=== PATIENT | female | born 1940 | race Caucasian/White ===

== ENCOUNTER 2019-05-24 13:58 | Emergency (ER) | payer OTHER ==
--- OUTSIDE RECORDS SUMMARY | 2019-05-24 14:01 | XMS REPORT ---
:1940 Author Organization eClinicalWorks Care Team Providers Name Role Phone Dawson, Na Provider Role Unavailable Allergies, Adverse Reactions, Alerts Substance Reaction Event Type Iodine Info Not Available Drug Allergy Problems Problem Type Condition Code Onset Dates Condition Status Assessment Renal insufficiency N28.9 Active Assessment Irritable bowel syndrome with both K58.2 Active constipation and diarrhea Problem Weight loss R63.4 Active Assessment Gastroesophageal reflux disease K21.9 Active without esophagitis Problem HTN (hypertension) I10 Active Assessment Primary insomnia F51.01 Active Problem Hypothyroidism E03.9 Active Problem Hyperlipidemia E78.5 Active Problem Allergic rhinitis J30.9 Active Problem History of thyroid cancer Z85.850 Active Problem Irritable bowel syndrome with both K58.2 Active constipation and diarrhea Assessment Depression with anxiety F41.8 Active Assessment Chronic a-fib I48.2 Active Problem Irritable bowel syndrome with K58.0 Active diarrhea Assessment Diarrhea, unspecified type R19.7 Active Problem Primary insomnia F51.01 Active Problem Gastroesophageal reflux disease K21.9 Active without esophagitis Problem Seasonal allergies J30.2 Active Problem Chronic obstructive pulmonary J44.9 Active disease (COPD) Assessment HTN (hypertension) I10 Active Assessment Hypothyroidism E03.9 Active Assessment Hyperlipidemia E78.5 Active Problem Depression with anxiety F41.8 Active Problem Chronic a-fib I48.2 Active Problem Situational insomnia F51.09 Active Problem Abnormal lung field R91.8 Active Medications Medication Code Code Instructions Start End Status Dosage System Date Date Synthroid [facility] 16244991926 100 MCG Orally Active 1 tablet Once a day on an empty stomach in the morning Ranitidine HCl [facility] 54634836098 150 orally at Active 1 tablet bedtime Ultram [facility] 61818768090 50 MG Orally Active 1 tablet every 6 hrs as needed Claritin [facility] 29383569221 10 MG Orally Active 1 tablet Once a day Coreg [facility] 00212338232 6.25 MG Orally Active as twice daily directed Cholestyramine ND 27910413531 4 GM Orally Apr 10, Active 1 packet Twice a day 2018 mixed with water or non-carbon ated drink Xarelto [facility] 01523857402 20 MG Orally Active 1 tablet Once a day with food Flonase [facility] 65520100048 50 MCG/ACT Active 1 spray in Nasally Once a each day nostril Albuterol Sulfate [facility] 96174703091 108 (90 Base) Active 2 puffs as MCG/ACT needed Inhalation every 6 hrs Vitamin D-[address] [facility] 56769076403 5000 UNIT Active as Orally directed Restasis [facility] 44541919557 0.05 % Active 1 drop Ophthalmic into Twice a day affected eye Ambien [facility] 12976005775 10 MG Orally Active 1 tablet Once a day at bedtime as needed Lipitor [facility] 56970490128 10 MG Orally Active 1 tablet Once a day Tylenol Arthritis [facility] 0 650 MG Orally Active 1 tablet Pain at bedtime Ventolin HFA [facility] 82491367437 108 (90 Base) Active 2 puffs as MCG/ACT needed Inhalation every 6 hrs PRN SOB BusPIRone HCl [facility] 91177296633 10 MG Orally Inactive 1 tablet Twice a day Paxil [facility] 98066749854 10 MG Orally Active 1 tablet Once a day in the morning Omeprazole [facility] 71343932740 40 MG Orally Active 1 capsule Once a day Results No Known Results Summary Purpose eClinicalWorks Submission
--- OUTSIDE RECORDS SUMMARY | 2019-05-24 14:01 | XMS REPORT ---
:1940 Author Organization eClinicalWorks Care Team Providers Name Role Phone Dawson, Na Provider Role Unavailable Allergies No Known Allergies Problems Problem Type Condition Code Onset Dates Condition Status Problem Hypothyroidism E03.9 Active Problem Hyperlipidemia E78.5 Active Problem Allergic rhinitis J30.9 Active Problem History of thyroid cancer Z85.850 Active Assessment Primary insomnia F51.01 Active Problem Irritable bowel syndrome with both K58.2 Active constipation and diarrhea Assessment Diarrhea, unspecified type R19.7 Active Problem Irritable bowel syndrome with K58.0 Active diarrhea Problem Primary insomnia F51.01 Active Problem Gastroesophageal reflux disease K21.9 Active without esophagitis Problem Seasonal allergies J30.2 Active Problem Chronic obstructive pulmonary J44.9 Active disease (COPD) Assessment Hyperlipidemia E78.5 Active Assessment HTN (hypertension) I10 Active Assessment Hypothyroidism E03.9 Active Problem Depression with anxiety F41.8 Active Problem Chronic a-fib I48.2 Active Problem Situational insomnia F51.09 Active Problem Weight loss R63.4 Active Problem Abnormal lung field R91.8 Active Problem HTN (hypertension) I10 Active Medications No Known Medications Results No Known Results Summary Purpose eClinicalWorks Submission
--- OUTSIDE RECORDS SUMMARY | 2019-05-24 14:01 | XMS REPORT ---
:1940 Author Organization eClinicalWorks Care Team Providers Name Role Phone Dawson, Na Provider Role Unavailable Allergies, Adverse Reactions, Alerts Substance Reaction Event Type Iodine Info Not Available Drug Allergy Problems Problem Type Condition Code Onset Dates Condition Status Assessment Renal insufficiency N28.9 Active Assessment Change in bowel habits R19.4 Active Assessment Irritable bowel syndrome with both K58.2 Active constipation and diarrhea Problem Weight loss R63.4 Active Assessment Gastroesophageal reflux disease K21.9 Active without esophagitis Problem HTN (hypertension) I10 Active Assessment Diarrhea, unspecified type R19.7 Active Problem Hypothyroidism E03.9 Active Problem Hyperlipidemia E78.5 Active Problem Allergic rhinitis J30.9 Active Problem History of thyroid cancer Z85.850 Active Problem Irritable bowel syndrome with both K58.2 Active constipation and diarrhea Assessment Depression with anxiety F41.8 Active Assessment Primary insomnia F51.01 Active Problem Irritable bowel syndrome with K58.0 Active diarrhea Assessment Chronic a-fib I48.2 Active Problem Primary insomnia F51.01 Active Problem [...] Start End Status Dosage System Date Date Ultram [facility] 48821993447 50 MG Orally Active 1 tablet as every 6 hrs needed Coreg [facility] 11687641111 6.25 MG Orally Active as directed twice daily Ranitidine HCl [facility] 21318505813 150 orally at Active 1 tablet bedtime Synthroid [facility] 24499059403 100 MCG Orally Active 1 tablet on Once a day an empty stomach in the morning BusPIRone HCl [facility] 79900020654 10 MG Orally Inactive 1 tablet Twice a day Paxil [facility] 54768510740 10 MG Orally Oct 08, Active 1 tablet in Once a day 2019 the morning Tylenol ND 0 650 MG Orally Active 1 tablet Arthritis Pain at bedtime Albuterol [facility] 85503260609 108 (90 Base) Active 2 puffs as Sulfate MCG/ACT needed Inhalation every 6 hrs Xarelto [facility] 96808411951 20 MG Orally Active 1 tablet Once a day with food Lipitor [facility] 21971938331 10 MG Orally Active 1 tablet Once a day Restasis [facility] 50872839328 0.05 % Active 1 drop into Ophthalmic affected Twice a day eye Vitamin D-3 [facility] 19043387099 5000 UNIT Active as directed Orally Claritin [facility] 39431131297 10 MG Orally Active 1 tablet Once a day Omeprazole [facility] 47967389319 40 MG Orally Active 1 capsule Once a day Ambien [facility] 88865481494 10 MG Orally Active 1 tablet at Once a day bedtime as needed Ventolin HFA [facility] 29517713394 108 (90 Base) Active 2 puffs as MCG/ACT needed Inhalation every 6 hrs PRN SOB Flonase [facility] 86514287104 50 MCG/ACT Active 1 spray in Nasally Once a each day nostril Results No Known Results Summary Purpose eClinicalWorks Submission
--- OUTSIDE RECORDS SUMMARY | 2019-05-24 14:02 | XMS REPORT ---
[...] both K58.2 Active constipation and diarrhea Problem Irritable bowel syndrome with K58.0 Active diarrhea Problem Primary insomnia F51.01 Active Problem Gastroesophageal reflux disease K21.9 Active without esophagitis Problem Seasonal allergies J30.2 Active Problem Chronic obstructive pulmonary J44.9 Active disease (COPD) Assessment Primary insomnia F51.01 Active Problem Depression with anxiety F41.8 Active Problem Chronic a-fib I48.2 Active Problem Situational insomnia F51.09 Active Problem Weight loss R63.4 Active Problem Abnormal lung field R91.8 Active Problem HTN (hypertension) I10 Active Medications Medication Code System Code Instructions Start End Date Status Dosage Date Meme [facility] 40118190864 10 MG Orally Active 1 tablet at Once a day bedtime as needed Results No Known Results Summary Purpose eClinicalWorks Submission
[2019-05-24] MEDS ORDERED: DIAZEPAM 5 MG TABLET ONE (15:39)
[2019-05-24] MEDS ORDERED: KETOROLAC 30 MG/ML INJ ONE (15:40)
--- NOTE | 2019-05-24 16:13 | RAD REPORT ---
EXAM DESCRIPTION: RAD - Lumbar Spine 3 Views - 05/24/2019 3:54 pm CLINICAL HISTORY: Back pain FINDINGS: The alignment of the lumbar spine is satisfactory. No fracture or dislocation is seen. Mild spondylosis involves the lumbar spine Bones are osteoporotic. Minimal scoliosis
--- NOTE | 2019-05-24 16:22 | EDPHYS ---
Physician Documentation [facility] Name: Ricarda Dixon Age: 79 yrs Sex: Female : 1940 Arrival Date: 05/24/2019 Time: 13:59 Bed 17 Private MD: Bessy Dawson ED Physician Miguel Kidd HPI: 05/24 16:16 This 79 yrs old Female presents to ER via Wheelchair with complaints of Back snw Pain, Leg Pain. 16:16 The patient presents with pain that is acute, with no known mechanism of injury. The snw symptoms are located in the low back. Onset: The symptoms/episode began/occurred gradually, 3 day(s) ago, and became worse and became persistent. The pain radiates to the right and left quadriceps. Associated signs and symptoms: Pertinent positives: none Pertinent negatives: constipation, incontinence, numbness, tingling, urinary retention, vomiting. The problem was sustained when bending over. Severity of symptoms: At their worst the symptoms were incapacitating, in the emergency department the symptoms have improved, moderately. The patient has experienced a previous episode, many years ago. The patient has not recently seen a physician. Historical: - Allergies: 14:09 Hydrocodone-Acetaminophen; sv 14:09 Iodine; sv 14:09 Morphine; sv 14:09 Sulfa (Sulfonamide Antibiotics); sv - PMHx: 14:09 Atrial Fib; THYROID CANCER; sv - Immunization history:: Adult Immunizations up to date. - Social history:: Smoking status: Patient uses tobacco products, denies chronic smoking, but will smoke occasionally. - Ebola Screening: : Patient negative for fever greater than or equal to 101.5 degrees Fahrenheit, and additional compatible Ebola Virus Disease symptoms Patient denies exposure to infectious person Patient denies travel to an Ebola-affected area in the 21 days before illness onset. ROS: 15:27 Constitutional: Negative for fever, chills, and weight loss, Eyes: Negative for injury, snw pain, redness, and discharge, ENT: Negative for injury, pain, and discharge, Neck: Negative for injury, pain, and swelling, Cardiovascular: Negative for chest pain, palpitations, and edema, Respiratory: Negative for shortness of breath, cough, wheezing, and pleuritic chest pain, Abdomen/GI: Negative for abdominal pain, nausea, vomiting, diarrhea, and constipation, : Negative for injury, bleeding, discharge, and swelling, MS/Extremity: Negative for injury and deformity, Skin: Negative for injury, rash, and discoloration, Neuro: Negative for headache, weakness, numbness, tingling, and seizure, Psych: Negative for depression, anxiety, suicide ideation, homicidal ideation, and hallucinations. 15:27 Back: Positive for decreased range of motion, pain at rest, pain with movement, of the low back area. Exam: 15:26 Constitutional: This is a well developed, well nourished patient who is awake, alert, snw and in no acute distress. Head/Face: Normocephalic, atraumatic. Eyes: Pupils equal round and reactive to light, extra-ocular motions intact. Lids and lashes normal. Conjunctiva and sclera are non-icteric and not injected. Cornea within normal limits. Periorbital areas with no swelling, redness, or edema. ENT: Nares patent. No nasal discharge, no septal abnormalities noted. Tympanic membranes are normal and external auditory canals are clear. Oropharynx with no redness, swelling, or masses, exudates, or evidence of obstruction, uvula midline. Mucous membranes moist. Neck: Trachea midline, no thyromegaly or masses palpated, and no cervical lymphadenopathy. Supple, full range of motion without nuchal rigidity, or vertebral point tenderness. No Meningismus. Chest/axilla: Normal chest wall appearance and motion. Nontender with no deformity. No lesions are appreciated. Cardiovascular: Regular rate and rhythm with a normal S1 and S2. No gallops, murmurs, or rubs. Normal PMI, no JVD. No pulse deficits. Respiratory: Lungs have equal breath sounds bilaterally, clear to auscultation and percussion. No rales, rhonchi or wheezes noted. No increased work of breathing, no retractions or nasal flaring. Abdomen/GI: Soft, non-tender, with normal bowel sounds. No distension or tympany. No guarding or rebound. No evidence of tenderness throughout. Skin: Warm, dry with normal turgor. Normal color with no rashes, no lesions, and no evidence of cellulitis. MS/ Extremity: Pulses equal, no cyanosis. Neurovascular intact. Full, normal range of motion. Neuro: Awake and alert, GCS 15, oriented to person, place, time, and situation. Cranial nerves II-XII grossly intact. Motor strength 5/5 in all extremities. Sensory grossly intact. Cerebellar exam normal. Normal gait. Psych: Awake, alert, with orientation to person, place and time. Behavior, mood, and affect are within normal limits. 15:26 Back: pain, that is moderate, that is severe, of the low back area, ROM is painful, with all movement, normal spinal alignment noted, CVA tenderness, is absent, vertebral tenderness, is not appreciated, muscle spasm, is appreciated in the low back area. Vital Signs: 14:40 BP 142 / 62; Pulse 72; Resp 17 S; Temp 98.4(O); Pulse Ox 97% on R/A; Weight 51.26 kg ca1 (R); Height 5 ft. 4 in. (162.56 cm) (R); Pain 2/10; 15:59 BP 158 / 64; Pulse 71; Resp 17 S; Pulse Ox 98% on R/A; ca1 16:47 BP 161 / 72; Pulse 73; Resp 16 S; Pulse Ox 96% on R/A; ca1 14:40 Body Mass Index 19.40 (51.26 kg, 162.56 cm) ca1 MDM: 14:32 Patient medically screened. lissette 16:22 Data reviewed: vital signs, nurses notes. Data interpreted: Pulse oximetry: on room air snw is 98 %. Interpretation: normal. Counseling: I had a detailed discussion with the patient and/or guardian regarding: the historical points, exam findings, and any diagnostic results supporting the discharge/admit diagnosis, lab results, radiology results, the need for outpatient follow up, to return to the emergency department if symptoms worsen or persist or if there are any questions or concerns that arise at home. Response to treatment: the patient's symptoms have mildly improved after treatment. Special discussion: Based on the history and exam findings, there is no indication for further emergent testing or inpatient evaluation. 05/24 15:24 Order name: Lumbar Spine (3 Views) XRAY; Complete Time: 16:15 snw Administered Medications: 15:35 Drug: Valium 5 mg Route: PO; ca1 16:34 Follow up: Response: No adverse reaction; Pain is decreased; RASS: Alert and Calm (0) ca1 15:36 Drug: TORadol 30 mg Route: IM; Site: right gluteus; ca1 16:34 Follow up: Response: No adverse reaction; Pain is decreased ca1 16:34 Drug: fentaNYL (PF) 25 mcg Route: IM; Site: right deltoid; ca1 17:00 Follow up: Response: No adverse reaction; Pain is decreased; RASS: Alert and Calm (0) ca1 Disposition: 05/25 06:12 Co-signature as Attending Physician, Miguel Kidd MD I agree with the assessment and [facility] plan of care. Disposition: 05/24/19 16:21 Discharged to Home. Impression: Low back pain, Muscle spasm of back. - Condition is Stable. - Discharge Instructions: Back Pain, Adult, Muscle Cramps and Spasms, Musculoskeletal Pain, Back Injury Prevention, [facility]mrs-[facility]-Ek[facility], Cryotherapy, Rehydration, Adult, Heat Therapy. - Prescriptions for Diclofenac Sodium 75 mg Oral Tablet Sustained Release - take 1 tablet by ORAL route 2 times per day; 30 tablet. orphenadrine citrate 100 mg Oral Tablet Sustained Release - take 1 tablet by ORAL route 2 times per day As needed; 20 tablet. - Medication Reconciliation Form, Thank You Letter, Antibiotic Education, Prescription Opioid Use form. - Follow up: Emergency Department; When: As needed; Reason: Worsening of condition. Follow up: Bessy Dawson MD; When: 1 - 2 days; Reason: Recheck today's complaints, Continuance of care, Re-evaluation by your physician. Signatures: Dispatcher [employer] Alona High RN RN dm5 Brionna Patricio RN RN sv Anderson, Corey, MD MD cha Therrien, Shelly, RAIL BONDER-C RAIL BONDER-Csnw Afsaneh Alejandre RN RN ca1 Corrections: (The following items were deleted from the chart) 05/24 17:00 16:21 05/24/2019 16:21 Discharged to Home. Impression: Low back pain; Muscle spasm of dm5 back. Condition is Stable. Forms are Medication Reconciliation Form, Thank You Letter, Antibiotic Education, Prescription Opioid Use. Follow up: Emergency Department; When: As needed; Reason: Worsening of condition. Follow up: Bessy Dawson; When: 1 - 2 days; Reason: Recheck today's complaints, Continuance of care, Re-evaluation by your physician. snw
--- NOTE | 2019-05-24 16:22 | ER ---
Nurse's Notes [facility] Name: Ricarda Dixon Age: 79 yrs Sex: Female : 1940 Arrival Date: 05/24/2019 Time: 13:59 Bed 17 Private MD: Bessy Dawson Diagnosis: Low back pain;Muscle spasm of back Presentation: 05/24 14:07 Presenting complaint: Patient states: low back pain after reaching for something and "I sv felt something." c/o BLE pain. Transition of care: patient was not received from another setting of care. Onset of symptoms was May 22, 2019. Care prior to arrival: None. 14:07 Method Of Arrival: Wheelchair sv 14:07 Acuity: SANTINO 4 sv 14:40 Risk Assessment: Do you want to hurt yourself or someone else? Patient reports no ca1 desire to harm self or others. 14:40 Initial Sepsis Screen: Does the patient meet any 2 criteria? No. Patient's initial ca1 sepsis screen is negative. Does the patient have a suspected source of infection? No. Patient's initial sepsis screen is negative. Historical: - Allergies: 14:09 Hydrocodone-Acetaminophen; sv 14:09 Iodine; sv 14:09 Morphine; sv 14:09 Sulfa (Sulfonamide Antibiotics); sv - PMHx: 14:09 Atrial Fib; THYROID CANCER; sv - Immunization history:: Adult Immunizations up to date. - Social history:: Smoking status: Patient uses tobacco products, denies chronic smoking, but will smoke occasionally. - Ebola Screening: : Patient negative for fever greater than or equal to 101.5 degrees Fahrenheit, and additional compatible Ebola Virus Disease symptoms Patient denies exposure to infectious person Patient denies travel to an Ebola-affected area in the 21 days before illness onset. Screenin:40 Abuse screen: Denies threats or abuse. Denies injuries from another. Nutritional ca1 screening: No deficits noted. Tuberculosis screening: No symptoms or risk factors identified. 14:40 Fall Risk Gait- Impaired (20 pts.). ca1 Assessment: 14:40 General: Appears in no apparent distress. comfortable, Behavior is calm, cooperative, ca1 appropriate for age. Pain: Complains of pain in low back area Pain currently is 2 out of 10 on a pain scale. at worst was 9 out of 10 on a pain scale. Quality of pain is described as sharp, Pain began 2-3 days ago. Aggravated by repositioning, weight bearing, Noted to be grimacing. Neuro: Level of Consciousness is awake, alert, obeys commands, Oriented to person, place, time, situation, Appropriate for age. Cardiovascular: Heart tones S1 S2 present Capillary refill < 3 seconds Patient's skin is warm and dry. Respiratory: Airway is patent Respiratory effort is even, unlabored, Respiratory pattern is regular, symmetrical, Breath sounds are clear bilaterally. GI: Abdomen is flat, non-distended, Bowel sounds present X 4 quads. Abd is soft and non tender X 4 quads. : No signs and/or symptoms were reported regarding the genitourinary system. EENT: No signs and/or symptoms were reported regarding the EENT system. Derm: Skin is intact, is healthy with good turgor, Skin is pink, warm \\T\\ dry. Musculoskeletal: Circulation, motion, and sensation intact. Capillary refill < 3 seconds, Range of motion: intact in all extremities. 15:35 Reassessment: Patient appears in no apparent distress at this time. Patient and/or ca1 family updated on plan of care and expected duration. Pain level reassessed. Patient is alert, oriented x 3, equal unlabored respirations, skin warm/dry/pink. 15:42 Reassessment: Pt to Xray. ca1 15:59 Reassessment: Patient appears in no apparent distress at this time. Patient is alert, ca1 oriented x 3, equal unlabored respirations, skin warm/dry/pink. 16:47 Reassessment: Patient appears in no apparent distress at this time. Patient is alert, ca1 oriented x 3, equal unlabored respirations, skin warm/dry/pink. Patient states feeling better. Vital Signs: 14:40 BP 142 / 62; Pulse 72; Resp 17 S; Temp 98.4(O); Pulse Ox 97% on R/A; Weight 51.26 kg ca1 (R); Height 5 ft. 4 in. (162.56 cm) (R); Pain 2/10; 15:59 BP 158 / 64; Pulse 71; Resp 17 S; Pulse Ox 98% on R/A; ca1 16:47 BP 161 / 72; Pulse 73; Resp 16 S; Pulse Ox 96% on R/A; ca1 14:40 Body Mass Index 19.40 (51.26 kg, 162.56 cm) ca1 ED Course: 13:59 Patient arrived in ED. ag5 14:00 Bessy Dawson MD is Private Physician. ag5 14:08 [facility] snw 14:08 Miguel Kidd MD is Attending Physician. snw 14:08 Triage completed. sv 14:31 Afsaneh Alejandre RN is Primary Nurse. ca1 14:40 Patient has correct armband on for positive identification. Bed in low position. Call ca1 light in reach. Side rails up X 1. Pulse ox on. NIBP on. Warm blanket given. 14:40 Arm band placed on right wrist. ca1 14:40 No provider procedures requiring assistance completed. ca1 15:53 Lumbar Spine (3 Views) XRAY In Process Unspecified. EDMS 16:21 Bessy Dawson MD is Referral Physician. snw 16:55 Patient did not have IV access during this emergency room visit. ca1 Administered Medications: 15:35 Drug: Valium 5 mg Route: PO; ca1 16:34 Follow up: Response: No adverse reaction; Pain is decreased; RASS: Alert and Calm (0) ca1 15:36 Drug: TORadol 30 mg Route: IM; Site: right gluteus; ca1 16:34 Follow up: Response: No adverse reaction; Pain is decreased ca1 16:34 Drug: fentaNYL (PF) 25 mcg Route: IM; Site: right deltoid; ca1 17:00 Follow up: Response: No adverse reaction; Pain is decreased; RASS: Alert and Calm (0) ca1 Outcome: 16:21 Discharge ordered by MD. snw 16:55 Discharged to home via wheelchair, with significant other. ca1 16:55 Condition: stable 16:55 Discharge instructions given to patient, Instructed on discharge instructions, follow up and referral plans. medication usage, Demonstrated understanding of instructions, follow-up care, medications, Prescriptions given X 2. 17:00 Patient left the ED. dm5 Signatures: Dispatcher [employer] EDMS Alona Rayo RN RN dm5 Brionna Patricio RN RN Betty Frias FNP-C TOMOGRAPHIC TECH-Csnw Afsaneh Alejandre RN RN ca1 Ramila Brewster ag5
[2019-05-24] MEDS ORDERED: FENTANYL CITR 100 MCG/2 ML ONE (16:32)
[2019-05-24 17:33] VITALS: TEMP 98.4
[2019-05-24 17:35] VITALS: BP 161/72; O2SAT 96
== END 2019-05-24 17:00 | disposition home or self-care (01) ==
LOC: ER 13:58
DX: M54.5 Low back pain (principal); M62.830 Muscle spasm of back; Z88.6 Allergy status to analgesic agent; Z88.2 Allergy status to sulfonamides; Z91.09 Other allergy status, other than to drugs and biological substances; Z85.850 Personal history of malignant neoplasm of thyroid; F17.210 Nicotine dependence, cigarettes, uncomplicated
CPT/HCPCS: 72100; 96372; 99284; J3010

== ENCOUNTER → 2020-09-13 | Day surgery (SDC) | payer OTHER ==
[2011-07-03 12:19] VITALS: BP 119/63
--- NOTE | 2020-09-13 12:04 | RAD REPORT ---
EXAM DESCRIPTION: US - Breast Core BX w/US Guidance - 09/13/2020 10:13 am CLINICAL HISTORY: ICD R 92.8 COMPARISON: August 30, 2020 ultrasound TECHNIQUE: The risks, benefits alternatives to the procedure were explained to the patient and infor med consent obtained. Skin and subcutaneous tissues anesthetized with lidocaine. The periareolar region mass abuts the implant. Under sonographic guidance a [address] d into the mass. Through this an 18 gauge needle was placed and multiple core biopsies obtained. The specimens varied in size from a few millimeters to 20 millimeters. This was given to pathology . Patient experienced no immediate complication IMPRESSION: Core biopsies of the periareolar left breast mass
== END ==
LOC: DS 09:09
PROVIDERS: ATTEND Family Medicine
DX: R92.8 Other abnormal and inconclusive findings on diagnostic imaging of breast (principal)
CPT/HCPCS: 19083; 88305

== ENCOUNTER 2020-10-16 11:23 | Observation (INO) | payer OTHER ==
[2020-10-14 15:56] LABS: Absolute Lymphocytes (CBC) 1.3 K/uL (0.7-4.9); Basophils % 1.2 % (0-1.3); Hematocrit 37.8 % (36.0-45.0); Lymphocytes % 27.4 % (15.3-44.8); MPV 7.6 fL (7.6-11.3); RBC Red Blood Cell Count 3.95 M/uL (3.86-4.86)
[2020-10-14 16:17] LABS: Potassium 5.3 mmol/L (3.5-5.1)
--- NOTE | 2020-10-14 16:30 | RAD REPORT ---
EXAM DESCRIPTION: RAD - Chest Pa And Lat (2 Views) - 10/14/2020 4:11 pm CLINICAL HISTORY: preop' Chest pain. COMPARISON: Chest Pa And Lat (2 Views) dated 09/22/2016; Abdomen 1 View (KUB) dated 04/28/2016; Abdom en 1 View (KUB) dated 04/27/2016; Chest Single View dated 04/26/2016 FINDINGS: The lungs are mildly emphysematous clear. The heart is upper limit of normal in size. No d isplaced fractures. Calcified breast implants noted. IMPRESSION: Mild COPD.
--- NOTE | 2020-10-16 07:30 | EKG ---
Test Date: 2020-10-14 Test Time: 14:30:21 Sports Internship: MATTHEW MEASUREMENT RESULTS: Intervals: Rate: 72 WI: QRSD: 90 QT: 392 QTc: 429 [place]: P: WI: QRS: 144 T: 148 INTERPRETIVE STATEMENTS: Suspect arm lead reversal, interpretation assumes no reversal Atrial fibrillation with a competing junctional pacemaker Voltage criteria for left ventricular hypertrophy Lateral infarct, age undetermined Abnormal ECG Compared to ECG 04/27/2016 06:50:56 Myocardial infarct finding now present Electronically Signed On 10-16-20 07:26:52 CDT by Sheldon Martinez
[2020-10-16] MEDS ORDERED: Ringers Lactate 1,000 ML IV ONE (12:10)
[2020-10-16] MEDS ORDERED: CELECOXIB 100 MG CAPSULE ONE (13:00)
[2020-10-16] MEDS ORDERED: ACETAMINOPHEN 500 MG TAB ONE (13:00)
[2020-10-16] MEDS: CEFAZOLIN/SWI 1gm 1 GM/10 ML SYR ONE ×3 (13:28→14:06)
[2020-10-16] MEDS ORDERED: LIDOCAINE 1% MPF 5 ML VIAL ONE (14:20)
[2020-10-16] MEDS ORDERED: FENTANYL CITR 100 MCG/2 ML ONE ×2 (14:20→15:51)
[2020-10-16] MEDS ORDERED: MIDAZOLAM HCL 2 MG/2 ML INJ ONE (14:20)
[2020-10-16] MEDS ORDERED: propofoL 200 MG/20 ML VIAL IV ONE (14:20)
[2020-10-16] MEDS ORDERED: ROCURONIUM 50 MG/5 ML VIAL IV ONE (14:20)
[2020-10-16] MEDS ORDERED: dexAMETHasone 10 MG/ML VIAL ONE (14:46)
[2020-10-16] MEDS ORDERED: KETOROLAC 30 MG/ML INJ ONE (14:46)
[2020-10-16] MEDS ORDERED: ONDANSETRON 4 MG/2 ML VIAL ONE (15:06)
[2020-10-16] MEDS ORDERED: GLYCOPYRROLATE 0.2 MG/ML SYR ONE (15:06)
[2020-10-16] MEDS ORDERED: ONDANSETRON 4 MG/2 ML VIAL IV PRN (15:10)
[2020-10-16] MEDS ORDERED: MEPERIDINE HCL 25 MG/ML SYR IV PRN (15:10)
--- NOTE | 2020-10-16 15:10 | P.BOP ---
Preoperative diagnosis: Left breast cancer Postoperative diagnosis: same Primary procedure: 1. Left modified radical mastectomy Secondary procedure: 2. Left breast implant removal Risk Compliance Analyst: HARSHIL MINAYA (TIE PRESSER) Estimated blood loss: <50cc Specimen: eft breast with axillary dissection and breast implant. Findings: as above Anesthesia: General Complications: None Drain(s): JAMAL drain Transferred to: Recovery Room Condition: Good
--- OUTSIDE RECORDS SUMMARY | 2020-10-16 15:37 | XMS REPORT | Continuity of Care Document ---
:1940 Author Organization [facility] t Address [address] [place] [address] Care Team Providers Name Role Phone Unavailable Unavailable Unavailable Problems This patient has no known problems. Allergies, Adverse Reactions, Alerts Allergy Allergy Status Severity Reaction(s) Onset Inactive Treating Comm ents Source Name Type Date Date Clinician Iodine Adverse Active Info Not [facility] Reaction Available [facility] Medications Ordered Filled Start Stop Current Ordering Indication Dosage Frequency Signature Comments Components Source Medication Medication Date Date Medication? Clinician (SIG) Name Name Pantoprazol Pantoprazol 2020-0 Yes Na Dawson [address] [facility] Sodium e Sodium 7-09 [facility] Oseltamivir Oseltamivir 2019-0 Yes Na Dawson [address] [facility] Phosphate Phosphate 2-25 [facility] Famotidine Famotidine Yes Na Dawson [address] [facility] Restasis Restasis Yes Na Dawson [address] [facility] Ranitidine Ranitidine Yes Na Dawson [address] [facility] Coreg Coreg Yes Na Dawson as [facility] directed [facility] Claritin Claritin Yes Na Dawson [address] [facility] Tylenol Tylenol Yes Na Dawson [address] Arthritis Arthritis [facility] Cholestyram Cholestyram Yes Na Dawson [address] [facility] ine ine mixed with [facility] water or [facility] non-carbon l ated drink [facility] Synthroid Synthroid Yes Na Dawson TAKE ONE [facility] TABLET BY [facility] MOUTH [facility] EVERY l MORNING ON [facility]pat[facility] AN EMPTY ent STOMACH Clinics Vitamin D-3 Vitamin D-3 Yes Na Dawson as [facility] directed [facility] Ultram Ultram Yes Na Dawson [address] [facility] as needed [facility] Ambien Ambien Yes Na Dawson TAKE ONE [facility] TABLET BY [facility] AT [facility] BEDTIME l NEEDED [facility] Synthroid Synthroid Yes Na Dawson [address] [facility] on an [facility] empty [facility] stomach in l the Outpat[facility] morning ent Clinics Lipitor Lipitor Yes Na Dawson [address] [facility] Xarelto Xarelto Yes Na Dawson [address] [facility] with food [facility] Paxil Paxil Yes Na Dawson [address] [facility] in the [facility] morning [facility] Albuterol Albuterol Yes Na Dawson [address] [facility] Sulfate Sulfate needed [facility] Omeprazole Omeprazole Yes Na Dawson [address] [facility] Flonase Flonase Yes Na Dawson [address] [facility] each [facility] nostril [facility] Ventolin Ventolin Yes Na Dawson [address] [facility] HFA HFA needed [facility] Synthroid Synthroid Yes Na Dawson TAKE ONE [facility] TABLET BY [facility] EVERY l MORNING ON [facility] AN EMPTY ent STOMACH Clinics Procedures This patient has no known procedures. Encounters Start End Encounter Admission Attending Care Care Encounter Source Date/Time Date/Time Type Type Clinicians Facility Department ID 2020-09-26 2020-09-26 Outpatient [facility] [id number] [facility] 2020-09-20 2020-09-20 Outpatient [facility] [id number] [facility] 2020-09-09 2020-09-09 Outpatient [facility] [id number] [facility] 2020-09-03 2020-09-03 Outpatient [facility] [id number] [facility] 2020-08-22 2020-08-22 Outpatient [facility] [id number] [facility] 2020-05-24 2020-05-24 Outpatient [facility] [id number] [facility] 2020-02-23 2020-02-23 Outpatient [facility] [id number] [facility] 2019-11-22 2019-11-22 [facility] [id number] [facility] 16:16:00 16:16:00 t [employer] s - Drive [facility] l Medicine Outpati ent Clinics 2019-11-16 2019-11-16 [facility] [id number] [facility] 13:40:00 13:40:00 t [employer] s - Drive [facility] l Medicine Outpati ent Clinics 2019-09-26 2019-09-26 Outpatient [facility] [id number] [facility] 2019-08-11 2019-08-11 [facility] [id number] [address] 13:40:00 13:40:00 t [employer] s - Drive [facility] Family [facility] l Medicine Outpati ent Clinics 2019-07-10 2019-07-10 [facility] [id number] 13:46:00 13:46:00 t [employer] s - Drive [facility] Family [facility] l Medicine Outpati ent Clinics 2019-07-04 2019-07-04 [facility] [id number] 11:30:00 11:30:00 t [employer] s - Drive [facility] Medicine Outpati ent Clinics 2019-05-15 2019-05-15 [facility] [id number] [address] 16[facility]18:00 16:18:00 t [employer] s - Drive [facility] Medicine Outpati ent Clinics 2019-04-10 2019-04-10 [facility] [id number] 10:20:00 10:20:00 t [employer] s - Drive [facility] Medicine Outpati ent Clinics 2019-03-22 2019-03-22 [facility] [id number] [facility] 16[facility]26:00 16:26:00 t Trade [employer] - [employer] [facility] Medicine Outpati ent Clinics 2019-02-14 2019-02-14 [facility] [id number] [address] 13:40:00 13:40:00 t [employer] - [employer] [facility] Medicine Outpati ent Clinics 2019-01-03 2019-01-03 [facility] [id number] 13:00:00 13:00:00 t [employer] s - [employer] [facility] Medicine Outpati ent Clinics 2018-12-06 2018-12-06 [facility] [id number] 14:36:00 14:36:00 t Specialty/U Kira kes - Specialty rology Memori a /Urology Clinic l Clinic Outpati ent Clinics 2018-11-24 2018-11-24 [facility] [id number] 14:36:00 14:36:00 t Specialty/U Kira kes - Specialty rology Memori a /Urology Clinic l Clinic Outpati ent Clinics 2018-11-24 2018-11-24 [facility] [id number] [address] 14:30:00 14:30:00 t Specialty/U Kira kes - Specialty rology Memori a /Urology Clinic l Clinic Outpati ent Clinics 2018-11-23 2018-11-23 [facility] [id number] 18:48:00 18:48:00 t Urgent Urgent Care L ukes - Care Clinic [facility] Clinic l Outpati ent Clinics 2018-11-23 2018-11-23 [facility] [id number] 16:38:00 16:38:00 t Trade [employer] s - Drive [facility] l Medicine Outpati ent Clinics 2018-11-23 2018-11-23 [facility] [id number] 15:00:00 15:00:00 t Urgent Urgent Care L [facility] Clinic [facility] l Outpati ent Clinics 2018-10-04 2018-10-04 [facility] [id number] 13:20:00 13:20:00 t Trade [employer] s - Drive [facility] Medicine Medicine Outpati ent Clinics 2018-09-01 2018-09-01 [facility] [id number] 16:09:00 16:09:00 t Trade [employer] s - [employer] [facility] Medicine Outpati ent Clinics 2018-08-30 2018-08-30 [facility] [id number] 13:20:00 13:20:00 t Trade [employer] s - Drive [facility] Medicine Outpati ent Clinics 2018-07-06 2018-07-06 [facility] [id number] 09:16:00 09:16:00 t Trade [employer] s - [employer] [facility] l Medicine Outpati ent Clinics 2018-06-27 2018-06-27 [facility] [id number] [facility] 14:30:00 14:30:00 t Trade [employer] s - Drive [facility] Medicine Outpati ent Clinics 2018-03-24 2018-03-24 [facility] [id number] [facility] 15:00:00 15:00:00 t Trade [employer] s - Drive [facility] Medicine Outpati ent Clinics 2017-12-23 2017-12-23 [facility] [id number] [facility] 14:30:00 14:30:00 t Trade [employer] s - Drive [facility] Medicine Outpati ent Clinics 2017-10-21 2017-10-21 [facility] [id number] 09:30:00 09:30:00 t Trade Trade [employer] [facility] 2017-09-21 2017-09-21 [facility] [id number] 11:12:00 11:12:00 t [employer] [facility] ent Clinics 2017-09-20 2017-09-20 Outpatient [facility] [id number] 14:30:00 14:30:00 [employer] [facility] ent Clinics Results This patient has no known results.
[2020-10-16] MEDS ORDERED: Mastisol Adhesive Liq ONE (15:51)
[2020-10-16] MEDS ORDERED: NA CHLORIDE 0.9% 1,000 ML IV SCH (16:00)
[2020-10-16] MEDS ORDERED: SUCCINYLCHOLINE 20 MG/ML (10 ML) IV ONE (16:07)
[2020-10-16] MEDS ORDERED: HYDROMORPHONE HCL 1 MG/ML INJ ONE (16:12)
--- NOTE | 2020-10-16 17:07 | P.CNS ---
Date of Consult: 10/16/20 Reason for Consult: Afib, med management s/p mastectomy Requesting Physician: Toño Zepeda Primary Care Provider: Dr. Dawson Chief Complaint: left breast mass History of Present Illness: 80yo F, PMH: thyroid cancer s/p thyroidectomy, GERD, HTN, hemorrhoids, paroxysmal Afib on xarelto Patient was found to have L breast mass/lump and underwent L modified radical mastectomy today. She currently feels well, without any complaints. Tolerating dinner without nausea/vomiting. Reports pain is controlled at this time. Denies any recent illness, has otherwise been in her usual state of health. Reports prior episode of "crashing after anesthesia". Has h/o paroxysmal afib. Bloodwork done recently WNL, vitals WNL and stable except some mildly elevated blood pressure. Otherwise denies nausea/vomiting/diarrhea, dysuria, chest pain, abd pain, numbness/tingling, weakness. Allergies codeine Allergy (Verified 10/14/20 15:13) Nausea/Vomiting iodine [Iodine] Allergy (Verified 10/14/20 15:13) Rash morphine Allergy (Verified 10/14/20 15:13) Nausea/Vomiting Sulfa (Sulfonamide Antibiotics) [Sulfa(Sulfonamide Antibiotics)] Allergy (Verified 10/14/20 15:13) Rash sulfate ion Allergy (Verified 10/14/20 15:13) headache Hydrocodone-Acet Allergy (Uncoded 10/14/20 15:13) Nausea/Vomiting Home Medications: Acetaminophen [Tylenol Extra Strength] 500 mg PO DAILYPRN PRN 10/14/20 Atorvastatin Calcium [Lipitor] 10 mg PO DAILY 10/14/20 Bifidobacterium Infantis [Align] 4 mg PO DAILY 10/14/20 Cholecalciferol (Vitamin D3) [Vitamin D 5,000 Iu Cap] 5,000 unit PO DAILY 10/14/20 Famotidine [Pepcid] 40 mg PO BEDTIME 10/14/20 Iron 18 mg PO DAILY 10/14/20 Levothyroxine [Synthroid] 100 mcg PO [id number] 10/14/20 Loratadine [Claritin] 10 mg PO DAILYPRN PRN 10/14/20 Montelukast [Singulair] 10 mg PO DAILY 10/14/20 PARoxetine HCL [Paxil] 10 mg PO DAILY 10/14/20 Pantoprazole [Protonix Tab] 40 mg PO DAILY 10/14/20 Rivaroxaban [Xarelto] 20 mg PO DAILY AT SUPPER 10/14/20 Zolpidem Tartrate [Ambien] 10 mg PO BEDTIME 10/14/20 carvediloL [Carvedilol] 6.25 mg PO BID 10/14/20 - Past Medical/Surgical History Diabetic: No -: Atrial fibrillation, cardiology-Dr Barry on anti coagulation -: Hyperlipidemia -: Surgical hypothyroidism -: Hypertension -: History of thyroid cancer post surgery -: Diverticulosis with history of diverticulitis -: GERD -: Cataracts -: Insomnia -: Former tobacco abuse -: Insomnia -: Tobacco abuse -: Thyroidectomy -: Hysterectomy -: Appendectomy -: Cataract Surgery -: Cholecystectomy -: Bilateral breast implants -: Right femoral hernia repair Psychosocial/ Personal History: She is . She has 2 children. 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 - Family History Mother Medical History: Heart disease Father Medical History: Heart disease, Hypertension, Stroke, Cancer - Social History Smoking Status: Current some day smoker Alcohol use: No CD- Drugs: No Caffeine use: Yes Place of Residence: Home Review of Systems 10-point ROS is otherwise unremarkable Physical Examination Temp Pulse Resp BP Pulse Ox 98 F 80 16 166/58 H 10/16/20 16:12 10/16/20 16:12 10/16/20 16:12 10/16/20 16:12 General: Alert, In no apparent distress, Oriented x3 HEENT: EOMI, Sclerae nonicteric Neck: Supple, No LAD Respiratory: Clear to auscultation bilaterally, Normal air movement Cardiovascular: No edema, Regular rate/rhythm, Normal S1 S2 Gastrointestinal: Soft and benign, Non-distended, No tenderness Musculoskeletal: No swelling Integumentary: Other (L chest wall with surgical dressing in place, c/d/i) Neurological: Normal speech, Normal strength at 5/5 x4 extr, Normal affect Physician Review Additional Text: Problem List L breast mass s/p modified radical mastectomy (10/16) Paroxysmal Afib HTN GERD Thyroid cancer s/p thyroidectomy Nicotine dependence -doing well post-op, reports h/o "crashing after anesthesia" previously, but feels well, eating dinner -reports feeling comfortable now, continue PRN pain medication per surgery, on gentle IVF as well -reviewed med list, restart anti-hypertensives / afib medication (beta edwardo), holding xarelto -restart synthroid, SSRI, PPI -will continue to monitor overnight -counselled on smoking cessation VTE: SCDs Dispo: dc per general surgery, likely tomorrow Time Spent Managing Pts care (In Minutes): 55
[2020-10-16 17:08] VITALS: BMI 19.7
[2020-10-16] MEDS: CEFOXITIN/SWI 1gm 1 GM/10 ML SYR IVP SCH ×2 (17:17→23:18)
[2020-10-16] MEDS ORDERED: PNEUMOCOCCAL VACCINE 0.5 ML IMVAC ONE (18:00)
[2020-10-16] MEDS ORDERED: CEFOXITIN 1 GM in NA CHLORIDE 0.9% 100 ML IVPB SCH (18:00)
[2020-10-16] MEDS ORDERED: HOME MED 1 EA UNK (Famotidine [Pepcid] 40 MG Tablet) PO SCH (21:00)
[2020-10-16] MEDS ORDERED: FAMOTIDINE 20 MG TAB PO SCH (21:00)
[2020-10-16] MEDS: carvediloL 6.25 MG TAB PO SCH (21:40)
[2020-10-17] MEDS: TRAMADOL 37.5mg/APAP 325mg PER TAB PO PRN ×2 (00:55→08:32)
[2020-10-17] MEDS: CEFOXITIN/SWI 1gm 1 GM/10 ML SYR IVP SCH (05:32)
[2020-10-17 05:37] LABS: Absolute Lymphocytes (CBC) 0.6 K/uL (0.7-4.9); Basophils % 0.5 % (0-1.3); Hematocrit 34.3 % (36.0-45.0); Lymphocytes % 7.3 % (15.3-44.8); MPV 8.3 fL (7.6-11.3); RBC Red Blood Cell Count 3.59 M/uL (3.86-4.86)
[2020-10-17 05:55] LABS: BUN Blood Urea Nitrogen 16 mg/dL (7-18); Bicarbonate 26 mmol/L (21-32); Glucose Level 125 mg/dL (74-106); Potassium 4.9 mmol/L (3.5-5.1); Sodium Level 137 mmol/L (136-145)
[2020-10-17] MEDS ORDERED: LEVOTHYROXINE SOD 0.1 MG TAB PO SCH (06:00)
[2020-10-17 07:39] LABS: Blood Morphology Comment NOT SEEN (NOT SEEN); Platelet Estimate ADEQ; White Blood Cell Scan OK (OK)
[2020-10-17] MEDS: carvediloL 6.25 MG TAB PO SCH (08:34)
[2020-10-17] MEDS ORDERED: ATORVASTATIN 10 MG TAB PO SCH (09:00)
[2020-10-17] MEDS ORDERED: MONTELUKAST 10 MG TAB PO SCH (09:00)
[2020-10-17] MEDS ORDERED: PANTOPRAZOLE 40MG TABLET PO SCH (09:00)
[2020-10-17] MEDS ORDERED: PARoxetine HCL 10 MG TAB PO SCH (09:00)
--- NOTE | 2020-10-17 09:58 | P.PN ---
Subjective Date of Service: 10/17/20 Primary Care Provider: Dr. Dawson Chief Complaint: left breast mass Subjective: Improving (tolerating diet, no nausea/vomiting, no flatus yet, no abd distention. ambulated in room without issue, no dizziness/lightheadedness, voiding) Review of Systems 10-point ROS is otherwise unremarkable Physical Examination - Vital Signs Temperature: 97.9 F Blood Pressure: 154/70 Pulse: 67 Respirations: 16 Pulse Ox (%): 95 - Studies Laboratory Data (last 24 hrs) 10/17/20 04:57: Sodium 137, Potassium 4.9, BUN 16, Creatinine 0.60, Glucose 125 H 10/17/20 04:57: WBC 8.60 D, Hgb 11.5 L, Hct 34.3 L, Plt Count 209 Assessment & Plan Physician Review Additional Text: Physical Exam General: Alert, In no apparent distress HEENT: EOMI, Sclerae nonicteric Respiratory: Clear to auscultation bilaterally, Normal air movement Cardiovascular: No edema, irregularly irregular rhythm Gastrointestinal: Soft and benign, Non-distended, No tenderness Integumentary: L chest wall with surgical dressing in place, c/d/i Neurological: Normal speech, Normal strength at 5/5 x4 extr, Normal affect Problem List L breast mass s/p modified radical mastectomy (10/16) Paroxysmal Afib on chronic anticoagulation (xarelto) HTN GERD Thyroid cancer s/p thyroidectomy Nicotine dependence -doing well post-op, tolerating diet, voiding, ambulating in room ok -reports pain is controlled -vitals stable -resumed most of home medications -holding xarelto per general surgery VTE: SCDs Dispo: per general surgery, overall doing well and stable Time Spent Managing Pts Care (In Minutes): 35
[2020-10-17 10:00] VITALS: O2SAT 98
--- NOTE | 2020-10-17 11:50 | P.DS ---
Admission Date: 10/16/20 Discharge Date: 10/17/20 Primary Care Provider: Dr. Dawson Disposition: ROUTINE DISCHARGE Discharge Condition: GOOD Reason for Admission: left breast mass Vital Signs/Physical Exam: Temp Pulse Resp BP Pulse Ox 97.9 F 67 16 154/70 H 95 10/17/20 10:04 10/17/20 10:04 10/17/20 10:04 10/17/20 10:04 10/17/20 10:04 General: Alert, Oriented x3, Cooperative HEENT: PERRLA, EOMI Neck: Supple Respiratory: Normal air movement Cardiovascular: Normal pulses Gastrointestinal: Soft and benign Laboratory Data at Discharge: WBC 8.60 K/uL (4.3-10.9) D 10/17/20 04:57 Hgb 11.5 g/dL (12.0-15.0) L 10/17/20 04:57 Hct 34.3 % (36.0-45.0) L 10/17/20 04:57 Plt Count 209 K/uL (152-406) 10/17/20 04:57 Sodium 137 mmol/L (136-145) 10/17/20 04:57 Potassium 4.9 mmol/L (3.5-5.1) 10/17/20 04:57 BUN 16 mg/dL (7-18) 10/17/20 04:57 Creatinine 0.60 mg/dL (0.55-1.3) 10/17/20 04:57 Glucose 125 mg/dL (74-106) H 10/17/20 04:57 Home Medications: Acetaminophen [Tylenol Extra Strength] 500 mg PO DAILYPRN PRN 10/14/20 Atorvastatin Calcium [Lipitor] 10 mg PO DAILY 10/14/20 Bifidobacterium Infantis [Align] 4 mg PO DAILY 10/14/20 Cholecalciferol (Vitamin D3) [Vitamin D 5,000 Iu Cap] 5,000 unit PO DAILY 10/14/20 Famotidine [Pepcid] 40 mg PO BEDTIME 10/14/20 Iron 18 mg PO DAILY 10/14/20 Levothyroxine [Synthroid] 100 mcg PO [id number] 10/14/20 Loratadine [Claritin] 10 mg PO DAILYPRN PRN 10/14/20 Montelukast [Singulair] 10 mg PO DAILY 10/14/20 PARoxetine HCL [Paxil] 10 mg PO DAILY 10/14/20 Pantoprazole [Protonix Tab] 40 mg PO DAILY 10/14/20 Rivaroxaban [Xarelto] 20 mg PO DAILY AT SUPPER 10/14/20 Zolpidem Tartrate [Ambien] 10 mg PO BEDTIME 10/14/20 carvediloL [Carvedilol] 6.25 mg PO BID 10/14/20 Physician Discharge Instructions: Record JAMAL drain q24h LEave dressing intact until next visit Resume home meds including anticoagulants Diet: AHA Activity: No lifting more than 10 lbs Followup: Toño Zepeda MD [ACTIVE - CAN ADMIT] - 10/21/20
[2020-10-17 12:03] VITALS: BP 137/63; TEMP 98.6
== END 2020-10-17 12:59 | disposition home or self-care (01) ==
LOC: OR 11:23 → 2ND 15:34
PROVIDERS: ADMIT Surgery; ATTEND Surgery
PROC: 0HPU0YZ Removal of Other Device from Left Breast, Open Approach (ICD-10-PCS; 2020-10-16)
PROC: 0HTU0ZZ Resection of Left Breast, Open Approach (ICD-10-PCS; principal; 2020-10-16 12:45)
DX: C50.912 Malignant neoplasm of unspecified site of left female breast (principal); C77.3 Secondary and unspecified malignant neoplasm of axilla and upper limb lymph nodes; Z85.850 Personal history of malignant neoplasm of thyroid; K21.9 Gastro-esophageal reflux disease without esophagitis; I10 Essential (primary) hypertension; I48.0 Paroxysmal atrial fibrillation; Z79.01 Long term (current) use of anticoagulants; Z20.822 Contact with and (suspected) exposure to COVID-19; Z17.0 Estrogen receptor positive status [ER+]; E78.5 Hyperlipidemia, unspecified; G47.00 Insomnia, unspecified; Z87.891 Personal history of nicotine dependence; M19.90 Unspecified osteoarthritis, unspecified site
CPT/HCPCS: 93005; 85025 ×2; 80048 ×2; 36415 ×2; 88309; 71046; 97161; 94010; 19307; 19328; U0003; J2704; J0330; J3010 ×2; J1100; J1170; J0690; J7120; J7030; J2405; G0379; G0378 ×2; 88307; J2250

== ENCOUNTER 2022-09-05 15:02 | Observation (INO) | payer BC ==
--- OUTSIDE RECORDS SUMMARY | 2022-09-05 15:11 | XMS REPORT | Continuity of Care Document ---
:[address] [facility] t Address [address] [facility] [place] [address] Care Team Providers Name Role Phone JUMANA [place] Primary Care Physician Unavailable Adelita Nowak Attending Clinician Unavailable Jumana [place] Attending Clinician Unavailable Ayo Cornell MD Attending Clinician Radiology Attending Clinician Unavailable RADIOLOGY Attending Clinician Unavailable Doctor Unassigned, [place] Attending Clinician Unavailable Felix-Mbayo_A_AH Attending Clinician Unavailable AYO CORNELL Admitting Clinician Unavailable PARI SAWYER Admitting Clinician Unavailable MARIA FERNANDA DESOUZA Admitting Clinician Unavailable Felix-Mbayo_A_AH Admitting Clinician Unavailable Payers Payer Name Policy Type Policy Number Effective Date Expiration Date S jose CIGNA TOTAL [id number] 2021 CARE MEDICARE 00:00:00 HMO DSNP Cign[employer]Spr C1 [id number] Common Sp palmer ing Medicare - [facility] Cigna-HealthSpr C1 [id number] Common Sp palmer ing Medicare - [facility] Cigna-HealthSpr C1 [id number] Common Sp palmer ing Medicare - [facility] Cigna-HealthSpr C1 [id number] Common Sp palmer ing Medicare - [facility] [place] OF [place] [id number] 2019 - [place] 00:00:00 (MEDICARE REPLACEMENT/ADV ANTAGE - HMO) Problems Condition Condition Condition Status Onset Resolution Last Treating Co mments Source Name Details Category Date Date Treatment Clinician Date Lung field Abnormal Problem Com mon abnormal lung field Spir it [facility] Hypertensi HTN Problem Commo n on (hypertens Spirit ion) - [facility] [id number] History of Problem C ommon 107 bilateral Spirit breast - [facility] implants [facility] [id number] Abnormal Problem Comm on mammogram [facility] [id number] Estrogen Problem Comm on receptor [facility] positive [facility] status [ER+] [facility] Neoplasm Neoplasm Problem Commo n related related Spirit pain pain - 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 - [facility] [id number] Seasonal Problem Comm on allergies [facility] Allergic Acute Problem Common rhinitis allergic [facility] rhinitis [facility] Hypothyroi Hypothyroi Problem C ommon dism dism [facility] [id number] Depression Problem Co mmon with Spirit anxiety [facility] Hyperlipid Hyperlipid Problem C ommon emia emia [facility] Primary Primary Problem Common insomnia insomnia [facility] Atrial +5th digit Problem Commo n fibrillati eff Spirit on 02/07/19*Ch - CHI ronic a-fib [facility] Chronic Chronic Problem Common obstructiv obstructiv Sp palmer e e - [facility] pulmonary pulmonary disease [facility] (COPD) [facility] [id number] Gastroesop Problem Co mmon hageal Spirit reflux - [facility] disease [facility] esophagiti Medica [facility] [id number] History of Problem Co mmon thyroid [facility] cancer [facility] [id number] 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 - [facility] with diarrhea [facility] [id number] COPD with Problem Com mon exacerbati [facility] on [facility] [id number] Breast Problem Common implant in [facility] situ [facility] Weight Weight Problem Common loss loss [facility] [id number] S/P left Problem Comm on mastectomy [facility] Allergies, Adverse Reactions, Alerts Allergy Allergy Status Severity Reaction(s) Onset Inactive Treating Comm ents Source Name Type Date Date Clinician IODINE DRUG Active Med Hives 2021-05 [facility] INGREDI 2-20 ity of 00:00: [place] [address] Medical Branch Iodine Drug Active Hives 2021-05 Pt states [facility] Allergy 2-20 iodine ity of 00:00: allergy [address] Medical years Branch ago, reacting in itching/r edness to skin 463 Drug Active Unknown Common allergy [facility] codeine codeine Active rash [facility] NO KNOWN Drug Active Univers ALLERGIE Class ity of S [facility] Social History Social Habit Start Date Stop Date Quantity Comments Source History of Current Smoker Common Spi rit - Tobacco Use [facility] Exposure to 2022-06-21 2022-07-01 Not sure [facility] SARS-CoV-2 00:00:00 15:14:00 [facility] (event) Branch Sex Assigned At [birth year] [facility] 00:00:00 00:00:00 [facility] Smoking Status Start Date Stop Date Source Tobacco smoking [facility] consumption unknown Medical Bran ch Current Smoker 2022-03-10 00:00:00 Common Spiri t - [facility] nter Former Smoker 2021-09-25 00:00:2021-09-25 Common Spiri t [facility] Ce nter Medications Ordered Filled Start Stop Current Ordering Indication Dosage Frequency Signature Comments Components Source Medication Medication Date Date Medication? Clinician (SIG) Name Name gadobenate 2022- No [id number] .2mL/kg 0.2 mL/kg, Univers dimeglumine 07-01 Intravenou i ty of (MULTIHANCE 22:30: 22:21 s, ONCE, 1 [place] -15 mL) 00 :00 dose, On Medical injection Wed Branch 0.2 mL/kg 07/01/22 at 1630, Routine Ambien 10 Ambien No 1{table QD Ambien 10 MG MG 06-15 t_at_be MG 00:00: dtime_a 00 s_neede d} iopamidol 2021-05- No [id number] 78mL 78 mL, U nivers (ISOVUE 2-20 12-20 Intravenou ity o f 300-500 mL) 21:00: 20:09 s, ONCE, 1 [place] injection 00 :00 dose, On Medica l 78 mL Tue Branch 04/28/22 at 1500, Routine Ambien 10 Ambien 2021-05 No 1{table QD Ambien 10 MG MG - t_at_be MG 00:00: dtime_a 00 s_neede d} Ambien 10 Ambien 2021-05 No 1{table QD Ambien 10 MG MG 05-10 t_at_be MG 00:00: dtime_a 00 s_neede d} Ambien 10 Ambien 2021-05 No 1{table QD Ambien 10 MG MG - t_at_be MG 00:00: dtime_a 00 s_neede d} Ambien 10 Ambien 2021-05 No 1{table QD Ambien 10 MG MG 1-01 t_at_be MG 00:00: dtime_a 00 s_neede d} Ambien 10 Ambien 2021-05 No 1{table QD Ambien 10 MG MG - t_at_be MG 00:00: dtime_a 00 s_neede d} Ambien 10 Ambien 2021-05 No 1{table QD Ambien 10 MG MG 05-10 t_at_be MG 00:00: dtime_a 00 s_neede d} Ambien 10 Ambien 10 2021-05 No 1{table QD Ambien 10 MG MG 05-10 t_at_be MG 00:00: dtime_a 00 s_neede d} traMADol traMADol 2021-05- No 1{table traMADol HCl 50 MG HCl 50 MG 05-10 t_as_ne HCl 50 MG 00:00: 00:00 eded} 00 :00 traMADol traMADol 2021-05- No 1{table traMADol HCl 50 MG HCl 50 MG 05-10 t_as_ne HCl 50 MG 00:00: 00:00 eded} 00 :00 Zolpidem Zolpidem 2021-0 No 1{table QD Zolpidem Tartrate 10 Tartrate 10 8-31 t_at_be Tartrate MG MG 00:00: dtime_a 10 MG 00 s_neede d} Zolpidem Zolpidem 2021-0 No 1{table QD Zolpidem Tartrate 10 Tartrate 10 8-31 t_at_be Tartrate MG MG 00:00: dtime_a 10 MG 00 s_neede d} Zolpidem Zolpidem 2021-0 No 1{table QD Zolpidem Tartrate 10 Tartrate 10 8-31 t_at_be Tartrate MG MG 00:00: dtime_a 10 MG 00 s_neede d} Zolpidem Zolpidem 2021-0 No Zolpidem Tartrate 10 Tartrate 10 8-31 Tartrate MG MG 00:00: 10 MG 00 Zolpidem Zolpidem 2021-0 No 1{table QD Zolpidem Tartrate 10 Tartrate 10 8-31 t_at_be Tartrate MG MG 00:00: dtime_a 10 MG 00 s_neede d} Zolpidem Zolpidem 2021-0 No 1{table QD Zolpidem Tartrate 10 Tartrate 10 8-31 t_at_be Tartrate MG MG 00:00: dtime_a 10 MG 00 s_neede d} Zolpidem Zolpidem 2022-0 No 1{table QD Zolpidem Tartrate 10 Tartrate 10 8-31 t_at_be Tartrate MG MG 00:00: dtime_a 10 MG 00 s_neede d} Zolpidem Zolpidem 2-0 No 1{table QD Zolpidem Tartrate 10 Tartrate 10 8-31 t_at_be Tartrate MG MG 00:00: dtime_a 10 MG 00 s_neede d} Zolpidem Zolpidem 2-0 No 1{table QD Zolpidem Tartrate 10 Tartrate 10 8-31 t_at_be Tartrate MG MG 00:00: dtime_a 10 MG 00 s_neede d} Zolpidem Zolpidem 2-0 No Zolpidem Tartrate 10 Tartrate 10 8-04 Tartrate MG MG 00:00: 10 MG 00 Zolpidem Zolpidem 2-0 No Zolpidem Tartrate 10 Tartrate 10 8-04 Tartrate MG MG 00:00: 10 MG 00 Zolpidem Zolpidem 2-0 No Zolpidem Tartrate 10 Tartrate 10 6-07 Tartrate MG MG 00:00: 10 MG 00 Zolpidem Zolpidem 2-0 No Zolpidem Tartrate 10 Tartrate 10 6-07 Tartrate MG MG 00:00: 10 MG 00 Zolpidem Zolpidem 2-0 No Zolpidem Tartrate 10 Tartrate 10 6-07 Tartrate MG MG 00:00: 10 MG 00 Zolpidem Zolpidem 2-0 No Zolpidem Tartrate 10 Tartrate 10 6-07 Tartrate MG MG 00:00: 10 MG 00 Zolpidem Zolpidem 2-0 No Zolpidem Tartrate 10 Tartrate 10 6-07 Tartrate MG MG 00:00: 10 MG 00 Zolpidem Zolpidem 2-0 No Zolpidem Tartrate 10 Tartrate 10 5-04 Tartrate MG MG 00:00: 10 MG 00 Zolpidem Zolpidem 2-0 No QD Zolpidem Tartrate 10 Tartrate 10 2-03 Tartrate MG MG 00:00: 10 MG 00 Zolpidem Zolpidem 2022-0 No QD Zolpidem Tartrate 10 Tartrate 10 2-03 Tartrate MG MG 00:00: 10 MG 00 Zolpidem Zolpidem 2021-0 No QD Zolpidem Tartrate 10 Tartrate 10 2-03 Tartrate MG MG 00:00: 10 MG 00 Zolpidem Zolpidem 2021-0 No QD Zolpidem Tartrate 10 Tartrate 10 2-03 Tartrate MG MG 00:00: 10 MG 00 Zolpidem Zolpidem 2021-0 No QD Zolpidem Tartrate 10 Tartrate 10 2-03 Tartrate MG MG 00:00: 10 MG 00 Zolpidem Zolpidem 2021-0 No QD Zolpidem Tartrate 10 Tartrate 10 2-03 Tartrate MG MG 00:00: 10 MG 00 Azithromyci Azithromyci 2021-0 2021- No QD Azithromyc n 250 MG n 250 MG 05-27 in 250 MG 00:00: 00:00 00 :00 Zolpidem Zolpidem 2020-1 No Zolpidem Tartrate 10 Tartrate 10 1-05 Tartrate MG MG 00:00: 10 MG 00 Zolpidem Zolpidem 2020-1 No Zolpidem Tartrate 10 Tartrate 10 1-05 Tartrate MG MG 00:00: 10 MG 00 Zolpidem Zolpidem 2020-1 No Zolpidem Tartrate 10 Tartrate 10 1-05 Tartrate MG MG 00:00: 10 MG 00 Zolpidem Zolpidem 2020-1 No QD Zolpidem Tartrate 10 Tartrate 10 1-04 Tartrate MG MG 00:00: 10 MG 00 Montelukast Montelukast 2020- No 1{table QD Montelukas Sodium 10 Sodium 10 0-29 t} t Sodium MG MG 00:00: 10 MG 00 Montelukast Montelukast 2020- No 1{table QD Montelukas Sodium 10 Sodium 10 0-29 t} t Sodium MG MG 00:00: 10 MG 00 Montelukast Montelukast 2020-1 No 1{table QD Montelukas Sodium 10 Sodium 10 0-29 t} t Sodium MG MG 00:00: 10 MG 00 Montelukast Montelukast 2020-05 No 1{table QD Montelukas Sodium 10 Sodium 10 0-29 t} t Sodium MG MG 00:00: 10 MG 00 Montelukast Montelukast 2020-05 No 1{table QD Montelukas Sodium 10 Sodium 10 0-29 t} t Sodium MG MG 00:00: 10 MG 00 Montelukast Montelukast 2020-05 No 1{table QD Montelukas Sodium 10 Sodium 10 0-29 t} t Sodium MG MG 00:00: 10 MG 00 Montelukast Montelukast 2020-05 No 1{table QD Montelukas Sodium 10 Sodium 10 0-29 t} t Sodium MG MG 00:00: 10 MG 00 Montelukast Montelukast 2020-05 No 1{table QD Montelukas Sodium 10 Sodium 10 0-29 t} t Sodium MG MG 00:00: 10 MG 00 Montelukast Montelukast 2020-05 No 1{table QD Montelukas Sodium 10 Sodium 10 0-29 t} t Sodium MG MG 00:00: 10 MG 00 Montelukast Montelukast 2020-05 No 1{table QD Montelukas Sodium 10 Sodium 10 0-29 t} t Sodium MG MG 00:00: 10 MG 00 Montelukast Montelukast 2020-05 No 1{table QD Montelukas Sodium 10 Sodium 10 0-29 t} t Sodium MG MG 00:00: 10 MG 00 Montelukast Montelukast 2020-05 No 1{table QD Montelukas Sodium 10 Sodium 10 0-29 t} t Sodium MG MG 00:00: 10 MG 00 Zolpidem Zolpidem 2020-05 No Zolpidem Tartrate 10 Tartrate 10 0-05 Tartrate MG MG 00:00: 10 MG 00 Zolpidem Zolpidem 2020-05 No Zolpidem Tartrate 10 Tartrate 10 0-05 Tartrate MG MG 00:00: 10 MG 00 Zolpidem Zolpidem 2020-05 No Zolpidem Tartrate 10 Tartrate 10 0-05 Tartrate MG MG 00:00: 10 MG 00 Pantoprazol Pantoprazol 2019- Yes [place] 1 tablet Common e Sodium e Sodium 7-09 Spirit 00:00: - [facility] 00 [facility] Oseltamivir Oseltamivir 2020-0 Yes Na [place] 1 capsule Common Phosphate Phosphate 2-25 Spiri t 00:00: - [facility] 00 [facility] Oseltamivir Oseltamivir 2020-0 No 1{capsu BID Oseltamivi Phosphate Phosphate 2-25 le} r 75 MG 75 MG 00:00: Phosphate 00 75 MG Oseltamivir Oseltamivir 2020-0 No 1{capsu BID Oseltamivi Phosphate Phosphate 2-25 le} r 75 MG 75 MG 00:00: Phosphate 00 75 MG Oseltamivir Oseltamivir 2020-0 No 1{capsu BID Oseltamivi Phosphate Phosphate 2-25 le} r 75 MG 75 MG 00:00: Phosphate 00 75 MG Oseltamivir Oseltamivir 2020-0 No 1{capsu BID Oseltamivi Phosphate Phosphate 2-25 le} r 75 MG 75 MG 00:00: Phosphate 00 75 MG Oseltamivir Oseltamivir 2020-0 No 1{capsu BID Oseltamivi Phosphate Phosphate 2-25 le} r 75 MG 75 MG 00:00: Phosphate 00 75 MG Oseltamivir Oseltamivir 2020-0 No 1{capsu BID Oseltamivi Phosphate Phosphate 2-25 le} r 75 MG 75 MG 00:00: Phosphate 00 75 MG Oseltamivir Oseltamivir 2020-0 No 1{capsu BID Oseltamivi Phosphate Phosphate 2-25 le} r 75 MG 75 MG 00:00: Phosphate 00 75 MG Oseltamivir Oseltamivir 2020-0 No 1{capsu BID Oseltamivi Phosphate Phosphate 2-25 le} r 75 MG 75 MG 00:00: Phosphate 00 75 MG Oseltamivir Oseltamivir 2020-0 No 1{capsu BID Oseltamivi Phosphate Phosphate 2-25 le} r 75 MG 75 MG 00:00: Phosphate 00 75 MG Oseltamivir Oseltamivir 2020-0 No 1{capsu BID Oseltamivi Phosphate Phosphate 2-25 le} r 75 MG 75 MG 00:00: Phosphate 00 75 MG Oseltamivir Oseltamivir 2020-0 No 1{capsu BID Oseltamivi Phosphate Phosphate 2-25 le} r 75 MG 75 MG 00:00: Phosphate 00 75 MG Oseltamivir Oseltamivir 2020-0 No 1{capsu BID Oseltamivi Phosphate Phosphate 2-25 le} r 75 MG 75 MG 00:00: Phosphate 00 75 MG Oseltamivir Oseltamivir 2020-0 No 1{capsu BID Oseltamivi Phosphate Phosphate 2-25 le} r 75 MG 75 MG 00:00: Phosphate 00 75 MG Oseltamivir Oseltamivir 2020-0 No 1{capsu BID Oseltamivi Phosphate Phosphate 2-25 le} r 75 MG 75 MG 00:00: Phosphate 00 75 MG Oseltamivir Oseltamivir 2020-0 No 1{capsu BID Oseltamivi Phosphate Phosphate 2-25 le} r 75 MG 75 MG 00:00: Phosphate 00 75 MG Oseltamivir Oseltamivir 2020-0 No 1{capsu BID Oseltamivi Phosphate Phosphate 2-25 le} r 75 MG 75 MG 00:00: Phosphate 00 75 MG Oseltamivir Oseltamivir 2020-0 No 1{capsu BID Oseltamivi Phosphate Phosphate 2-25 le} r 75 MG 75 MG 00:00: Phosphate 00 75 MG Oseltamivir Oseltamivir 2020-0 No 1{capsu BID Oseltamivi Phosphate Phosphate 2-25 le} r 75 MG 75 MG 00:00: Phosphate 00 75 MG Oseltamivir Oseltamivir 2020-0 No 1{capsu BID Oseltamivi Phosphate Phosphate 2-25 le} r 75 MG 75 MG 00:00: Phosphate 00 75 MG Oseltamivir Oseltamivir 2020-0 No 1{capsu BID Oseltamivi Phosphate Phosphate 2-25 le} r 75 MG 75 MG 00:00: Phosphate 00 75 MG Oseltamivir Oseltamivir 2020-0 No 1{capsu BID Oseltamivi Phosphate Phosphate 2-25 le} r 75 MG 75 MG 00:00: Phosphate 00 75 MG Oseltamivir Oseltamivir 2020-0 No 1{capsu BID Oseltamivi Phosphate Phosphate 2-25 le} r 75 MG 75 MG 00:00: Phosphate 00 75 MG Synthroid Synthroid No Synthroid 112 MCG 112 MCG 112 MCG Restasis Restasis No 1{drop_ BID Restasis 0.05 % 0.05 % into_af 0.05 % fected_ eye} Ranitidine Ranitidine No Ranitidine HCl 150 MG HCl 150 MG HCl 150 MG Tylenol Tylenol No 1{table Tylenol Arthritis Arthritis t} Arthritis Pain 650 MG Pain 650 MG Pain 650 MG Pantoprazol Pantoprazol No 1{table QD Pantoprazo e Sodium 40 e Sodium 40 t} le Sodium MG MG 40 MG Famotidine Famotidine No Famotidine 40 MG 40 MG 40 MG Singulair Singulair No 1{table QD Singulair 10 MG 10 MG t} 10 MG Ambien 10 Ambien 10 No 1{table QD Ambien 10 MG MG t_at_be MG dtime_a s_neede d} Atorvastati Atorvastati No Atorvastat n Calcium n Calcium in Calcium 10 MG 10 MG 10 MG Anastrozole Anastrozole No 1{table QD Anastrozol 1 MG 1 MG t} e 1 MG Levothyroxi Levothyroxi No Levothyrox ne Sodium ne Sodium ine Sodium 100 MCG 100 MCG 100 MCG Pantoprazol Pantoprazol No Pantoprazo e Sodium 40 e Sodium 40 le Sodium MG MG 40 MG Synthroid Synthroid No QD Synthroid 100 MCG 100 MCG 100 MCG Ibandronate Ibandronate No Ibandronat Sodium 150 Sodium 150 e Sodium MG MG 150 MG predniSONE predniSONE No QD predniSONE 10 MG 10 MG 10 MG Claritin 10 Claritin 10 No 1{table QD Claritin MG MG t} 10 MG Albuterol Albuterol No 2{puffs Albuterol Sulfate HFA Sulfate HFA } Sulfate 108 (90 108 (90 HFA 108 Base) Base) (90 Base) MCG/ACT MCG/ACT MCG/ACT PARoxetine PARoxetine No PARoxetine HCl 10 MG HCl 10 MG HCl 10 MG Ambien 10 Ambien 10 No Ambien 10 Omeprazole Omeprazole No 1{capsu QD Omeprazole 40 MG 40 MG le} 40 MG Albuterol Albuterol No 2{puffs QID Albuterol Sulfate 108 Sulfate 108 _as_nee Sulfate (90 Base) (90 Base) ded} 108 (90 MCG/ACT MCG/ACT Base) MCG/ACT Paxil 10 MG Paxil 10 MG No 1{table QD Paxil 10 t_in_th MG e_morni ng} Ventolin Ventolin No 2{puffs Ventolin HFA 108 (90 HFA 108 (90 _as_nee HFA 108 Base) Base) ded} (90 Base) MCG/ACT MCG/ACT MCG/ACT Lipitor 10 Lipitor 10 No 1{table QD Lipitor 10 MG MG t} MG Coreg 6.25 Coreg 6.25 No Coreg 6.25 MG MG MG Flonase 50 Flonase 50 No 1{spray QD Flonase 50 MCG/ACT MCG/ACT _in_eac MCG/ACT h_nostr il} Vitamin D-3 Vitamin D-3 No Vitamin 5000 UNIT 5000 UNIT D-3 5000 UNIT Benzonatate Benzonatate No TID Benzonatat 200 MG 200 MG e 200 MG Xarelto 20 Xarelto 20 No Xarelto 20 MG MG MG Cholestyram Cholestyram No 1{packe BID Cholestyra ine 4 GM ine 4 GM t_mixed mine 4 GM _with_w ater_or _non-ca rbonate d_drink } Carvedilol Carvedilol No Carvedilol 6.25 MG 6.25 MG 6.25 MG Ultram 50 Ultram 50 No 1{table QID Ultram 50 MG MG t_as_ne MG eded} Montelukast Montelukast No Montelukas Sodium 10 Sodium 10 t Sodium MG MG 10 MG Synthroid Synthroid No Synthroid 112 MCG 112 MCG 112 MCG Restasis Restasis No 1{drop_ BID Restasis 0.05 % 0.05 % into_af 0.05 % fected_ eye} Ranitidine Ranitidine No Ranitidine HCl 150 MG HCl 150 MG HCl 150 MG Singulair Singulair No 1{table QD Singulair 10 MG 10 MG t} 10 MG Ambien 10 Ambien 10 No 1{table QD Ambien 10 MG MG t_at_be MG dtime_a s_neede d} Ibandronate Ibandronate No Ibandronat Sodium 150 Sodium 150 e Sodium MG MG 150 MG Carvedilol Carvedilol No Carvedilol 6.25 MG 6.25 MG 6.25 MG Benzonatate Benzonatate No TID Benzonatat 200 MG 200 MG e 200 MG Xarelto 20 Xarelto 20 No Xarelto 20 MG MG MG Pantoprazol Pantoprazol No Pantoprazo e Sodium 40 e Sodium 40 le Sodium MG MG 40 MG Synthroid Synthroid No QD Synthroid 100 MCG 100 MCG 100 MCG Levothyroxi Levothyroxi No Levothyrox ne Sodium ne Sodium ine Sodium 100 MCG 100 MCG 100 MCG Tylenol Tylenol No 1{table Tylenol Arthritis Arthritis t} Arthritis Pain 650 MG Pain 650 MG Pain 650 MG Pantoprazol Pantoprazol No 1{table QD Pantoprazo e Sodium 40 e Sodium 40 t} le Sodium MG MG 40 MG Famotidine Famotidine No Famotidine 40 MG 40 MG 40 MG Albuterol Albuterol No 2{puffs Albuterol Sulfate HFA Sulfate HFA } Sulfate 108 (90 108 (90 HFA 108 Base) Base) (90 Base) MCG/ACT MCG/ACT MCG/ACT Claritin 10 Claritin 10 No 1{table QD Claritin MG MG t} 10 MG Anastrozole Anastrozole No 1{table QD Anastrozol 1 MG 1 MG t} e 1 MG PARoxetine PARoxetine No PARoxetine HCl 10 MG HCl 10 MG HCl 10 MG predniSONE predniSONE No QD predniSONE 10 MG 10 MG 10 MG Flonase 50 Flonase 50 No 1{spray QD Flonase 50 MCG/ACT MCG/ACT _in_eac MCG/ACT h_nostr il} Omeprazole Omeprazole No 1{capsu QD Omeprazole 40 MG 40 MG le} 40 MG Cholestyram Cholestyram No 1{packe BID Cholestyra ine 4 GM ine 4 GM t_mixed mine 4 GM _with_w ater_or _non-ca rbonate d_drink } Atorvastati Atorvastati No Atorvastat n Calcium n Calcium in Calcium 10 MG 10 MG 10 MG Ultram 50 Ultram 50 No 1{table QID Ultram 50 MG MG t_as_ne MG eded} Ventolin Ventolin No 2{puffs Ventolin HFA 108 (90 HFA 108 (90 _as_nee HFA 108 Base) Base) ded} (90 Base) MCG/ACT MCG/ACT MCG/ACT Vitamin D-3 Vitamin D-3 No Vitamin 5000 UNIT 5000 UNIT D-3 5000 UNIT Lipitor 10 Lipitor 10 No 1{table QD Lipitor 10 MG MG t} MG Ambien 10 Ambien 10 No Ambien 10 Coreg 6.25 Coreg 6.25 No Coreg 6.25 MG MG MG Montelukast Montelukast No Montelukas Sodium 10 Sodium 10 t Sodium MG MG 10 MG Albuterol Albuterol No 2{puffs QID Albuterol Sulfate 108 Sulfate 108 _as_nee Sulfate (90 Base) (90 Base) ded} 108 (90 MCG/ACT MCG/ACT Base) MCG/ACT Paxil 10 MG Paxil 10 MG No 1{table QD Paxil 10 t_in_th MG e_morni ng} Synthroid Synthroid No Synthroid 112 MCG 112 MCG 112 MCG Restasis Restasis No 1{drop_ BID Restasis 0.05 % 0.05 % into_af 0.05 % fected_ eye} Ranitidine Ranitidine No Ranitidine HCl 150 MG HCl 150 MG HCl 150 MG Singulair Singulair No 1{table QD Singulair 10 MG 10 MG t} 10 MG Ambien 10 Ambien 10 No 1{table QD Ambien 10 MG MG t_at_be MG dtime_a s_neede d} Ibandronate Ibandronate No Ibandronat Sodium 150 Sodium 150 e Sodium MG MG 150 MG Carvedilol Carvedilol No Carvedilol 6.25 MG 6.25 MG 6.25 MG Benzonatate Benzonatate No TID Benzonatat 200 MG 200 MG e 200 MG Xarelto 20 Xarelto 20 No Xarelto 20 MG MG MG Pantoprazol Pantoprazol No Pantoprazo e Sodium 40 e Sodium 40 le Sodium MG MG 40 MG Synthroid Synthroid No QD Synthroid 100 MCG 100 MCG 100 MCG Levothyroxi Levothyroxi No Levothyrox ne Sodium ne Sodium ine Sodium 100 MCG 100 MCG 100 MCG Tylenol Tylenol No 1{table Tylenol Arthritis Arthritis t} Arthritis Pain 650 MG Pain 650 MG Pain 650 MG Pantoprazol Pantoprazol No 1{table QD Pantoprazo e Sodium 40 e Sodium 40 t} le Sodium MG MG 40 MG Famotidine Famotidine No Famotidine 40 MG 40 MG 40 MG Albuterol Albuterol No 2{puffs Albuterol Sulfate HFA Sulfate HFA } Sulfate 108 (90 108 (90 HFA 108 Base) Base) (90 Base) MCG/ACT MCG/ACT MCG/ACT Claritin 10 Claritin 10 No 1{table QD Claritin MG MG t} 10 MG Anastrozole Anastrozole No 1{table QD Anastrozol 1 MG 1 MG t} e 1 MG PARoxetine PARoxetine No PARoxetine HCl 10 MG HCl 10 MG HCl 10 MG predniSONE predniSONE No QD predniSONE 10 MG 10 MG 10 MG Flonase 50 Flonase 50 No 1{spray QD Flonase 50 MCG/ACT MCG/ACT _in_eac MCG/ACT h_nostr il} Omeprazole Omeprazole No 1{capsu QD Omeprazole 40 MG 40 MG le} 40 MG Cholestyram Cholestyram No 1{packe BID Cholestyra ine 4 GM ine 4 GM t_mixed mine 4 GM _with_w ater_or _non-ca rbonate d_drink } Atorvastati Atorvastati No Atorvastat n Calcium n Calcium in Calcium 10 MG 10 MG 10 MG Ultram 50 Ultram 50 No 1{table QID Ultram 50 MG MG t_as_ne MG eded} Ventolin Ventolin No 2{puffs Ventolin HFA 108 (90 HFA 108 (90 _as_nee HFA 108 Base) Base) ded} (90 Base) MCG/ACT MCG/ACT MCG/ACT Vitamin D-3 Vitamin D-3 No Vitamin 5000 UNIT 5000 UNIT D-3 5000 UNIT Lipitor 10 Lipitor 10 No 1{table QD Lipitor 10 MG MG t} MG Ambien 10 Ambien 10 No Ambien 10 Coreg 6.25 Coreg 6.25 No Coreg 6.25 MG MG MG Montelukast Montelukast No Montelukas Sodium 10 Sodium 10 t Sodium MG MG 10 MG Albuterol Albuterol No 2{puffs QID Albuterol Sulfate 108 Sulfate 108 _as_nee Sulfate (90 Base) (90 Base) ded} 108 (90 MCG/ACT MCG/ACT Base) MCG/ACT Paxil 10 MG Paxil 10 MG No 1{table QD Paxil 10 t_in_th MG e_morni ng} Synthroid Synthroid No Synthroid 112 MCG 112 MCG 112 MCG Restasis Restasis No 1{drop_ BID Restasis 0.05 % 0.05 % into_af 0.05 % fected_ eye} Ranitidine Ranitidine No Ranitidine HCl 150 MG HCl 150 MG HCl 150 MG Singulair Singulair No 1{table QD Singulair 10 MG 10 MG t} 10 MG Benzonatate Benzonatate No TID Benzonatat 200 MG 200 MG e 200 MG Xarelto 20 Xarelto 20 No Xarelto 20 MG MG MG PARoxetine PARoxetine No 1{table QD PARoxetine HCl 10 MG HCl 10 MG t_in_th HCl 10 MG e_morni ng} Lipitor 10 Lipitor 10 No 1{table QD Lipitor 10 MG MG t} MG Ambien 10 Ambien 10 No Ambien 10 Pantoprazol Pantoprazol No Pantoprazo e Sodium 40 e Sodium 40 le Sodium MG MG 40 MG Pantoprazol Pantoprazol No 1{table QD Pantoprazo e Sodium 40 e Sodium 40 t} le Sodium MG MG 40 MG Famotidine Famotidine No Famotidine 40 MG 40 MG 40 MG Tylenol Tylenol No 1{table Tylenol Arthritis Arthritis t} Arthritis Pain 650 MG Pain 650 MG Pain 650 MG Ambien 10 Ambien 10 No 1{table QD Ambien 10 MG MG t_at_be MG dtime_a s_neede d} Ibandronate Ibandronate No Ibandronat Sodium 150 Sodium 150 e Sodium MG MG 150 MG Anastrozole Anastrozole No 1{table QD Anastrozol 1 MG 1 MG t} e 1 MG Levothyroxi Levothyroxi No Levothyrox ne Sodium ne Sodium ine Sodium 100 MCG 100 MCG 100 MCG Synthroid Synthroid No QD Synthroid 100 MCG 100 MCG 100 MCG Albuterol Albuterol No 2{puffs Albuterol Sulfate HFA Sulfate HFA } Sulfate 108 (90 108 (90 HFA 108 Base) Base) (90 Base) MCG/ACT MCG/ACT MCG/ACT Flonase 50 Flonase 50 No 1{spray QD Flonase 50 MCG/ACT MCG/ACT _in_eac MCG/ACT h_nostr il} Omeprazole Omeprazole No 1{capsu QD Omeprazole 40 MG 40 MG le} 40 MG Cholestyram Cholestyram No 1{packe BID Cholestyra ine 4 GM ine 4 GM t_mixed mine 4 GM _with_w ater_or _non-ca rbonate d_drink } Montelukast Montelukast No Montelukas Sodium 10 Sodium 10 t Sodium MG MG 10 MG Vitamin D-3 Vitamin D-3 No Vitamin 5000 UNIT 5000 UNIT D-3 5000 UNIT Ultram 50 Ultram 50 No 1{table QID Ultram 50 MG MG t_as_ne MG eded} Ventolin Ventolin No 2{puffs Ventolin HFA 108 (90 HFA 108 (90 _as_nee HFA 108 Base) Base) ded} (90 Base) MCG/ACT MCG/ACT MCG/ACT Claritin 10 Claritin 10 No 1{table QD Claritin MG MG t} 10 MG Atorvastati Atorvastati No Atorvastat n Calcium n Calcium in Calcium 10 MG 10 MG 10 MG predniSONE predniSONE No QD predniSONE 10 MG 10 MG 10 MG Coreg 6.25 Coreg 6.25 No Coreg 6.25 MG MG MG Carvedilol Carvedilol No Carvedilol 6.25 MG 6.25 MG 6.25 MG Albuterol Albuterol No 2{puffs QID Albuterol Sulfate 108 Sulfate 108 _as_nee Sulfate (90 Base) (90 Base) ded} 108 (90 MCG/ACT MCG/ACT Base) MCG/ACT Synthroid Synthroid No Synthroid 112 MCG 112 MCG 112 MCG Restasis Restasis No 1{drop_ BID Restasis 0.05 % 0.05 % into_af 0.05 % fected_ eye} Ranitidine Ranitidine No Ranitidine HCl 150 MG HCl 150 MG HCl 150 MG Atorvastati Atorvastati No 1{table QD Atorvastat n Calcium n Calcium t} in Calcium 10 MG 10 MG 10 MG Carvedilol Carvedilol No 1{table BID Carvedilol 6.25 MG 6.25 MG t_with_ 6.25 MG food} Verzenio Verzenio No 1{table BID Verzenio 100 MG 100 MG t} 100 MG Synthroid Synthroid No QD Synthroid 112 MCG 112 MCG 112 MCG Famotidine Famotidine No 1{table QD Famotidine 40 MG 40 MG t_at_be 40 MG dtime_a s_neede d} Loperamide Loperamide No QID Loperamide HCl 2 MG HCl 2 MG HCl 2 MG Granisetron Granisetron No BID Granisetro HCl 1 MG HCl 1 MG n HCl 1 MG Ibandronate Ibandronate No Ibandronat Sodium 150 Sodium 150 e Sodium MG MG 150 MG Vitamin D-3 Vitamin D-3 No 1{table QD Vitamin 125 MCG 125 MCG t} D-3 125 (5000 UT) (5000 UT) MCG (5000 UT) Lipitor 10 Lipitor 10 No 1{table QD Lipitor 10 MG MG t} MG Ultram 50 Ultram 50 No 1{table QID Ultram 50 MG MG t_as_ne MG eded} PARoxetine PARoxetine No 1{table QD PARoxetine HCl 10 MG HCl 10 MG t_in_th HCl 10 MG e_morni ng} Flonase 50 Flonase 50 No 1{spray QD Flonase 50 MCG/ACT MCG/ACT _in_eac MCG/ACT h_nostr il} Calcium 600 Calcium 600 No 1{table BID Calcium MG MG t_with_ 600 MG meals} Anastrozole Anastrozole No 1{table QD Anastrozol 1 MG 1 MG t} e 1 MG ZyrTEC ZyrTEC No 1{table QD ZyrTEC Allergy 10 Allergy 10 t} Allergy 10 MG MG MG Montelukast Montelukast No 1{table QD Montelukas Sodium 10 Sodium 10 t} t Sodium MG MG 10 MG Tylenol Tylenol No 1{table Tylenol Arthritis Arthritis t} Arthritis Pain 650 MG Pain 650 MG Pain 650 MG Xarelto 20 Xarelto 20 No 1{table QD Xarelto 20 MG MG t} MG Synthroid Synthroid No QD Synthroid 112 MCG 112 MCG 112 MCG Coreg 6.25 Coreg 6.25 No Coreg 6.25 MG MG MG Atorvastati Atorvastati No 1{table QD Atorvastat n Calcium n Calcium t} in Calcium 10 MG 10 MG 10 MG Carvedilol Carvedilol No 1{table BID Carvedilol 6.25 MG 6.25 MG t_with_ 6.25 MG food} Verzenio Verzenio No 1{table BID Verzenio 100 MG 100 MG t} 100 MG Synthroid Synthroid No QD Synthroid 112 MCG 112 MCG 112 MCG Famotidine Famotidine No 1{table QD Famotidine 40 MG 40 MG t_at_be 40 MG dtime_a s_neede d} Loperamide Loperamide No QID Loperamide HCl 2 MG HCl 2 MG HCl 2 MG Granisetron Granisetron No BID Granisetro HCl 1 MG HCl 1 MG n HCl 1 MG Ibandronate Ibandronate No Ibandronat Sodium 150 Sodium 150 e Sodium MG MG 150 MG Vitamin D-3 Vitamin D-3 No 1{table QD Vitamin 125 MCG 125 MCG t} D-3 125 (5000 UT) (5000 UT) MCG (5000 UT) Lipitor 10 Lipitor 10 No 1{table QD Lipitor 10 MG MG t} MG Ultram 50 Ultram 50 No 1{table QID Ultram 50 MG MG t_as_ne MG eded} PARoxetine PARoxetine No 1{table QD PARoxetine HCl 10 MG HCl 10 MG t_in_th HCl 10 MG e_morni ng} Flonase 50 Flonase 50 No 1{spray QD Flonase 50 MCG/ACT MCG/ACT _in_eac MCG/ACT h_nostr il} Calcium 600 Calcium 600 No 1{table BID Calcium MG MG t_with_ 600 MG meals} Anastrozole Anastrozole No 1{table QD Anastrozol 1 MG 1 MG t} e 1 MG ZyrTEC ZyrTEC No 1{table QD ZyrTEC Allergy 10 Allergy 10 t} Allergy 10 MG MG MG Montelukast Montelukast No 1{table QD Montelukas Sodium 10 Sodium 10 t} t Sodium MG MG 10 MG Tylenol Tylenol No 1{table Tylenol Arthritis Arthritis t} Arthritis Pain 650 MG Pain 650 MG Pain 650 MG Xarelto 20 Xarelto 20 No 1{table QD Xarelto 20 MG MG t} MG Synthroid Synthroid No QD Synthroid 112 MCG 112 MCG 112 MCG Coreg 6.25 Coreg 6.25 No Coreg 6.25 MG MG MG Coreg 6.25 Coreg 6.25 No Coreg 6.25 MG MG MG Flonase 50 Flonase 50 No 1{spray QD Flonase 50 MCG/ACT MCG/ACT _in_eac MCG/ACT h_nostr il} Synthroid Synthroid No QD Synthroid 112 MCG 112 MCG 112 MCG Atorvastati Atorvastati No 1{table QD Atorvastat n Calcium n Calcium t} in Calcium 10 MG 10 MG 10 MG Synthroid Synthroid No QD Synthroid 112 MCG 112 MCG 112 MCG Verzenio Verzenio No 1{table BID Verzenio 100 MG 100 MG t} 100 MG Loperamide Loperamide No QID Loperamide HCl 2 MG HCl 2 MG HCl 2 MG Carvedilol Carvedilol No Carvedilol 6.25 MG 6.25 MG 6.25 MG Ibandronate Ibandronate No Ibandronat Sodium 150 Sodium 150 e Sodium MG MG 150 MG Vitamin D-3 Vitamin D-3 No 1{table QD Vitamin 125 MCG 125 MCG t} D-3 125 (5000 UT) (5000 UT) MCG (5000 UT) Anastrozole Anastrozole No 1{table QD Anastrozol 1 MG 1 MG t} e 1 MG Famotidine Famotidine No 1{table QD Famotidine 40 MG 40 MG t_at_be 40 MG dtime_a s_neede d} Lipitor 10 Lipitor 10 No 1{table QD Lipitor 10 MG MG t} MG Calcium 600 Calcium 600 No 1{table BID Calcium MG MG t_with_ 600 MG meals} PARoxetine PARoxetine No 1{table QD PARoxetine HCl 10 MG HCl 10 MG t_in_th HCl 10 MG e_morni ng} Ultram 50 Ultram 50 No 1{table QID Ultram 50 MG MG t_as_ne MG eded} Granisetron Granisetron No BID Granisetro HCl 1 MG HCl 1 MG n HCl 1 MG Tylenol Tylenol No 1{table Tylenol Arthritis Arthritis t} Arthritis Pain 650 MG Pain 650 MG Pain 650 MG Xarelto 20 Xarelto 20 No 1{table QD Xarelto 20 MG MG t} MG Montelukast Montelukast No Montelukas Sodium 10 Sodium 10 t Sodium MG MG 10 MG ZyrTEC ZyrTEC No 1{table QD ZyrTEC Allergy 10 Allergy 10 t} Allergy 10 MG MG MG Coreg 6.25 Coreg 6.25 No Coreg 6.25 MG MG MG Flonase 50 Flonase 50 No 1{spray QD Flonase 50 MCG/ACT MCG/ACT _in_eac MCG/ACT h_nostr il} Synthroid Synthroid No QD Synthroid 112 MCG 112 MCG 112 MCG Atorvastati Atorvastati No 1{table QD Atorvastat n Calcium n Calcium t} in Calcium 10 MG 10 MG 10 MG PARoxetine PARoxetine No 1{table QD PARoxetine HCl 10 MG HCl 10 MG t_in_th HCl 10 MG e_morni ng} Verzenio Verzenio No 1{table BID Verzenio 100 MG 100 MG t} 100 MG Loperamide Loperamide No QID Loperamide HCl 2 MG HCl 2 MG HCl 2 MG Carvedilol Carvedilol No Carvedilol 6.25 MG 6.25 MG 6.25 MG Ibandronate Ibandronate No Ibandronat Sodium 150 Sodium 150 e Sodium MG MG 150 MG Vitamin D-3 Vitamin D-3 No 1{table QD Vitamin 125 MCG 125 MCG t} D-3 125 (5000 UT) (5000 UT) MCG (5000 UT) Anastrozole Anastrozole No 1{table QD Anastrozol 1 MG 1 MG t} e 1 MG Synthroid Synthroid No QD Synthroid 112 MCG 112 MCG 112 MCG Lipitor 10 Lipitor 10 No 1{table QD Lipitor 10 MG MG t} MG Ultram 50 Ultram 50 No 1{table QID Ultram 50 MG MG t_as_ne MG eded} Calcium 600 Calcium 600 No 1{table BID Calcium MG MG t_with_ 600 MG meals} Montelukast Montelukast No Montelukas Sodium 10 Sodium 10 t Sodium MG MG 10 MG Granisetron Granisetron No BID Granisetro HCl 1 MG HCl 1 MG n HCl 1 MG Tylenol Tylenol No 1{table Tylenol Arthritis Arthritis t} Arthritis Pain 650 MG Pain 650 MG Pain 650 MG Xarelto 20 Xarelto 20 No 1{table QD Xarelto 20 MG MG t} MG Famotidine Famotidine No 1{table QD Famotidine 40 MG 40 MG t_at_be 40 MG dtime_a s_neede d} ZyrTEC ZyrTEC No 1{table QD ZyrTEC Allergy 10 Allergy 10 t} Allergy 10 MG MG MG Coreg 6.25 Coreg 6.25 No Coreg 6.25 MG MG MG Flonase 50 Flonase 50 No 1{spray QD Flonase 50 MCG/ACT MCG/ACT _in_eac MCG/ACT h_nostr il} Synthroid Synthroid No QD Synthroid 112 MCG 112 MCG 112 MCG Atorvastati Atorvastati No 1{table QD Atorvastat n Calcium n Calcium t} in Calcium 10 MG 10 MG 10 MG PARoxetine PARoxetine No 1{table QD PARoxetine HCl 10 MG HCl 10 MG t_in_th HCl 10 MG e_morni ng} Verzenio Verzenio No 1{table BID Verzenio 100 MG 100 MG t} 100 MG Loperamide Loperamide No QID Loperamide HCl 2 MG HCl 2 MG HCl 2 MG Carvedilol Carvedilol No Carvedilol 6.25 MG 6.25 MG 6.25 MG Ibandronate Ibandronate No Ibandronat Sodium 150 Sodium 150 e Sodium MG MG 150 MG Vitamin D-3 Vitamin D-3 No 1{table QD Vitamin 125 MCG 125 MCG t} D-3 125 (5000 UT) (5000 UT) MCG (5000 UT) Anastrozole Anastrozole No 1{table QD Anastrozol 1 MG 1 MG t} e 1 MG Synthroid Synthroid No QD Synthroid 112 MCG 112 MCG 112 MCG Lipitor 10 Lipitor 10 No 1{table QD Lipitor 10 MG MG t} MG Ultram 50 Ultram 50 No 1{table QID Ultram 50 MG MG t_as_ne MG eded} Calcium 600 Calcium 600 No 1{table BID Calcium MG MG t_with_ 600 MG meals} Montelukast Montelukast No Montelukas Sodium 10 Sodium 10 t Sodium MG MG 10 MG Granisetron Granisetron No BID Granisetro HCl 1 MG HCl 1 MG n HCl 1 MG Tylenol Tylenol No 1{table Tylenol Arthritis Arthritis t} Arthritis Pain 650 MG Pain 650 MG Pain 650 MG Xarelto 20 Xarelto 20 No 1{table QD Xarelto 20 MG MG t} MG Famotidine Famotidine No 1{table QD Famotidine 40 MG 40 MG t_at_be 40 MG dtime_a s_neede d} ZyrTEC ZyrTEC No 1{table QD ZyrTEC Allergy 10 Allergy 10 t} Allergy 10 MG MG MG Famotidine Famotidine Yes [facility] [place] 1 tablet Common [facility] Restasis Restasis Yes [facility] [place] 1 drop Co mmon into Spirit affected - [facility] eye [facility] Ranitidine Ranitidine Yes [facility] [place] 1 tablet Common HCl HCl [facility] Coreg Coreg Yes [place] as Common directed [facility] Claritin Claritin Yes [place] 1 tablet Common [facility] Tylenol Tylenol Yes [facility] [place] 1 tablet Co mmon Arthritis Arthritis Spiri t Pain Pain - [facility] Cholestyram Cholestyram Yes [facility] [place] 1 packet Common ine ine mixed with Spirit water or - [facility] non-carbon [facility] Synthroid Synthroid Yes [facility] [place] TAKE ONE Common TABLET BY Spirit MOUTH - [facility] AN [facility]MPTY [facility] Vitamin D-3 Vitamin D-3 Yes [facility] [place] as Common directed [facility] Ultram Ultram Yes [facility] [place] 1 tablet Comm on as needed [facility] Ambien Ambien Yes [facility] [place] TAKE ONE Comm on TABLET BY Spirit MOUTH AT - CHI BEDTIME St NEEDED [facility] Synthroid Synthroid Yes [place] 1 tablet Common on an [facility] empty - [facility] stomach in [facility] Lipitor Lipitor Yes [facility] [place] 1 tablet Co mmon [facility] Xarelto Xarelto Yes [facility] [place] 1 tablet Co mmon with food [facility] Paxil Paxil Yes [facility] [place] 1 tablet Common in the [facility] morning [facility] Albuterol Albuterol Yes [facility] [place] 2 puffs as Common Sulfate Sulfate needed [facility] Omeprazole Omeprazole Yes [facility] [place] 1 capsule Common [facility] Flonase Flonase Yes [facility] [place] 1 spray in Common each [facility] nostril [facility] Ventolin Ventolin Yes [facility] [place] 2 puffs as Common HFA HFA needed [facility] Synthroid Synthroid Yes [place] TAKE ONE Common TABLET BY [facility] MOUTH - [facility] EVERY [facility] MORNING ON [facility] AN EMPTY [facility] STOMACH Center Coreg 6.25 Coreg 6.25 No Coreg 6.25 MG MG MG Flonase 50 Flonase 50 No 1{spray QD Flonase 50 MCG/ACT MCG/ACT _in_eac MCG/ACT h_nostr il} Synthroid Synthroid No QD Synthroid 112 MCG 112 MCG 112 MCG Atorvastati Atorvastati No 1{table QD Atorvastat n Calcium n Calcium t} in Calcium 10 MG 10 MG 10 MG PARoxetine PARoxetine No 1{table QD PARoxetine HCl 10 MG HCl 10 MG t_in_th HCl 10 MG e_morni ng} Verzenio Verzenio No 1{table BID Verzenio 100 MG 100 MG t} 100 MG Loperamide Loperamide No QID Loperamide HCl 2 MG HCl 2 MG HCl 2 MG Carvedilol Carvedilol No Carvedilol 6.25 MG 6.25 MG 6.25 MG Ibandronate Ibandronate No Ibandronat Sodium 150 Sodium 150 e Sodium MG MG 150 MG Vitamin D-3 Vitamin D-3 No 1{table QD Vitamin 125 MCG 125 MCG t} D-3 125 (5000 UT) (5000 UT) MCG (5000 UT) Anastrozole Anastrozole No 1{table QD Anastrozol 1 MG 1 MG t} e 1 MG Synthroid Synthroid No QD Synthroid 112 MCG 112 MCG 112 MCG Lipitor 10 Lipitor 10 No 1{table QD Lipitor 10 MG MG t} MG Ultram 50 Ultram 50 No 1{table QID Ultram 50 MG MG t_as_ne MG eded} Calcium 600 Calcium 600 No 1{table BID Calcium MG MG t_with_ 600 MG meals} Montelukast Montelukast No Montelukas Sodium 10 Sodium 10 t Sodium MG MG 10 MG Granisetron Granisetron No BID Granisetro HCl 1 MG HCl 1 MG n HCl 1 MG Tylenol Tylenol No 1{table Tylenol Arthritis Arthritis t} Arthritis Pain 650 MG Pain 650 MG Pain 650 MG Xarelto 20 Xarelto 20 No 1{table QD Xarelto 20 MG MG t} MG Famotidine Famotidine No 1{table QD Famotidine 40 MG 40 MG t_at_be 40 MG dtime_a s_neede d} ZyrTEC ZyrTEC No 1{table QD ZyrTEC Allergy 10 Allergy 10 t} Allergy 10 MG MG MG Coreg 6.25 Coreg 6.25 No Coreg 6.25 MG MG MG Flonase 50 Flonase 50 No 1{spray QD Flonase 50 MCG/ACT MCG/ACT _in_eac MCG/ACT h_nostr il} Synthroid Synthroid No QD Synthroid 112 MCG 112 MCG 112 MCG Atorvastati Atorvastati No 1{table QD Atorvastat n Calcium n Calcium t} in Calcium 10 MG 10 MG 10 MG Montelukast Montelukast No Montelukas Sodium 10 Sodium 10 t Sodium MG MG 10 MG Verzenio Verzenio No 1{table BID Verzenio 100 MG 100 MG t} 100 MG Loperamide Loperamide No QID Loperamide HCl 2 MG HCl 2 MG HCl 2 MG Carvedilol Carvedilol No Carvedilol 6.25 MG 6.25 MG 6.25 MG Ibandronate Ibandronate No Ibandronat Sodium 150 Sodium 150 e Sodium MG MG 150 MG Vitamin D-3 Vitamin D-3 No 1{table QD Vitamin 125 MCG 125 MCG t} D-3 125 (5000 UT) (5000 UT) MCG (5000 UT) Anastrozole Anastrozole No 1{table QD Anastrozol 1 MG 1 MG t} e 1 MG PARoxetine PARoxetine No 1{table QD PARoxetine HCl 10 MG HCl 10 MG t_in_th HCl 10 MG e_morni ng} Lipitor 10 Lipitor 10 No 1{table QD Lipitor 10 MG MG t} MG Ultram 50 Ultram 50 No 1{table QID Ultram 50 MG MG t_as_ne MG eded} Calcium 600 Calcium 600 No 1{table BID Calcium MG MG t_with_ 600 MG meals} Synthroid Synthroid No QD Synthroid 112 MCG 112 MCG 112 MCG Granisetron Granisetron No BID Granisetro HCl 1 MG HCl 1 MG n HCl 1 MG Tylenol Tylenol No 1{table Tylenol Arthritis Arthritis t} Arthritis Pain 650 MG Pain 650 MG Pain 650 MG Xarelto 20 Xarelto 20 No 1{table QD Xarelto 20 MG MG t} MG Famotidine Famotidine No 1{table QD Famotidine 40 MG 40 MG t_at_be 40 MG dtime_a s_neede d} ZyrTEC ZyrTEC No 1{table QD ZyrTEC Allergy 10 Allergy 10 t} Allergy 10 MG MG MG Ambien 10 Ambien 10 No Ambien 10 Coreg 6.25 Coreg 6.25 No Coreg 6.25 MG MG MG Flonase 50 Flonase 50 No 1{spray QD Flonase 50 MCG/ACT MCG/ACT _in_eac MCG/ACT h_nostr il} Synthroid Synthroid No QD Synthroid 112 MCG 112 MCG 112 MCG Atorvastati Atorvastati No 1{table QD Atorvastat n Calcium n Calcium t} in Calcium 10 MG 10 MG 10 MG Montelukast Montelukast No Montelukas Sodium 10 Sodium 10 t Sodium MG MG 10 MG Verzenio Verzenio No 1{table BID Verzenio 100 MG 100 MG t} 100 MG Ibandronate Ibandronate No Ibandronat Sodium 150 Sodium 150 e Sodium MG MG 150 MG Loperamide Loperamide No QID Loperamide HCl 2 MG HCl 2 MG HCl 2 MG Carvedilol Carvedilol No Carvedilol 6.25 MG 6.25 MG 6.25 MG Vitamin D-3 Vitamin D-3 No 1{table QD Vitamin 125 MCG 125 MCG t} D-3 125 (5000 UT) (5000 UT) MCG (5000 UT) Anastrozole Anastrozole No 1{table QD Anastrozol 1 MG 1 MG t} e 1 MG PARoxetine PARoxetine No 1{table QD PARoxetine HCl 10 MG HCl 10 MG t_in_th HCl 10 MG e_morni ng} Lipitor 10 Lipitor 10 No 1{table QD Lipitor 10 MG MG t} MG Ultram 50 Ultram 50 No 1{table QID Ultram 50 MG MG t_as_ne MG eded} Calcium 600 Calcium 600 No 1{table BID Calcium MG MG t_with_ 600 MG meals} Flonase 50 Flonase 50 No 1{spray QD Flonase 50 MCG/ACT MCG/ACT _in_eac MCG/ACT h_nostr il} Synthroid Synthroid No QD Synthroid 112 MCG 112 MCG 112 MCG Granisetron Granisetron No BID Granisetro HCl 1 MG HCl 1 MG n HCl 1 MG Tylenol Tylenol No 1{table Tylenol Arthritis Arthritis t} Arthritis Pain 650 MG Pain 650 MG Pain 650 MG Xarelto 20 Xarelto 20 No 1{table QD Xarelto 20 MG MG t} MG Famotidine Famotidine No 1{table QD Famotidine 40 MG 40 MG t_at_be 40 MG dtime_a s_neede d} ZyrTEC ZyrTEC No 1{table QD ZyrTEC Allergy 10 Allergy 10 t} Allergy 10 MG MG MG Albuterol Albuterol No 2{puffs QID Albuterol Sulfate 108 Sulfate 108 _as_nee Sulfate (90 Base) (90 Base) ded} 108 (90 MCG/ACT MCG/ACT Base) MCG/ACT Paxil 10 MG Paxil 10 MG No 1{table QD Paxil 10 t_in_th MG e_morni ng} Ventolin Ventolin No 2{puffs Ventolin HFA 108 (90 HFA 108 (90 _as_nee HFA 108 Base) Base) ded} (90 Base) MCG/ACT MCG/ACT MCG/ACT Cholestyram Cholestyram No 1{packe BID Cholestyra ine 4 GM ine 4 GM t_mixed mine 4 GM _with_w ater_or _non-ca rbonate d_drink } Omeprazole Omeprazole No 1{capsu QD Omeprazole 40 MG 40 MG le} 40 MG Singulair Singulair No 1{table QD Singulair 10 MG 10 MG t} 10 MG Restasis Restasis No 1{drop_ BID Restasis 0.05 % 0.05 % into_af 0.05 % fected_ eye} Pantoprazol Pantoprazol No 1{table QD Pantoprazo e Sodium 40 e Sodium 40 t} le Sodium MG MG 40 MG Synthroid Synthroid No Synthroid 100 MCG 100 MCG 100 MCG Claritin 10 Claritin 10 No 1{table QD Claritin MG MG t} 10 MG Xarelto 20 Xarelto 20 No Xarelto 20 MG MG MG Vitamin D-3 Vitamin D-3 No Vitamin 5000 UNIT 5000 UNIT D-3 5000 UNIT Lipitor 10 Lipitor 10 No Lipitor 10 MG MG MG Tylenol Tylenol No 1{table Tylenol Arthritis Arthritis t} Arthritis Pain 650 MG Pain 650 MG Pain 650 MG Ultram 50 Ultram 50 No 1{table QID Ultram 50 MG MG t_as_ne MG eded} Paxil 10 MG Paxil 10 MG No 1{table QD Paxil 10 t_in_th MG e_morni ng} Synthroid Synthroid No Synthroid 112 MCG 112 MCG 112 MCG Ranitidine Ranitidine No Ranitidine HCl 150 MG HCl 150 MG HCl 150 MG Coreg 6.25 Coreg 6.25 No Coreg 6.25 MG MG MG Famotidine Famotidine No Famotidine 40 MG 40 MG 40 MG Vitamin D-3 Vitamin D-3 No Vitamin 5000 UNIT 5000 UNIT D-3 5000 UNIT Famotidine Famotidine No Famotidine 40 MG 40 MG 40 MG Xarelto 20 Xarelto 20 No Xarelto 20 MG MG MG Ambien 10 Ambien 10 No Ambien 10 Claritin 10 Claritin 10 No 1{table QD Claritin MG MG t} 10 MG Lipitor 10 Lipitor 10 No Lipitor 10 MG MG MG Cholestyram Cholestyram No 1{packe BID Cholestyra ine 4 GM ine 4 GM t_mixed mine 4 GM _with_w ater_or _non-ca rbonate d_drink } Pantoprazol Pantoprazol No 1{table QD Pantoprazo e Sodium 40 e Sodium 40 t} le Sodium MG MG 40 MG Paxil 10 MG Paxil 10 MG No 1{table QD Paxil 10 t_in_th MG e_morni ng} Omeprazole Omeprazole No 1{capsu QD Omeprazole 40 MG 40 MG le} 40 MG Paxil 10 MG Paxil 10 MG No 1{table QD Paxil 10 t_in_th MG e_morni ng} Ventolin Ventolin No 2{puffs Ventolin HFA 108 (90 HFA 108 (90 _as_nee HFA 108 Base) Base) ded} (90 Base) MCG/ACT MCG/ACT MCG/ACT Synthroid Synthroid No Synthroid 100 MCG 100 MCG 100 MCG Tylenol Tylenol No 1{table Tylenol Arthritis Arthritis t} Arthritis Pain 650 MG Pain 650 MG Pain 650 MG Singulair Singulair No 1{table QD Singulair 10 MG 10 MG t} 10 MG Albuterol Albuterol No 2{puffs QID Albuterol Sulfate 108 Sulfate 108 _as_nee Sulfate (90 Base) (90 Base) ded} 108 (90 MCG/ACT MCG/ACT Base) MCG/ACT Coreg 6.25 Coreg 6.25 No Coreg 6.25 MG MG MG Flonase 50 Flonase 50 No 1{spray QD Flonase 50 MCG/ACT MCG/ACT _in_eac MCG/ACT h_nostr il} Synthroid Synthroid No Synthroid 112 MCG 112 MCG 112 MCG Ranitidine Ranitidine No Ranitidine HCl 150 MG HCl 150 MG HCl 150 MG Restasis Restasis No 1{drop_ BID Restasis 0.05 % 0.05 % into_af 0.05 % fected_ eye} Ultram 50 Ultram 50 No 1{table QID Ultram 50 MG MG t_as_ne MG eded} Vitamin D-3 Vitamin D-3 No Vitamin 5000 UNIT 5000 UNIT D-3 5000 UNIT Famotidine Famotidine No Famotidine 40 MG 40 MG 40 MG Xarelto 20 Xarelto 20 No Xarelto 20 MG MG MG Ambien 10 Ambien 10 No Ambien 10 Claritin 10 Claritin 10 No 1{table QD Claritin MG MG t} 10 MG Lipitor 10 Lipitor 10 No Lipitor 10 MG MG MG Cholestyram Cholestyram No 1{packe BID Cholestyra ine 4 GM ine 4 GM t_mixed mine 4 GM _with_w ater_or _non-ca rbonate d_drink } Pantoprazol Pantoprazol No 1{table QD Pantoprazo e Sodium 40 e Sodium 40 t} le Sodium MG MG 40 MG Paxil 10 MG Paxil 10 MG No 1{table QD Paxil 10 t_in_th MG e_morni ng} Omeprazole Omeprazole No 1{capsu QD Omeprazole 40 MG 40 MG le} 40 MG Paxil 10 MG Paxil 10 MG No 1{table QD Paxil 10 t_in_th MG e_morni ng} Ventolin Ventolin No 2{puffs Ventolin HFA 108 (90 HFA 108 (90 _as_nee HFA 108 Base) Base) ded} (90 Base) MCG/ACT MCG/ACT MCG/ACT Synthroid Synthroid No Synthroid 100 MCG 100 MCG 100 MCG Tylenol Tylenol No 1{table Tylenol Arthritis Arthritis t} Arthritis Pain 650 MG Pain 650 MG Pain 650 MG Singulair Singulair No 1{table QD Singulair 10 MG 10 MG t} 10 MG Albuterol Albuterol No 2{puffs QID Albuterol Sulfate 108 Sulfate 108 _as_nee Sulfate (90 Base) (90 Base) ded} 108 (90 MCG/ACT MCG/ACT Base) MCG/ACT Coreg 6.25 Coreg 6.25 No Coreg 6.25 MG MG MG Flonase 50 Flonase 50 No 1{spray QD Flonase 50 MCG/ACT MCG/ACT _in_eac MCG/ACT h_nostr il} Synthroid Synthroid No Synthroid 112 MCG 112 MCG 112 MCG Ranitidine Ranitidine No Ranitidine HCl 150 MG HCl 150 MG HCl 150 MG Restasis Restasis No 1{drop_ BID Restasis 0.05 % 0.05 % into_af 0.05 % fected_ eye} Ultram 50 Ultram 50 No 1{table QID Ultram 50 MG MG t_as_ne MG eded} Vitamin D-3 Vitamin D-3 No Vitamin 5000 UNIT 5000 UNIT D-3 5000 UNIT Cholestyram Cholestyram No 1{packe BID Cholestyra ine 4 GM ine 4 GM t_mixed mine 4 GM _with_w ater_or _non-ca rbonate d_drink } Xarelto 20 Xarelto 20 No Xarelto 20 MG MG MG Famotidine Famotidine No Famotidine 40 MG 40 MG 40 MG Claritin 10 Claritin 10 No 1{table QD Claritin MG MG t} 10 MG Lipitor 10 Lipitor 10 No Lipitor 10 MG MG MG Tylenol Tylenol No 1{table Tylenol Arthritis Arthritis t} Arthritis Pain 650 MG Pain 650 MG Pain 650 MG Pantoprazol Pantoprazol No 1{table QD Pantoprazo e Sodium 40 e Sodium 40 t} le Sodium MG MG 40 MG Paxil 10 MG Paxil 10 MG No 1{table QD Paxil 10 t_in_th MG e_morni ng} Omeprazole Omeprazole No 1{capsu QD Omeprazole 40 MG 40 MG le} 40 MG Paxil 10 MG Paxil 10 MG No 1{table QD Paxil 10 t_in_th MG e_morni ng} Singulair Singulair No 1{table QD Singulair 10 MG 10 MG t} 10 MG Ventolin Ventolin No 2{puffs Ventolin HFA 108 (90 HFA 108 (90 _as_nee HFA 108 Base) Base) ded} (90 Base) MCG/ACT MCG/ACT MCG/ACT Synthroid Synthroid No Synthroid 100 MCG 100 MCG 100 MCG Ambien 10 Ambien 10 No Ambien 10 Albuterol Albuterol No 2{puffs QID Albuterol Sulfate 108 Sulfate 108 _as_nee Sulfate (90 Base) (90 Base) ded} 108 (90 MCG/ACT MCG/ACT Base) MCG/ACT Coreg 6.25 Coreg 6.25 No Coreg 6.25 MG MG MG Flonase 50 Flonase 50 No 1{spray QD Flonase 50 MCG/ACT MCG/ACT _in_eac MCG/ACT h_nostr il} Synthroid Synthroid No Synthroid 112 MCG 112 MCG 112 MCG Ranitidine Ranitidine No Ranitidine HCl 150 MG HCl 150 MG HCl 150 MG Restasis Restasis No 1{drop_ BID Restasis 0.05 % 0.05 % into_af 0.05 % fected_ eye} Ultram 50 Ultram 50 No 1{table QID Ultram 50 MG MG t_as_ne MG eded} Lipitor 10 Lipitor 10 No Lipitor 10 MG MG MG Famotidine Famotidine No Famotidine 40 MG 40 MG 40 MG Vitamin D-3 Vitamin D-3 No Vitamin 5000 UNIT 5000 UNIT D-3 5000 UNIT Levothyroxi Levothyroxi No Levothyrox ne Sodium ne Sodium ine Sodium 100 MCG 100 MCG 100 MCG Tylenol Tylenol No 1{table Tylenol Arthritis Arthritis t} Arthritis Pain 650 MG Pain 650 MG Pain 650 MG Claritin 10 Claritin 10 No 1{table QD Claritin MG MG t} 10 MG Cholestyram Cholestyram No 1{packe BID Cholestyra ine 4 GM ine 4 GM t_mixed mine 4 GM _with_w ater_or _non-ca rbonate d_drink } Paxil 10 MG Paxil 10 MG No 1{table QD Paxil 10 t_in_th MG e_morni ng} Omeprazole Omeprazole No 1{capsu QD Omeprazole 40 MG 40 MG le} 40 MG Coreg 6.25 Coreg 6.25 No Coreg 6.25 MG MG MG Ambien 10 Ambien 10 No Ambien 10 Ventolin Ventolin No 2{puffs Ventolin HFA 108 (90 HFA 108 (90 _as_nee HFA 108 Base) Base) ded} (90 Base) MCG/ACT MCG/ACT MCG/ACT Pantoprazol Pantoprazol No 1{table QD Pantoprazo e Sodium 40 e Sodium 40 t} le Sodium MG MG 40 MG Singulair Singulair No 1{table QD Singulair 10 MG 10 MG t} 10 MG PARoxetine PARoxetine No PARoxetine HCl 10 MG HCl 10 MG HCl 10 MG Albuterol Albuterol No 2{puffs QID Albuterol Sulfate 108 Sulfate 108 _as_nee Sulfate (90 Base) (90 Base) ded} 108 (90 MCG/ACT MCG/ACT Base) MCG/ACT Xarelto 20 Xarelto 20 No Xarelto 20 MG MG MG Flonase 50 Flonase 50 No 1{spray QD Flonase 50 MCG/ACT MCG/ACT _in_eac MCG/ACT h_nostr il} Synthroid Synthroid No Synthroid 112 MCG 112 MCG 112 MCG Ranitidine Ranitidine No Ranitidine HCl 150 MG HCl 150 MG HCl 150 MG Restasis Restasis No 1{drop_ BID Restasis 0.05 % 0.05 % into_af 0.05 % fected_ eye} Ultram 50 Ultram 50 No 1{table QID Ultram 50 MG MG t_as_ne MG eded} Ambien 10 Ambien 10 No Ambien 10 Levothyroxi Levothyroxi No Levothyrox ne Sodium ne Sodium ine Sodium 100 MCG 100 MCG 100 MCG Cholestyram Cholestyram No 1{packe BID Cholestyra ine 4 GM ine 4 GM t_mixed mine 4 GM _with_w ater_or _non-ca rbonate d_drink } PARoxetine PARoxetine No PARoxetine HCl 10 MG HCl 10 MG HCl 10 MG Tylenol Tylenol No 1{table Tylenol Arthritis Arthritis t} Arthritis Pain 650 MG Pain 650 MG Pain 650 MG Benzonatate Benzonatate No TID Benzonatat 200 MG 200 MG e 200 MG Singulair Singulair No 1{table QD Singulair 10 MG 10 MG t} 10 MG Synthroid Synthroid No Synthroid 112 MCG 112 MCG 112 MCG Carvedilol Carvedilol No Carvedilol 6.25 MG 6.25 MG 6.25 MG Ranitidine Ranitidine No Ranitidine HCl 150 MG HCl 150 MG HCl 150 MG Ventolin Ventolin No 2{puffs Ventolin HFA 108 (90 HFA 108 (90 _as_nee HFA 108 Base) Base) ded} (90 Base) MCG/ACT MCG/ACT MCG/ACT Restasis Restasis No 1{drop_ BID Restasis 0.05 % 0.05 % into_af 0.05 % fected_ eye} Pantoprazol Pantoprazol No Pantoprazo e Sodium 40 e Sodium 40 le Sodium MG MG 40 MG Omeprazole Omeprazole No 1{capsu QD Omeprazole 40 MG 40 MG le} 40 MG Albuterol Albuterol No 2{puffs Albuterol Sulfate HFA Sulfate HFA } Sulfate 108 (90 108 (90 HFA 108 Base) Base) (90 Base) MCG/ACT MCG/ACT MCG/ACT Claritin 10 Claritin 10 No 1{table QD Claritin MG MG t} 10 MG Vitamin D-3 Vitamin D-3 No Vitamin 5000 UNIT 5000 UNIT D-3 5000 UNIT Albuterol Albuterol No 2{puffs QID Albuterol Sulfate 108 Sulfate 108 _as_nee Sulfate (90 Base) (90 Base) ded} 108 (90 MCG/ACT MCG/ACT Base) MCG/ACT predniSONE predniSONE No QD predniSONE 10 MG 10 MG 10 MG Famotidine Famotidine No Famotidine 40 MG 40 MG 40 MG Flonase 50 Flonase 50 No 1{spray QD Flonase 50 MCG/ACT MCG/ACT _in_eac MCG/ACT h_nostr il} Paxil 10 MG Paxil 10 MG No 1{table QD Paxil 10 t_in_th MG e_morni ng} Ultram 50 Ultram 50 No 1{table QID Ultram 50 MG MG t_as_ne MG eded} Xarelto 20 Xarelto 20 No Xarelto 20 MG MG MG Lipitor 10 Lipitor 10 No Lipitor 10 MG MG MG Ambien 10 Ambien 10 No Ambien 10 Levothyroxi Levothyroxi No Levothyrox ne Sodium ne Sodium ine Sodium 100 MCG 100 MCG 100 MCG Cholestyram Cholestyram No 1{packe BID Cholestyra ine 4 GM ine 4 GM t_mixed mine 4 GM _with_w ater_or _non-ca rbonate d_drink } PARoxetine PARoxetine No PARoxetine HCl 10 MG HCl 10 MG HCl 10 MG Tylenol Tylenol No 1{table Tylenol Arthritis Arthritis t} Arthritis Pain 650 MG Pain 650 MG Pain 650 MG Ranitidine Ranitidine No Ranitidine HCl 150 MG HCl 150 MG HCl 150 MG Singulair Singulair No 1{table QD Singulair 10 MG 10 MG t} 10 MG Benzonatate Benzonatate No TID Benzonatat 200 MG 200 MG e 200 MG Carvedilol Carvedilol No Carvedilol 6.25 MG 6.25 MG 6.25 MG Synthroid Synthroid No Synthroid 112 MCG 112 MCG 112 MCG Ventolin Ventolin No 2{puffs Ventolin HFA 108 (90 HFA 108 (90 _as_nee HFA 108 Base) Base) ded} (90 Base) MCG/ACT MCG/ACT MCG/ACT Restasis Restasis No 1{drop_ BID Restasis 0.05 % 0.05 % into_af 0.05 % fected_ eye} Pantoprazol Pantoprazol No Pantoprazo e Sodium 40 e Sodium 40 le Sodium MG MG 40 MG Omeprazole Omeprazole No 1{capsu QD Omeprazole 40 MG 40 MG le} 40 MG Albuterol Albuterol No 2{puffs Albuterol Sulfate HFA Sulfate HFA } Sulfate 108 (90 108 (90 HFA 108 Base) Base) (90 Base) MCG/ACT MCG/ACT MCG/ACT Claritin 10 Claritin 10 No 1{table QD Claritin MG MG t} 10 MG Vitamin D-3 Vitamin D-3 No Vitamin 5000 UNIT 5000 UNIT D-3 5000 UNIT Albuterol Albuterol No 2{puffs QID Albuterol Sulfate 108 Sulfate 108 _as_nee Sulfate (90 Base) (90 Base) ded} 108 (90 MCG/ACT MCG/ACT Base) MCG/ACT predniSONE predniSONE No QD predniSONE 10 MG 10 MG 10 MG Famotidine Famotidine No Famotidine 40 MG 40 MG 40 MG Flonase 50 Flonase 50 No 1{spray QD Flonase 50 MCG/ACT MCG/ACT _in_eac MCG/ACT h_nostr il} Paxil 10 MG Paxil 10 MG No 1{table QD Paxil 10 t_in_th MG e_morni ng} Ultram 50 Ultram 50 No 1{table QID Ultram 50 MG MG t_as_ne MG eded} Xarelto 20 Xarelto 20 No Xarelto 20 MG MG MG Lipitor 10 Lipitor 10 No Lipitor 10 MG MG MG Tylenol Tylenol No 1{table Tylenol Arthritis Arthritis t} Arthritis Pain 650 MG Pain 650 MG Pain 650 MG Ranitidine Ranitidine No Ranitidine HCl 150 MG HCl 150 MG HCl 150 MG Singulair Singulair No 1{table QD Singulair 10 MG 10 MG t} 10 MG Benzonatate Benzonatate No TID Benzonatat 200 MG 200 MG e 200 MG Claritin 10 Claritin 10 No 1{table QD Claritin MG MG t} 10 MG Carvedilol Carvedilol No Carvedilol 6.25 MG 6.25 MG 6.25 MG Synthroid Synthroid No Synthroid 112 MCG 112 MCG 112 MCG Pantoprazol Pantoprazol No Pantoprazo e Sodium 40 e Sodium 40 le Sodium MG MG 40 MG Atorvastati Atorvastati No Atorvastat n Calcium n Calcium in Calcium 10 MG 10 MG 10 MG Restasis Restasis No 1{drop_ BID Restasis 0.05 % 0.05 % into_af 0.05 % fected_ eye} Albuterol Albuterol No 2{puffs Albuterol Sulfate HFA Sulfate HFA } Sulfate 108 (90 108 (90 HFA 108 Base) Base) (90 Base) MCG/ACT MCG/ACT MCG/ACT Omeprazole Omeprazole No 1{capsu QD Omeprazole 40 MG 40 MG le} 40 MG Cholestyram Cholestyram No 1{packe BID Cholestyra ine 4 GM ine 4 GM t_mixed mine 4 GM _with_w ater_or _non-ca rbonate d_drink } PARoxetine PARoxetine No PARoxetine HCl 10 MG HCl 10 MG HCl 10 MG predniSONE predniSONE No QD predniSONE 10 MG 10 MG 10 MG Vitamin D-3 Vitamin D-3 No Vitamin 5000 UNIT 5000 UNIT D-3 5000 UNIT Levothyroxi Levothyroxi No Levothyrox ne Sodium ne Sodium ine Sodium 100 MCG 100 MCG 100 MCG Famotidine Famotidine No Famotidine 40 MG 40 MG 40 MG Ambien 10 Ambien 10 No Ambien 10 Xarelto 20 Xarelto 20 No Xarelto 20 MG MG MG Albuterol Albuterol No 2{puffs QID Albuterol Sulfate 108 Sulfate 108 _as_nee Sulfate (90 Base) (90 Base) ded} 108 (90 MCG/ACT MCG/ACT Base) MCG/ACT Flonase 50 Flonase 50 No 1{spray QD Flonase 50 MCG/ACT MCG/ACT _in_eac MCG/ACT h_nostr il} Ventolin Ventolin No 2{puffs Ventolin HFA 108 (90 HFA 108 (90 _as_nee HFA 108 Base) Base) ded} (90 Base) MCG/ACT MCG/ACT MCG/ACT Ultram 50 Ultram 50 No 1{table QID Ultram 50 MG MG t_as_ne MG eded} Paxil 10 MG Paxil 10 MG No 1{table QD Paxil 10 t_in_th MG e_morni ng} Tylenol Tylenol No 1{table Tylenol Arthritis Arthritis t} Arthritis Pain 650 MG Pain 650 MG Pain 650 MG Ranitidine Ranitidine No Ranitidine HCl 150 MG HCl 150 MG HCl 150 MG Singulair Singulair No 1{table QD Singulair 10 MG 10 MG t} 10 MG Benzonatate Benzonatate No TID Benzonatat 200 MG 200 MG e 200 MG Claritin 10 Claritin 10 No 1{table QD Claritin MG MG t} 10 MG Carvedilol Carvedilol No Carvedilol 6.25 MG 6.25 MG 6.25 MG Synthroid Synthroid No Synthroid 112 MCG 112 MCG 112 MCG Pantoprazol Pantoprazol No Pantoprazo e Sodium 40 e Sodium 40 le Sodium MG MG 40 MG Atorvastati Atorvastati No Atorvastat n Calcium n Calcium in Calcium 10 MG 10 MG 10 MG Restasis Restasis No 1{drop_ BID Restasis 0.05 % 0.05 % into_af 0.05 % fected_ eye} Albuterol Albuterol No 2{puffs Albuterol Sulfate HFA Sulfate HFA } Sulfate 108 (90 108 (90 HFA 108 Base) Base) (90 Base) MCG/ACT MCG/ACT MCG/ACT Omeprazole Omeprazole No 1{capsu QD Omeprazole 40 MG 40 MG le} 40 MG Cholestyram Cholestyram No 1{packe BID Cholestyra ine 4 GM ine 4 GM t_mixed mine 4 GM _with_w ater_or _non-ca rbonate d_drink } PARoxetine PARoxetine No PARoxetine HCl 10 MG HCl 10 MG HCl 10 MG predniSONE predniSONE No QD predniSONE 10 MG 10 MG 10 MG Vitamin D-3 Vitamin D-3 No Vitamin 5000 UNIT 5000 UNIT D-3 5000 UNIT Levothyroxi Levothyroxi No Levothyrox ne Sodium ne Sodium ine Sodium 100 MCG 100 MCG 100 MCG Famotidine Famotidine No Famotidine 40 MG 40 MG 40 MG Ambien 10 Ambien 10 No Ambien 10 Xarelto 20 Xarelto 20 No Xarelto 20 MG MG MG Albuterol Albuterol No 2{puffs QID Albuterol Sulfate 108 Sulfate 108 _as_nee Sulfate (90 Base) (90 Base) ded} 108 (90 MCG/ACT MCG/ACT Base) MCG/ACT Flonase 50 Flonase 50 No 1{spray QD Flonase 50 MCG/ACT MCG/ACT _in_eac MCG/ACT h_nostr il} Ventolin Ventolin No 2{puffs Ventolin HFA 108 (90 HFA 108 (90 _as_nee HFA 108 Base) Base) ded} (90 Base) MCG/ACT MCG/ACT MCG/ACT Ultram 50 Ultram 50 No 1{table QID Ultram 50 MG MG t_as_ne MG eded} Paxil 10 MG Paxil 10 MG No 1{table QD Paxil 10 t_in_th MG e_morni ng} Atorvastati Atorvastati No Atorvastat n Calcium n Calcium in Calcium 10 MG 10 MG 10 MG Famotidine Famotidine No Famotidine 40 MG 40 MG 40 MG Tylenol Tylenol No 1{table Tylenol Arthritis Arthritis t} Arthritis Pain 650 MG Pain 650 MG Pain 650 MG predniSONE predniSONE No QD predniSONE 10 MG 10 MG 10 MG Xarelto 20 Xarelto 20 No Xarelto 20 MG MG MG Pantoprazol Pantoprazol No Pantoprazo e Sodium 40 e Sodium 40 le Sodium MG MG 40 MG Ambien 10 Ambien 10 No Ambien 10 Albuterol Albuterol No 2{puffs Albuterol Sulfate HFA Sulfate HFA } Sulfate 108 (90 108 (90 HFA 108 Base) Base) (90 Base) MCG/ACT MCG/ACT MCG/ACT Singulair Singulair No 1{table QD Singulair 10 MG 10 MG t} 10 MG Claritin 10 Claritin 10 No 1{table QD Claritin MG MG t} 10 MG Flonase 50 Flonase 50 No 1{spray QD Flonase 50 MCG/ACT MCG/ACT _in_eac MCG/ACT h_nostr il} Omeprazole Omeprazole No 1{capsu QD Omeprazole 40 MG 40 MG le} 40 MG Paxil 10 MG Paxil 10 MG No 1{table QD Paxil 10 t_in_th MG e_morni ng} Benzonatate Benzonatate No TID Benzonatat 200 MG 200 MG e 200 MG Albuterol Albuterol No 2{puffs QID Albuterol Sulfate 108 Sulfate 108 _as_nee Sulfate (90 Base) (90 Base) ded} 108 (90 MCG/ACT MCG/ACT Base) MCG/ACT Ventolin Ventolin No 2{puffs Ventolin HFA 108 (90 HFA 108 (90 _as_nee HFA 108 Base) Base) ded} (90 Base) MCG/ACT MCG/ACT MCG/ACT Carvedilol Carvedilol No Carvedilol 6.25 MG 6.25 MG 6.25 MG Levothyroxi Levothyroxi No Levothyrox ne Sodium ne Sodium ine Sodium 100 MCG 100 MCG 100 MCG Synthroid Synthroid No Synthroid 112 MCG 112 MCG 112 MCG Ultram 50 Ultram 50 No 1{table QID Ultram 50 MG MG t_as_ne MG eded} Vitamin D-3 Vitamin D-3 No Vitamin 5000 UNIT 5000 UNIT D-3 5000 UNIT Ranitidine Ranitidine No Ranitidine HCl 150 MG HCl 150 MG HCl 150 MG PARoxetine PARoxetine No PARoxetine HCl 10 MG HCl 10 MG HCl 10 MG Cholestyram Cholestyram No 1{packe BID Cholestyra ine 4 GM ine 4 GM t_mixed mine 4 GM _with_w ater_or _non-ca rbonate d_drink } Restasis Restasis No 1{drop_ BID Restasis 0.05 % 0.05 % into_af 0.05 % fected_ eye} Atorvastati Atorvastati No Atorvastat n Calcium n Calcium in Calcium 10 MG 10 MG 10 MG Famotidine Famotidine No Famotidine 40 MG 40 MG 40 MG Tylenol Tylenol No 1{table Tylenol Arthritis Arthritis t} Arthritis Pain 650 MG Pain 650 MG Pain 650 MG predniSONE predniSONE No QD predniSONE 10 MG 10 MG 10 MG Xarelto 20 Xarelto 20 No Xarelto 20 MG MG MG Pantoprazol Pantoprazol No Pantoprazo e Sodium 40 e Sodium 40 le Sodium MG MG 40 MG Ambien 10 Ambien 10 No Ambien 10 Albuterol Albuterol No 2{puffs Albuterol Sulfate HFA Sulfate HFA } Sulfate 108 (90 108 (90 HFA 108 Base) Base) (90 Base) MCG/ACT MCG/ACT MCG/ACT Singulair Singulair No 1{table QD Singulair 10 MG 10 MG t} 10 MG Claritin 10 Claritin 10 No 1{table QD Claritin MG MG t} 10 MG Flonase 50 Flonase 50 No 1{spray QD Flonase 50 MCG/ACT MCG/ACT _in_eac MCG/ACT h_nostr il} Omeprazole Omeprazole No 1{capsu QD Omeprazole 40 MG 40 MG le} 40 MG Paxil 10 MG Paxil 10 MG No 1{table QD Paxil 10 t_in_th MG e_morni ng} Benzonatate Benzonatate No TID Benzonatat 200 MG 200 MG e 200 MG Albuterol Albuterol No 2{puffs QID Albuterol Sulfate 108 Sulfate 108 _as_nee Sulfate (90 Base) (90 Base) ded} 108 (90 MCG/ACT MCG/ACT Base) MCG/ACT Ventolin Ventolin No 2{puffs Ventolin HFA 108 (90 HFA 108 (90 _as_nee HFA 108 Base) Base) ded} (90 Base) MCG/ACT MCG/ACT MCG/ACT Carvedilol Carvedilol No Carvedilol 6.25 MG 6.25 MG 6.25 MG Levothyroxi Levothyroxi No Levothyrox ne Sodium ne Sodium ine Sodium 100 MCG 100 MCG 100 MCG Synthroid Synthroid No Synthroid 112 MCG 112 MCG 112 MCG Ultram 50 Ultram 50 No 1{table QID Ultram 50 MG MG t_as_ne MG eded} Vitamin D-3 Vitamin D-3 No Vitamin 5000 UNIT 5000 UNIT D-3 5000 UNIT Ranitidine Ranitidine No Ranitidine HCl 150 MG HCl 150 MG HCl 150 MG PARoxetine PARoxetine No PARoxetine HCl 10 MG HCl 10 MG HCl 10 MG Cholestyram Cholestyram No 1{packe BID Cholestyra ine 4 GM ine 4 GM t_mixed mine 4 GM _with_w ater_or _non-ca rbonate d_drink } Restasis Restasis No 1{drop_ BID Restasis 0.05 % 0.05 % into_af 0.05 % fected_ eye} Atorvastati Atorvastati No Atorvastat n Calcium n Calcium in Calcium 10 MG 10 MG 10 MG Famotidine Famotidine No Famotidine 40 MG 40 MG 40 MG Tylenol Tylenol No 1{table Tylenol Arthritis Arthritis t} Arthritis Pain 650 MG Pain 650 MG Pain 650 MG predniSONE predniSONE No QD predniSONE 10 MG 10 MG 10 MG Xarelto 20 Xarelto 20 No Xarelto 20 MG MG MG Pantoprazol Pantoprazol No Pantoprazo e Sodium 40 e Sodium 40 le Sodium MG MG 40 MG Ambien 10 Ambien 10 No Ambien 10 Albuterol Albuterol No 2{puffs Albuterol Sulfate HFA Sulfate HFA } Sulfate 108 (90 108 (90 HFA 108 Base) Base) (90 Base) MCG/ACT MCG/ACT MCG/ACT Singulair Singulair No 1{table QD Singulair 10 MG 10 MG t} 10 MG Claritin 10 Claritin 10 No 1{table QD Claritin MG MG t} 10 MG Flonase 50 Flonase 50 No 1{spray QD Flonase 50 MCG/ACT MCG/ACT _in_eac MCG/ACT h_nostr il} Omeprazole Omeprazole No 1{capsu QD Omeprazole 40 MG 40 MG le} 40 MG Paxil 10 MG Paxil 10 MG No 1{table QD Paxil 10 t_in_th MG e_morni ng} Benzonatate Benzonatate No TID Benzonatat 200 MG 200 MG e 200 MG Albuterol Albuterol No 2{puffs QID Albuterol Sulfate 108 Sulfate 108 _as_nee Sulfate (90 Base) (90 Base) ded} 108 (90 MCG/ACT MCG/ACT Base) MCG/ACT Ventolin Ventolin No 2{puffs Ventolin HFA 108 (90 HFA 108 (90 _as_nee HFA 108 Base) Base) ded} (90 Base) MCG/ACT MCG/ACT MCG/ACT Carvedilol Carvedilol No Carvedilol 6.25 MG 6.25 MG 6.25 MG Levothyroxi Levothyroxi No Levothyrox ne Sodium ne Sodium ine Sodium 100 MCG 100 MCG 100 MCG Synthroid Synthroid No Synthroid 112 MCG 112 MCG 112 MCG Ultram 50 Ultram 50 No 1{table QID Ultram 50 MG MG t_as_ne MG eded} Vitamin D-3 Vitamin D-3 No Vitamin 5000 UNIT 5000 UNIT D-3 5000 UNIT Ranitidine Ranitidine No Ranitidine HCl 150 MG HCl 150 MG HCl 150 MG PARoxetine PARoxetine No PARoxetine HCl 10 MG HCl 10 MG HCl 10 MG Cholestyram Cholestyram No 1{packe BID Cholestyra ine 4 GM ine 4 GM t_mixed mine 4 GM _with_w ater_or _non-ca rbonate d_drink } Restasis Restasis No 1{drop_ BID Restasis 0.05 % 0.05 % into_af 0.05 % fected_ eye} Atorvastati Atorvastati No Atorvastat n Calcium n Calcium in Calcium 10 MG 10 MG 10 MG Famotidine Famotidine No Famotidine 40 MG 40 MG 40 MG Tylenol Tylenol No 1{table Tylenol Arthritis Arthritis t} Arthritis Pain 650 MG Pain 650 MG Pain 650 MG predniSONE predniSONE No QD predniSONE 10 MG 10 MG 10 MG Xarelto 20 Xarelto 20 No Xarelto 20 MG MG MG Pantoprazol Pantoprazol No Pantoprazo e Sodium 40 e Sodium 40 le Sodium MG MG 40 MG Ambien 10 Ambien 10 No Ambien 10 Albuterol Albuterol No 2{puffs Albuterol Sulfate HFA Sulfate HFA } Sulfate 108 (90 108 (90 HFA 108 Base) Base) (90 Base) MCG/ACT MCG/ACT MCG/ACT Singulair Singulair No 1{table QD Singulair 10 MG 10 MG t} 10 MG Claritin 10 Claritin 10 No 1{table QD Claritin MG MG t} 10 MG Flonase 50 Flonase 50 No 1{spray QD Flonase 50 MCG/ACT MCG/ACT _in_eac MCG/ACT h_nostr il} Omeprazole Omeprazole No 1{capsu QD Omeprazole 40 MG 40 MG le} 40 MG Paxil 10 MG Paxil 10 MG No 1{table QD Paxil 10 t_in_th MG e_morni ng} Benzonatate Benzonatate No TID Benzonatat 200 MG 200 MG e 200 MG Albuterol Albuterol No 2{puffs QID Albuterol Sulfate 108 Sulfate 108 _as_nee Sulfate (90 Base) (90 Base) ded} 108 (90 MCG/ACT MCG/ACT Base) MCG/ACT Ventolin Ventolin No 2{puffs Ventolin HFA 108 (90 HFA 108 (90 _as_nee HFA 108 Base) Base) ded} (90 Base) MCG/ACT MCG/ACT MCG/ACT Carvedilol Carvedilol No Carvedilol 6.25 MG 6.25 MG 6.25 MG Levothyroxi Levothyroxi No Levothyrox ne Sodium ne Sodium ine Sodium 100 MCG 100 MCG 100 MCG Synthroid Synthroid No Synthroid 112 MCG 112 MCG 112 MCG Ultram 50 Ultram 50 No 1{table QID Ultram 50 MG MG t_as_ne MG eded} Vitamin D-3 Vitamin D-3 No Vitamin 5000 UNIT 5000 UNIT D-3 5000 UNIT Ranitidine Ranitidine No Ranitidine HCl 150 MG HCl 150 MG HCl 150 MG PARoxetine PARoxetine No PARoxetine HCl 10 MG HCl 10 MG HCl 10 MG Cholestyram Cholestyram No 1{packe BID Cholestyra ine 4 GM ine 4 GM t_mixed mine 4 GM _with_w ater_or _non-ca rbonate d_drink } Restasis Restasis No 1{drop_ BID Restasis 0.05 % 0.05 % into_af 0.05 % fected_ eye} PARoxetine PARoxetine No PARoxetine HCl 10 MG HCl 10 MG HCl 10 MG Ventolin Ventolin No 2{puffs Ventolin HFA 108 (90 HFA 108 (90 _as_nee HFA 108 Base) Base) ded} (90 Base) MCG/ACT MCG/ACT MCG/ACT Cholestyram Cholestyram No 1{packe BID Cholestyra ine 4 GM ine 4 GM t_mixed mine 4 GM _with_w ater_or _non-ca rbonate d_drink } predniSONE predniSONE No QD predniSONE 10 MG 10 MG 10 MG Synthroid Synthroid No Synthroid 112 MCG 112 MCG 112 MCG Restasis Restasis No 1{drop_ BID Restasis 0.05 % 0.05 % into_af 0.05 % fected_ eye} Lipitor 10 Lipitor 10 No 1{table QD Lipitor 10 MG MG t} MG Ultram 50 Ultram 50 No 1{table QID Ultram 50 MG MG t_as_ne MG eded} Ranitidine Ranitidine No Ranitidine HCl 150 MG HCl 150 MG HCl 150 MG Xarelto 20 Xarelto 20 No Xarelto 20 MG MG MG Albuterol Albuterol No 2{puffs QID Albuterol Sulfate 108 Sulfate 108 _as_nee Sulfate (90 Base) (90 Base) ded} 108 (90 MCG/ACT MCG/ACT Base) MCG/ACT Ibandronate Ibandronate No Ibandronat Sodium 150 Sodium 150 e Sodium MG MG 150 MG Ambien 10 Ambien 10 No 1{table QD Ambien 10 MG MG t_at_be MG dtime_a s_neede d} Flonase 50 Flonase 50 No 1{spray QD Flonase 50 MCG/ACT MCG/ACT _in_eac MCG/ACT h_nostr il} Coreg 6.25 Coreg 6.25 No Coreg 6.25 MG MG MG Tylenol Tylenol No 1{table Tylenol Arthritis Arthritis t} Arthritis Pain 650 MG Pain 650 MG Pain 650 MG Montelukast Montelukast No Montelukas Sodium 10 Sodium 10 t Sodium MG MG 10 MG Pantoprazol Pantoprazol No 1{table QD Pantoprazo e Sodium 40 e Sodium 40 t} le Sodium MG MG 40 MG Famotidine Famotidine No Famotidine 40 MG 40 MG 40 MG Carvedilol Carvedilol No Carvedilol 6.25 MG 6.25 MG 6.25 MG Ambien 10 Ambien 10 No Ambien 10 Synthroid Synthroid No QD Synthroid 100 MCG 100 MCG 100 MCG Omeprazole Omeprazole No 1{capsu QD Omeprazole 40 MG 40 MG le} 40 MG Paxil 10 MG Paxil 10 MG No 1{table QD Paxil 10 t_in_th MG e_morni ng} Vitamin D-3 Vitamin D-3 No Vitamin 5000 UNIT 5000 UNIT D-3 5000 UNIT Atorvastati Atorvastati No Atorvastat n Calcium n Calcium in Calcium 10 MG 10 MG 10 MG Singulair Singulair No 1{table QD Singulair 10 MG 10 MG t} 10 MG Claritin 10 Claritin 10 No 1{table QD Claritin MG MG t} 10 MG Albuterol Albuterol No 2{puffs Albuterol Sulfate HFA Sulfate HFA } Sulfate 108 (90 108 (90 HFA 108 Base) Base) (90 Base) MCG/ACT MCG/ACT MCG/ACT Levothyroxi Levothyroxi No Levothyrox ne Sodium ne Sodium ine Sodium 100 MCG 100 MCG 100 MCG Pantoprazol Pantoprazol No Pantoprazo e Sodium 40 e Sodium 40 le Sodium MG MG 40 MG Benzonatate Benzonatate No TID Benzonatat 200 MG 200 MG e 200 MG Lipitor 10 Lipitor 10 No 1{table QD Lipitor 10 MG MG t} MG Ultram 50 Ultram 50 No 1{table QID Ultram 50 MG MG t_as_ne MG eded} Cholestyram Cholestyram No 1{packe BID Cholestyra ine 4 GM ine 4 GM t_mixed mine 4 GM _with_w ater_or _non-ca rbonate d_drink } Albuterol Albuterol No 2{puffs QID Albuterol Sulfate 108 Sulfate 108 _as_nee Sulfate (90 Base) (90 Base) ded} 108 (90 MCG/ACT MCG/ACT Base) MCG/ACT Restasis Restasis No 1{drop_ BID Restasis 0.05 % 0.05 % into_af 0.05 % fected_ eye} Synthroid Synthroid No QD Synthroid 100 MCG 100 MCG 100 MCG Ibandronate Ibandronate No Ibandronat Sodium 150 Sodium 150 e Sodium MG MG 150 MG Ranitidine Ranitidine No Ranitidine HCl 150 MG HCl 150 MG HCl 150 MG Ambien 10 Ambien 10 No 1{table QD Ambien 10 MG MG t_at_be MG dtime_a s_neede d} Flonase 50 Flonase 50 No 1{spray QD Flonase 50 MCG/ACT MCG/ACT _in_eac MCG/ACT h_nostr il} PARoxetine PARoxetine No PARoxetine HCl 10 MG HCl 10 MG HCl 10 MG Famotidine Famotidine No Famotidine 40 MG 40 MG 40 MG Coreg 6.25 Coreg 6.25 No Coreg 6.25 MG MG MG Paxil 10 MG Paxil 10 MG No 1{table QD Paxil 10 t_in_th MG e_morni ng} Pantoprazol Pantoprazol No 1{table QD Pantoprazo e Sodium 40 e Sodium 40 t} le Sodium MG MG 40 MG Ambien 10 Ambien 10 No Ambien 10 Vitamin D-3 Vitamin D-3 No Vitamin 5000 UNIT 5000 UNIT D-3 5000 UNIT predniSONE predniSONE No QD predniSONE 10 MG 10 MG 10 MG Synthroid Synthroid No Synthroid 112 MCG 112 MCG 112 MCG Singulair Singulair No 1{table QD Singulair 10 MG 10 MG t} 10 MG Atorvastati Atorvastati No Atorvastat n Calcium n Calcium in Calcium 10 MG 10 MG 10 MG Omeprazole Omeprazole No 1{capsu QD Omeprazole 40 MG 40 MG le} 40 MG Ventolin Ventolin No 2{puffs Ventolin HFA 108 (90 HFA 108 (90 _as_nee HFA 108 Base) Base) ded} (90 Base) MCG/ACT MCG/ACT MCG/ACT Levothyroxi Levothyroxi No Levothyrox ne Sodium ne Sodium ine Sodium 100 MCG 100 MCG 100 MCG Carvedilol Carvedilol No Carvedilol 6.25 MG 6.25 MG 6.25 MG Xarelto 20 Xarelto 20 No Xarelto 20 MG MG MG Tylenol Tylenol No 1{table Tylenol Arthritis Arthritis t} Arthritis Pain 650 MG Pain 650 MG Pain 650 MG Montelukast Montelukast No Montelukas Sodium 10 Sodium 10 t Sodium MG MG 10 MG Albuterol Albuterol No 2{puffs Albuterol Sulfate HFA Sulfate HFA } Sulfate 108 (90 108 (90 HFA 108 Base) Base) (90 Base) MCG/ACT MCG/ACT MCG/ACT Claritin 10 Claritin 10 No 1{table QD Claritin MG MG t} 10 MG Pantoprazol Pantoprazol No Pantoprazo e Sodium 40 e Sodium 40 le Sodium MG MG 40 MG Benzonatate Benzonatate No TID Benzonatat 200 MG 200 MG e 200 MG Lipitor 10 Lipitor 10 No 1{table QD Lipitor 10 MG MG t} MG Ultram 50 Ultram 50 No 1{table QID Ultram 50 MG MG t_as_ne MG eded} Cholestyram Cholestyram No 1{packe BID Cholestyra ine 4 GM ine 4 GM t_mixed mine 4 GM _with_w ater_or _non-ca rbonate d_drink } Albuterol Albuterol No 2{puffs QID Albuterol Sulfate 108 Sulfate 108 _as_nee Sulfate (90 Base) (90 Base) ded} 108 (90 MCG/ACT MCG/ACT Base) MCG/ACT Restasis Restasis No 1{drop_ BID Restasis 0.05 % 0.05 % into_af 0.05 % fected_ eye} Synthroid Synthroid No QD Synthroid 100 MCG 100 MCG 100 MCG Ibandronate Ibandronate No Ibandronat Sodium 150 Sodium 150 e Sodium MG MG 150 MG Ranitidine Ranitidine No Ranitidine HCl 150 MG HCl 150 MG HCl 150 MG Ambien 10 Ambien 10 No 1{table QD Ambien 10 MG MG t_at_be MG dtime_a s_neede d} Flonase 50 Flonase 50 No 1{spray QD Flonase 50 MCG/ACT MCG/ACT _in_eac MCG/ACT h_nostr il} PARoxetine PARoxetine No PARoxetine HCl 10 MG HCl 10 MG HCl 10 MG Famotidine Famotidine No Famotidine 40 MG 40 MG 40 MG Coreg 6.25 Coreg 6.25 No Coreg 6.25 MG MG MG Paxil 10 MG Paxil 10 MG No 1{table QD Paxil 10 t_in_th MG e_morni ng} Pantoprazol Pantoprazol No 1{table QD Pantoprazo e Sodium 40 e Sodium 40 t} le Sodium MG MG 40 MG Ambien 10 Ambien 10 No Ambien 10 Vitamin D-3 Vitamin D-3 No Vitamin 5000 UNIT 5000 UNIT D-3 5000 UNIT predniSONE predniSONE No QD predniSONE 10 MG 10 MG 10 MG Synthroid Synthroid No Synthroid 112 MCG 112 MCG 112 MCG Singulair Singulair No 1{table QD Singulair 10 MG 10 MG t} 10 MG Atorvastati Atorvastati No Atorvastat n Calcium n Calcium in Calcium 10 MG 10 MG 10 MG Omeprazole Omeprazole No 1{capsu QD Omeprazole 40 MG 40 MG le} 40 MG Ventolin Ventolin No 2{puffs Ventolin HFA 108 (90 HFA 108 (90 _as_nee HFA 108 Base) Base) ded} (90 Base) MCG/ACT MCG/ACT MCG/ACT Levothyroxi Levothyroxi No Levothyrox ne Sodium ne Sodium ine Sodium 100 MCG 100 MCG 100 MCG Carvedilol Carvedilol No Carvedilol 6.25 MG 6.25 MG 6.25 MG Xarelto 20 Xarelto 20 No Xarelto 20 MG MG MG Tylenol Tylenol No 1{table Tylenol Arthritis Arthritis t} Arthritis Pain 650 MG Pain 650 MG Pain 650 MG Montelukast Montelukast No Montelukas Sodium 10 Sodium 10 t Sodium MG MG 10 MG Albuterol Albuterol No 2{puffs Albuterol Sulfate HFA Sulfate HFA } Sulfate 108 (90 108 (90 HFA 108 Base) Base) (90 Base) MCG/ACT MCG/ACT MCG/ACT Claritin 10 Claritin 10 No 1{table QD Claritin MG MG t} 10 MG Pantoprazol Pantoprazol No Pantoprazo e Sodium 40 e Sodium 40 le Sodium MG MG 40 MG Benzonatate Benzonatate No TID Benzonatat 200 MG 200 MG e 200 MG Ambien 10 Ambien 10 No 1{table QD Ambien 10 MG MG t_at_be MG dtime_a s_neede d} Ultram 50 Ultram 50 No 1{table QID Ultram 50 MG MG t_as_ne MG eded} Cholestyram Cholestyram No 1{packe BID Cholestyra ine 4 GM ine 4 GM t_mixed mine 4 GM _with_w ater_or _non-ca rbonate d_drink } Lipitor 10 Lipitor 10 No 1{table QD Lipitor 10 MG MG t} MG Albuterol Albuterol No 2{puffs QID Albuterol Sulfate 108 Sulfate 108 _as_nee Sulfate (90 Base) (90 Base) ded} 108 (90 MCG/ACT MCG/ACT Base) MCG/ACT Restasis Restasis No 1{drop_ BID Restasis 0.05 % 0.05 % into_af 0.05 % fected_ eye} Xarelto 20 Xarelto 20 No Xarelto 20 MG MG MG Ibandronate Ibandronate No Ibandronat Sodium 150 Sodium 150 e Sodium MG MG 150 MG Ranitidine Ranitidine No Ranitidine HCl 150 MG HCl 150 MG HCl 150 MG Synthroid Synthroid No QD Synthroid 100 MCG 100 MCG 100 MCG Flonase 50 Flonase 50 No 1{spray QD Flonase 50 MCG/ACT MCG/ACT _in_eac MCG/ACT h_nostr il} PARoxetine PARoxetine No PARoxetine HCl 10 MG HCl 10 MG HCl 10 MG Famotidine Famotidine No Famotidine 40 MG 40 MG 40 MG Coreg 6.25 Coreg 6.25 No Coreg 6.25 MG MG MG Paxil 10 MG Paxil 10 MG No 1{table QD Paxil 10 t_in_th MG e_morni ng} Pantoprazol Pantoprazol No 1{table QD Pantoprazo e Sodium 40 e Sodium 40 t} le Sodium MG MG 40 MG Ambien 10 Ambien 10 No Ambien 10 Vitamin D-3 Vitamin D-3 No Vitamin 5000 UNIT 5000 UNIT D-3 5000 UNIT predniSONE predniSONE No QD predniSONE 10 MG 10 MG 10 MG Synthroid Synthroid No Synthroid 112 MCG 112 MCG 112 MCG Singulair Singulair No 1{table QD Singulair 10 MG 10 MG t} 10 MG Atorvastati Atorvastati No Atorvastat n Calcium n Calcium in Calcium 10 MG 10 MG 10 MG Omeprazole Omeprazole No 1{capsu QD Omeprazole 40 MG 40 MG le} 40 MG Ventolin Ventolin No 2{puffs Ventolin HFA 108 (90 HFA 108 (90 _as_nee HFA 108 Base) Base) ded} (90 Base) MCG/ACT MCG/ACT MCG/ACT Levothyroxi Levothyroxi No Levothyrox ne Sodium ne Sodium ine Sodium 100 MCG 100 MCG 100 MCG Carvedilol Carvedilol No Carvedilol 6.25 MG 6.25 MG 6.25 MG Tylenol Tylenol No 1{table Tylenol Arthritis Arthritis t} Arthritis Pain 650 MG Pain 650 MG Pain 650 MG Montelukast Montelukast No Montelukas Sodium 10 Sodium 10 t Sodium MG MG 10 MG Albuterol Albuterol No 2{puffs Albuterol Sulfate HFA Sulfate HFA } Sulfate 108 (90 108 (90 HFA 108 Base) Base) (90 Base) MCG/ACT MCG/ACT MCG/ACT Claritin 10 Claritin 10 No 1{table QD Claritin MG MG t} 10 MG Pantoprazol Pantoprazol No Pantoprazo e Sodium 40 e Sodium 40 le Sodium MG MG 40 MG Benzonatate Benzonatate No TID Benzonatat 200 MG 200 MG e 200 MG Tylenol Tylenol No 1{table Tylenol Arthritis Arthritis t} Arthritis Pain 650 MG Pain 650 MG Pain 650 MG Pantoprazol Pantoprazol No 1{table QD Pantoprazo e Sodium 40 e Sodium 40 t} le Sodium MG MG 40 MG Famotidine Famotidine No Famotidine 40 MG 40 MG 40 MG Singulair Singulair No 1{table QD Singulair 10 MG 10 MG t} 10 MG Ambien 10 Ambien 10 No 1{table QD Ambien 10 MG MG t_at_be MG dtime_a s_neede d} Atorvastati Atorvastati No Atorvastat n Calcium n Calcium in Calcium 10 MG 10 MG 10 MG Anastrozole Anastrozole No 1{table QD Anastrozol 1 MG 1 MG t} e 1 MG Levothyroxi Levothyroxi No Levothyrox ne Sodium ne Sodium ine Sodium 100 MCG 100 MCG 100 MCG Pantoprazol Pantoprazol No Pantoprazo e Sodium 40 e Sodium 40 le Sodium MG MG 40 MG Synthroid Synthroid No QD Synthroid 100 MCG 100 MCG 100 MCG Ibandronate Ibandronate No Ibandronat Sodium 150 Sodium 150 e Sodium MG MG 150 MG predniSONE predniSONE No QD predniSONE 10 MG 10 MG 10 MG Claritin 10 Claritin 10 No 1{table QD Claritin MG MG t} 10 MG Albuterol Albuterol No 2{puffs Albuterol Sulfate HFA Sulfate HFA } Sulfate 108 (90 108 (90 HFA 108 Base) Base) (90 Base) MCG/ACT MCG/ACT MCG/ACT PARoxetine PARoxetine No PARoxetine HCl 10 MG HCl 10 MG HCl 10 MG Ambien 10 Ambien 10 No Ambien 10 Albuterol Albuterol No 2{puffs QID Albuterol Sulfate 108 Sulfate 108 _as_nee Sulfate (90 Base) (90 Base) ded} 108 (90 MCG/ACT MCG/ACT Base) MCG/ACT Ultram 50 Ultram 50 No 1{table QID Ultram 50 MG MG t_as_ne MG eded} Carvedilol Carvedilol No Carvedilol 6.25 MG 6.25 MG 6.25 MG Flonase 50 Flonase 50 No 1{spray QD Flonase 50 MCG/ACT MCG/ACT _in_eac MCG/ACT h_nostr il} Lipitor 10 Lipitor 10 No 1{table QD Lipitor 10 MG MG t} MG Cholestyram Cholestyram No 1{packe BID Cholestyra ine 4 GM ine 4 GM t_mixed mine 4 GM _with_w ater_or _non-ca rbonate d_drink } Omeprazole Omeprazole No 1{capsu QD Omeprazole 40 MG 40 MG le} 40 MG Vitamin D-3 Vitamin D-3 No Vitamin 5000 UNIT 5000 UNIT D-3 5000 UNIT Benzonatate Benzonatate No TID Benzonatat 200 MG 200 MG e 200 MG Xarelto 20 Xarelto 20 No Xarelto 20 MG MG MG Paxil 10 MG Paxil 10 MG No 1{table QD Paxil 10 t_in_th MG e_morni ng} Ventolin Ventolin No 2{puffs Ventolin HFA 108 (90 HFA 108 (90 _as_nee HFA 108 Base) Base) ded} (90 Base) MCG/ACT MCG/ACT MCG/ACT Coreg 6.25 Coreg 6.25 No Coreg 6.25 MG MG MG Montelukast Montelukast No Montelukas Sodium 10 Sodium 10 t Sodium MG MG 10 MG Immunizations Ordered Filled Immunization Date Status Comments [facility] e Immunization Name Name SARS-COV-2 COVID-19 2020-08-02 Completed [facility] PFIZER VACCINE 00:00:00 [facility] SARS-COV-2 COVID-19 2020-08-02 Completed [facility]ive rs[facility] of PFIZER VACCINE 00:00:00 [facility] SARS-COV-2 COVID-19 2020-08-02 Completed [facility]ive rs[facility] of PFIZER VACCINE 00:00:00 [facility] SARS-COV-2 COVID-19 2020-08-02 Completed [facility]ive rs[facility] of PFIZER VACCINE 00:00:00 [facility] SARS-COV-2 COVID-19 2020-08-02 Completed [facility] rs[facility] of PFIZER VACCINE 00:00:00 [facility] SARS-COV-2 COVID-19 2020-08-02 Completed [facility]ive rs[facility] of PFIZER VACCINE 00:00:00 [facility] SARS-COV-2 COVID-19 2020-07-12 Completed [facility]ive rs[facility] of PFIZER VACCINE 00:00:00 [facility] SARS-COV-2 COVID-19 2020-07-12 Completed [facility]ive rs[facility] of PFIZER VACCINE 00:00:00 [facility] SARS-COV-2 COVID-19 2020-07-12 Completed [facility]ive rsity of PFIZER VACCINE 00:00:00 [facility] SARS-COV-2 COVID-19 2020-07-12 Completed [facility]ive rsity of PFIZER VACCINE 00:00:00 [facility] SARS-COV-2 COVID-19 2020-07-12 Completed [facility]ive rs[facility] of PFIZER VACCINE 00:00:00 [facility] SARS-COV-2 COVID-19 2020-07-12 Completed [facility]ive rs[facility] of PFIZER VACCINE 00:00:00 [facility] FluAD FluAD 2020-02-23 [facility] FluAD FluAD 2020-02-23 [facility]00 [facility] FluAD FluAD 2020-02-23 [facility]00 [facility] FluAD FluAD 2020-02-23 [facility]00 [facility] FluAD FluAD 2020-02-23 [facility]00 [facility] FluAD FluAD 2020-02-23 [facility]00 [facility] FluAD FluAD 2020-02-23 Com[facility]00 [facility] FluAD FluAD 2020-02-23 [facility]00 [facility] FluAD FluAD 2020-02-23 Com[facility]00 [facility] FluAD FluAD 2020-02-23 Completed [facility]00 [facility] FluAD FluAD 2020-02-23 Completed [facility] 13[facility]:00 [facility] FluAD FluAD 2020-02-23 Completed [facility]00 [facility] FluAD FluAD 2020-02-23 Completed [facility]00 [facility] FluAD FluAD 2020-02-23 Completed [facility]00 [facility] FluAD FluAD 2020-02-23 Completed [facility] 13[facility]00 [facility] FluAD FluAD 2020-02-23 Com[facility]00 [facility] FluAD FluAD 2020-02-23 Completed [facility]00 [facility] FluAD FluAD 2020-02-23 Completed [facility] 13:[facility]:00 [facility] FluAD FluAD 2020-02-23 Completed [facility] 13:[facility]00 [facility] FluAD FluAD 2020-02-23 Completed [facility]00 [facility] FluAD FluAD 2020-02-23 Completed [facility] 13[facility]00 [facility] FluAD FluAD 2020-02-23 Completed [facility] 13[facility]00 [facility] FluAD FluAD 2020-02-23 Completed [facility] 13:[facility]00 [facility] FluAD FluAD 2020-02-23 Completed [facility]00 [facility] FluAD FluAD 2020-02-23 Completed [facility]00 [facility] FluAD FluAD 2020-02-23 Completed [facility] 13:[facility]:00 [facility] FluAD FluAD 2020-02-23 Completed [facility] 13:[facility]:00 [facility] FluAD FluAD 2020-02-23 Completed [facility]00 [facility] FluAD FluAD 2020-02-23 Completed [facility]00 [facility] FluAD FluAD 2020-02-23 Completed [facility] - 13:37:00 [facility] Vital Signs Vital Name Observation Time Observation Value Comments Source height 2022-03-10 13:00:00 63.75 [in_i] [facility] weight 2022-03-10 13:00:00 117.6 [lb_av] [facility] temperature 2022-03-10 13:00:00 97.2 [degF] [facility] bmi 2022-03-10 13:00:00 20.34 kg/m2 [facility] oximetry 2022-03-10 13:00:00 98 % [facility] respiratory rate 2022-03-10 13:00:00 16 /min Comm on [facility] blood pressure 2022-03-10 13:00:00 128 mm[Hg] [facility] [place] [facility] blood pressure 2022-03-10 13:00:00 72 mm[Hg] [facility] diastolic [facility] height 2021-12-02 14:20:00 64 [in_i] [facility] weight 2021-12-02 14:20:00 115.4 [lb_av] [facility] temperature 2021-12-02 14:20:00 97.9 [degF] [facility] bmi 2021-12-02 14:20:00 19.81 kg/m2 [facility] oximetry 2021-12-02 14:20:00 96 % [facility] respiratory rate 2021-12-02 14:20:00 16 /min Comm on [facility] blood pressure 2021-12-02 14:20:00 137 mm[Hg] [facility] - systolic [facility] blood pressure 2021-12-02 14:20:00 60 mm[Hg] [facility] - diastolic [facility] height 2021-12-02 14:00:00 64 [in_i] [facility] weight 2021-12-02 14:00:00 115.4 [lb_av] [facility] temperature 2021-12-02 14:00:00 97.9 [degF] [facility] bmi 2021-12-02 14:00:00 19.81 kg/m2 [facility] oximetry 2021-12-02 14:00:00 96 % [facility] respiratory rate 2021-12-02 14:00:00 16 /min Comm on [facility] blood pressure 2021-12-02 14:00:00 137 mm[Hg] [facility] systolic [facility] blood pressure 2021-12-02 14:00:00 60 mm[Hg] [facility] diastolic [facility] height 2021-03-07 08:40:00 64 [in_i] [facility] weight 2021-03-07 08:40:00 119.8 [lb_av] [facility] bmi 2021-03-07 08:40:00 20.56 kg/m2 [facility] Procedures Procedure Date / Time Performing Clinician Source Performed HB CREATININE SERUM/BLOOD 2022-04-28 18:34:00 Radiology [facility] IMAGING Medical Branch ASSIGNMENT OF BENEFITS 2022-04-28 16:33:23 Doctor Unassigned, [facility] [place] [facility] US ABDOMEN LIMITED 2021-09-25 15:45:05 Requisition, Paper [facility] [place] NOTICE OF BILLING 2021-09-18 18:55:23 Doctor Liyahigned, [facility] PRACTICES FOR MEDICARE [place] [facility] PATIENTS [facility] PATIENT FINANCIAL 2021-09-18 18:55:05 Doctor Meena, [facility] POLICY [place] [facility] NO SHOW OR MISSED 2021-09-18 18:54:43 Doctor Unaluis carlosigned, [facility] APPOINTMENT POLICY [place] [facility] ACKNOWLEDGEMENT NOTICE OF PRIVACY 2021-09-18 18:54:20 Doctor Unassigned, [facility] PRACTICES [place] [facility] CONSENT/REFUSAL FOR 2021-09-18 18:54:04 Doctor Unassigned, [facility] DIAGNOSIS AND TREATMENT [place] [facility] ASSIGNMENT OF BENEFITS 2021-09-18 18:53:47 Doctor Unassigned, [facility] [place] [facility] Plan of Care Planned Activity Planned Date Details Comments Source Future Scheduled 2023-01-[address] [facility] 00:00:00 (Season Ended) [code = Medic al Center INFLUENZA VACCINE (Season Ended)] Future Scheduled 2022-05-[address] [facility] Test 00:00:00 (12+) [code = Medical Center DEPRESSION SCREENING (12+)] Future Scheduled 2022-05-10 FALLS RISK SCREENING [facility] Test 00:00:00 [code = FALLS RISK Medical C enter SCREENING] Future Scheduled 2007 PNEUMOCOCCAL 65+ YRS [facility] Test 00:00:00 (1 - PCV) [code = Medical Ce nter PNEUMOCOCCAL 65+ YRS (1 - PCV)] Future Scheduled 1992 SHINGLES VACCINES ([address] [facility] 00:00:00 of 2) [code = SHINGLES Medic al Center VACCINES (1 of 2)] Future Scheduled 1961 DTAP/TDAP/TD VACCINES [facility] 00:00:00 (1 - Tdap) [code = Medical C enter DTAP/TDAP/TD VACCINES (1 - Tdap)] Future Scheduled [address] [facility] Test 00:00:00 [facility] r Screening (12+) [code = Tobacco Cessation Counseling and Screening (12+)] Future Scheduled 1942 COVID-19 VACCINE (#1) [facility] 00:00:00 [code = COVID-[address] VACCINE (#1)] Future Scheduled 1942 DXA SCAN [code = DXA [facility] Test 00:00:00 SCAN] Medical Center Encounters Start End Encounter Admission Attending Care Care Encounter Source Date/Time Date/Time Type Type Clinicians Facility Department ID 2022-07-17 Outpatient She, STLMLC STLM [id number] Common 11:23:00 Adelita [id number] [facility] 2022-06-23 Outpatient [place], Na STLMLC STLMLC [id number] Common 11:15:01 [id number] [facility] 2022-03-06 Outpatient [place], Na STLMLC STLMLC [id number] Common 13:41:01 [facility] 2021-09-15 Outpatient [place], Na STLMLC STLMLC [id number] Common 09:24:01 [facility] 2021-07-01 Outpatient [place], Na STLMLC STLMLC [id number] Common 14:16:00 [facility] 2021-06-06 Outpatient [place], Na STLMLC STLMLC [id number] Common 09:42:01 [facility] 2021-06-04 Outpatient [place], Na STLMLC STLMLC [id number] Common 14:37:02 [facility] 2021-06-04 Outpatient [place], Na STLMLC STLMLC [id number] Common 14:06:20 [id number] [facility] 2021-06-04 Outpatient [place], Na STLMLC STLMLC [id number] Common 13:15:24 [id number] [facility] 2021-06-04 Outpatient [place], Na STLMLC STLMLC [id number] 2 Common 12:53:14 [id number] [facility] 2021-06-04 Outpatient [place], Na STLMLC STLMLC [id number] 2 Common 12:52:33 [id number] [facility] 2021-06-04 Outpatient [place], Na STLMLC STLMLC [id number] 2 Common 12:51:53 [id number] [facility] 2021-06-04 Outpatient [place], Na STLMLC STLMLC [id number] 2 Common 12:20:41 [id number] [facility] 2021-06-04 Outpatient [place], Na STLMLC STLMLC [id number] 2 Common 11:56:07 [id number] [facility] 2021-06-04 Outpatient [place], Na STLMLC STLMLC [id number] 2 Common 11:55:06 [id number] [facility] 2021-06-04 Outpatient [place], Na STLMLC STLMLC [id number] 2 Common 11:30:04 [id number] [facility] 2021-06-04 Outpatient [place], Na STLMLC STLMLC [id number] 2 Common 11:16:41 [id number] [facility] 2022-07-20 2022-07-[address] [facility] [id number] [facility] 00:00:00 00:00:00 Orders [facility] [place] 2022-07-01 2022-07-[address] [facility] [id number] Univers 15:14:57 23:59:00 Encounter [place] [id number] ity [facility] [id number] [facility] [id number] [facility] 8[address] Branch 2022-07-01 2022-07-01 Outpatient R RADIOLOGY [facility] [id number] Univers 15:14:18 23:59:00 ity [facility] 2022-07-01 2022-07-01 [facility] Radiology [facility] [id number] Univers 15:14:18 23:59:00 Encounter [place] [id number] ity [facility] [id number] [facility] [id number] [facility] 801 Branch 2022-06-11 2022-06-11 (TEL) STLMLC STLMLC [id number] Co mmon 00:00:00 00:00:00 [facility] 2022-05-27 2022-05-27 (TEL) STLMLC STLMLC [id number] Co mmon 00:00:00 00:00:00 [facility] 2022-04-28 2022-04-28 Outpatient R RADIOLOGY [facility] [id number] Univers 10:36:22 23:59:00 ity [facility] 2022-04-28 2022-04-[address] [facility] [id number] Univers 10:36:22 23:59:00 Encounter [place] [id number] ity of [place] [id number] [facility] [id number] [facility] 801 Branch 2022-04-28 2022-04-28 Orders Doctor LEDY [id number] Univers 00:00:00 00:00:00 Only Unassigned, JANE[place] [id number] ity of [facility] [id number] [facility] [id number] [facility] 009 Branch 2022-04-24 2022-04-24 (TEL) STLMLC STLMLC [id number] Co mmon 00:00:00 00:00:00 [facility] 2022-04-06 2022-04-06 (TEL) STLMLC STLMLC [id number] Co mmon 00:00:00 00:00:00 [facility] 2022-03-31 2022-03-31 (TEL) STLMLC STLMLC [id number] Co mmon 00:00:00 00:00:00 [facility] 2022-03-31 2022-03-31 (TEL) STLMLC STLMLC [id number] Co mmon 00:00:00 00:00:00 [facility] 2022-03-10 2022-03-10 (TEL) STLMLC STLMLC [id number] Co mmon 00:00:00 00:00:00 [facility] 2022-03-10 2022-03-10 OFFICE STLMLC STLMLC [id number] Co mmon 00:00:00 00:00:00 VISIT [facility] LEVEL 4 [facility] 2022-02-23 2022-02-23 (TEL) STLMLC STLMLC [id number] Co mmon 00:00:00 00:00:00 [facility] 2021-12-25 2021-12-25 (TEL) STLMLC STLMLC [id number] Co mmon 00:00:00 00:00:00 [facility] 2021-12-25 2021-12-25 (TEL) STLMLC STLMLC [id number] Co mmon 00:00:00 00:00:00 [facility] 2021-12-02 2021-12-02 SUB ANNUAL STLMLC STLMLC [id number] Common 00:00:00 00:00:00 MCR [facility] VISIT [facility] 2021-12-02 2021-12-02 OFFICE STLMLC STLMLC [id number] Co mmon 00:00:00 00:00:00 VISIT EST Spir it PT LEVEL 3 [facility] 2021-11-05 2021-11-05 (TEL) STLMLC STLMLC [id number] Co mmon 00:00:00 00:00:00 [facility] 2021-10-14 2021-10-14 (TEL) STLMLC STLMLC [id number] Co mmon 00:00:00 00:00:00 [facility] 2021-10-14 2021-10-14 (TEL) STLMLC STLMLC [id number] Co mmon 00:00:00 00:00:00 [facility] 2021-09-25 2021-09-25 Outpatient R RADIOLOGY [facility] [id number] Univers 09:36:08 23:59:00 ity of [facility] 2021-09-25 2021-09-[address] [facility] [id number] Univers 09:36:08 23:59:00 Encounter [place] [id number] ity [facility] [id number] [facility] [id number] [facility] 80 Branch 2021-09-18 2021-09-18 Outpatient R RADIOLOGY [facility] [id number] Univers 13:57:17 23:59:00 ity of [facility] 2021-09-18 2021-09-[address] [facility] [id number] Univers 13:57:17 23:59:00 Encounter [place] [id number] itjohan kapadia CRISTIANE [id number] [facility] [id number] [facility] mark [address] Branch 2021-09-17 2021-09-17 OL DIG E/M STLMLC STLMLC [id number] Common 00:00:00 00:00:00 [facility] 03-29 Spir it MIN [facility] 2021-08-04 2021-08-04 (TEL) STLMLC STLMLC [id number] Co mmon 00:00:00 00:00:00 [facility] 2021-07-30 2021-07-30 (TEL) STLMLC STLMLC [id number] Co mmon 00:00:00 00:00:00 [facility] 2021-07-23 2021-07-23 (TEL) STLMLC STLMLC [id number] Co mmon 00:00:00 00:00:00 [facility] 2021-07-10 2021-07-10 OL DIG E/M STLMLC STLMLC [id number] Common 00:00:00 00:00:00 [facility] 03-29 Spir it MIN [facility] 2021-07-01 2021-07-01 (TEL) STLMLC STLMLC [id number] Co mmon 00:00:00 00:00:00 [facility] 2021-06-12 2021-06-12 (TEL) STLMLC STLMLC [id number] Co mmon 00:00:00 00:00:00 [facility] 2021-05-27 2021-05-27 (TEL) STLMLC STLMLC [id number] Co mmon 00:00:00 00:00:00 [facility] 2021-05-27 2021-05-27 OL DIG E/M STLMLC STLMLC [id number] Common 00:00:00 00:00:00 [facility] 20 Spir it MIN [facility] 2021-04-14 2021-04-14 (TEL) STLMLC STLMLC [id number] Co mmon 00:00:00 00:00:00 [facility] 2021-03-13 2021-03-13 (TEL) STLMLC STLMLC [id number] Co mmon 00:00:00 00:00:00 [facility] 2021-03-07 2021-03-07 OFFICE STLMLC STLMLC [id number] Co mmon 00:00:00 00:00:00 VISIT EST Spir it PT LEVEL 3 [facility] 2021-03-04 2021-03-04 (TEL) STLMLC STLMLC [id number] Co mmon 00:00:00 00:00:00 [facility] 2021-03-03 2021-03-03 (TEL) STLMLC STLMLC [id number] Co mmon 00:00:00 00:00:00 [facility] 2020-11-25 2020-11-25 Outpatient STLMLC STLMLC [id number] Common 00:00:00 00:00:00 [facility] 2020-11-14 2020-11-14 Outpatient STLMLC STLMLC [id number] Common 00:00:00 00:00:00 [facility] 2020-10-24 2020-10-24 Outpatient STLMLC STLMLC [id number] Common 00:00:00 00:00:00 [facility] 2020-10-17 2020-10-17 Outpatient STLMLC STLMLC [id number] Common 00:00:00 00:00:00 [facility] 2020-09-26 2020-09-26 Outpatient STLMLC STLMLC [id number] Common 00:00:00 00:00:00 [facility] 2020-09-20 2020-09-20 Outpatient STLMLC STLMLC [id number] Common 00:00:00 00:00:00 [facility] 2020-09-09 2020-09-09 Outpatient STLMLC STLMLC [id number] Common 00:00:00 00:00:00 [facility] 2020-09-03 2020-09-03 Outpatient STLMLC STLMLC [id number] Common 00:00:00 00:00:00 [facility] 2020-08-22 2020-08-22 Outpatient STLMLC STLMLC [id number] Common 00:00:00 00:00:00 [facility] 2020-05-24 2020-05-24 Outpatient STLMLC STLMLC [id number] Common 00:00:00 00:00:00 [facility] 2020-02-23 2020-02-23 Outpatient [facility] ST[facility] [id number] Common 00:00:00 00:00:00 [facility] 2019-11-22 2019-11-22 [facility] [id number] Common 16:16:00 16:16:00 [place] [address] [facility] 2019-11-16 2019-11-16 [facility] [id number] Common 13:40:00 13:40:00 [place] [address] [facility] 2019-09-26 2019-09-26 Outpatient [facility]LML[facility] STLMLC [id number] Common 06:23:00 06:23:00 [facility] 2019-08-11 2019-08-11 [facility] [id number] Common 13:40:00 13:40:00 [place] [address] [facility] 2019-07-20 2019-07-20 Outpatient [facility] [id number] 12:03:00 12:03:00 _A_AH [id number] Family Practic e 2019-07-20 2019-07-20 Outpatient [facility] [id number] 12:03:00 12:03:00 _A_AH [id number] Family Practic e 2019-07-20 2019-07-20 Outpatient Felix-Mbayo VFP VFP [id number] [facility] 12:03:00 12:03:00 _A_AH [id number] Family Practic e 2019-07-20 2019-07-20 Outpatient Felix[facility]Mbayo VFP VFP [id number] 12:03:00 12:03:00 _A_AH [id number] Family Practic e 2019-07-10 2019-07-10 Out[facility] [id number] [facility] 13:46:00 13:46:00 [place] [address] [facility] 2019-07-04 2019-07-04 Out[facility] [id number] [facility] 11:30:00 11:30:00 [place] [address] [facility] 2019-06-28 2019-06-28 Outpatient [facility] [id number] [facility] 07:14:00 07:14:00 _A_AH [id number] Family Practic e 2019-05-15 2019-05-15 Out[facility] [id number] [place] 16:18:00 16:18:00 [place] [address] [facility] 2019-04-10 2019-04-10 Out[facility] [id number] [place] 10:20:00 10:20:00 [place] [address] [facility] 2019-03-22 2019-03-22 Out[facility] [id number] [place] 16:26:00 16:26:00 [place] [address] [facility] 2019-02-14 2019-02-14 Out[facility] [id number] [place] 13:40:00 13:40:00 [place] [address] [facility] 2019-01-03 2019-01-03 Out[facility] [id number] [place] 13:00:00 13:00:00 [place] [address] [facility] 2018-12-06 2018-12-06 Out[facility] [id number] [place] 14:36:00 14:36:00 t Specialty/U Sp [facility] Specialty rology - [facility] /[facility]rology Clinic [facility] 2018-11-24 2018-11-24 Out[facility] [id number] Common 14:36:00 14:36:00 t Specialty/U Sp [facility]mer Specialty rology - [facility]rology Clinic [facility] 2018-11-24 2018-11-24 Out[facility] [id number] Common 14:30:00 14:30:00 t Specialty/U Sp palmer Specialty rology - [facility] /Urology Clinic [facility] 2018-11-23 2018-11-23 Out[facility] [id number] Common 18:48:00 18:48:00 t Urgent Urgent Care S pirit Care [facility] 2018-11-23 2018-11-23 Out[facility] [id number] Common 16:38:00 16:38:00 [place] [address] [facility] 2018-11-23 2018-11-23 Out[facility] [id number] Common 15:00:00 15:00:00 t Urgent Urgent Care S pirit Care [facility] 2018-10-04 2018-10-04 Out[facility] [id number] Common 13:20:00 13:20:00 [place] [address] [facility] 2018-09-01 2018-09-01 Out[facility] [id number] Common 16:09:00 16:09:00 [place] [address] [facility] 2018-08-30 2018-08-30 Out[facility] [id number] Common 13:20:00 13:20:00 [place] [address] [facility] 2018-07-06 2018-07-06 Out[facility] [id number] Common 09:16:00 09:16:00 [place] [address] [facility] 2018-06-27 2018-06-27 Out[facility] [id number] Common 14:30:00 14:30:00 [place] [address] [facility] 2018-03-24 2018-03-24 Out[facility] [id number] Common 15:00:00 15:00:00 [place] [address] [facility] 2017-12-23 2017-12-23 [facility] [id number] [place] 14:30:00 14:30:00 [place] [address] [facility] 2017-10-21 2017-10-21 Out[facility] [id number] Common 09:30:00 09:30:00 [place] [address] [facility] 2017-09-21 2017-09-21 Out[facility] [id number] Common 11:12:00 11:12:00 [place] [address] [facility] 2017-09-20 2017-09-20 Out[facility] [id number] Common 14:30:00 14:30:00 [place] [address] [facility] Results Test Description Test Time Test Comments Results Result Comments Source POCT CREATININE 2022-04-29 03:45:36 Test Item Value Reference Range Interpretation Comme nts POCT Creatinine (test code = 4642176504) 0.9 mg/dL 0.5-1.1 Lab Interpretation (test code = 36827-9) [facility][id number] 00:00:00 Test Item Value Reference Range Interpretation Comments SARS-CoV-2 INTERPRETATION (test POSITIVE SEE NOTE code = 37557-2) SOURCE (test code = 59893-2) NOT SPECIFIED
[2022-09-05 16:20] LABS: Absolute Lymphocytes (CBC) 0.6 K/uL (0.7-4.9); Hematocrit 34.3 % (36.0-45.0); Lymphocytes % 18.2 % (15.3-44.8); MCV 100.1 fL (80-100); MPV 6.6 fL (7.6-11.3); RBC Red Blood Cell Count 3.43 M/uL (3.86-4.86)
[2022-09-05 16:23] LABS: Protime INR 1.56
--- NOTE | 2022-09-05 16:24 | RAD REPORT ---
EXAM DESCRIPTION: CT - Head Brain Wo Cont - 09/05/2022 3:45 pm CLINICAL HISTORY: SYNCOPE COMPARISON: No comparisons TECHNIQUE: Noncontrast head CT images ad were obtained without IV contrast. Multiplanar reformats we re generated and reviewed. All CT scans are performed using dose optimization technique as appropriate and may include automated exposure control or mA/KV adjustment according to patient size. FINDINGS: No intracranial hemorrhage, mass, or edema. Midline structures are unremarkable. Normal ventricular caliber for age. Piedra-white matter differentiation is preserved, without evidence of acute infarct. No abnormal extra- axial fluid collections. Mild periventricular patchy hypoattenuation, nonspecific, but suggestive of chronic small vessel ischemic changes. Mastoid air cells and visualized portions of the paranasal sinuses are clear. No acute bony findings. 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 IMPRESSION: No evidence of an acute intracranial process.
[2022-09-05 16:35] LABS: Specific Gravity 1.021 (1.005-1.030); Urine Bacteria <20 /HPF (<20); Urine Bilirubin NEGATIVE (Negative); Urine Blood 2+ (Negative); Urine Clarity Turbid (Clear); Urine Color Yellow (Yellow); Urine Glucose NEGATIVE (Negative); Urine Mucus 2+ /HPF (None Seen); Urine Protein 1+ (Negative); Urine Urobilinogen 1+ (Normal); Urine pH 5.5 (5.0-7.0)
[2022-09-05 16:37] LABS: Albumin 3.5 g/dL (3.4-5.0); Bilirubin Direct 0.2 mg/dL (0-0.2); Bilirubin Total 0.8 mg/dL (0.2-1.0); Magnesium 1.9 mg/dL (1.6-2.4); Potassium 4.5 mEq/L (3.5-5.1); Protein, Total 6.5 g/dL (6.4-8.2)
[2022-09-05 16:49] LABS: Troponin High Sensitivity 64.3 pg/mL (<58.9)
--- NOTE | 2022-09-05 16:57 | EDPHYS ---
Physician Documentation [facility] Name: Ricarda Dixon Age: 82 yrs Sex: Female : 1940 Arrival Date: 09/05/2022 Time: 15:02 Bed 14 Private MD: ED Physician Joey Garza HPI: 09/05 17:02 This 82 yrs old Unknown Female presents to ER via Wheelchair with complaints of ms3 Syncope, Passed Out Prior To Arrival, afib. 17:02 82-year-old female with past medical history of atrial fibrillation, thyroid cancer, ms3 breast cancer presents with her status post syncopal episode approximately 15 minutes prior to arrival. Patient's states patient was standing at the sink when she began to feel weak and collapsed. Patient's then stood her up where she had another syncopal episode, and then patient's states later on she had a third episode. Patient denies pain. Patient denies chest pain, shortness of breath, nausea, vomiting.. Historical: - Allergies: 15:32 Hydrocodone-Acetaminophen; iw 15:32 Iodine; iw 15:32 Morphine; iw 15:32 Sulfa (Sulfonamide Antibiotics); iw - Home Meds: 15:34 carvedilol 6.25 mg Oral tab 1 tab 2 times per day [Active]; Verzenio 50 mg oral tablet iw 2 times per day [Active]; levothyroxine 112 mcg oral capsule daily [Active]; paroxetine HCl 10 mg oral tablet daily [Active]; atorvastatin 10 mg Oral tab 1 tab once daily [Active]; Xarelto 20 mg Oral tab 1 tab once daily [Active]; famotidine 40 mg Oral tablet nightly [Active]; montelukast 10 mg oral tablet daily [Active]; zolpidem 10 mg Oral tab 1 tab once daily [Active]; anastrozole 1 mg oral tablet daily [Active]; granisetron HCl oral 4 mg as needed [Active]; loperamide 2 mg Oral capsule as needed [Active]; - PMHx: 15:32 Atrial Fib; THYROID CANCER; breast cancer; iw - PSHx: 15:32 Thyroidectomy; Left mastectomy; iw - Immunization history:: Adult Immunizations up to date. - Social history:: Smoking status: Patient reports the use of cigarette tobacco products, denies chronic smoking, but will smoke occasionally. ROS: 17:02 Constitutional: Negative for fever, and chills. Neck: Negative for injury, pain, and ms3 swelling, Cardiovascular: Negative for chest pain, and palpitations. Respiratory: Negative for shortness of breath, cough, wheezing, and pleuritic chest pain, Abdomen/GI: Negative for abdominal pain, nausea, vomiting, diarrhea, and constipation, MS/Extremity: Negative for injury and deformity, Skin: Negative for injury, rash, and discoloration. 17:02 Neuro: Positive for syncope. 17:02 All other systems are negative. Exam: 17:02 Constitutional: This is a well developed, well nourished patient who is awake, alert, ms3 and in no acute distress. Head/Face: Normocephalic, atraumatic. ENT: Nares patent. No nasal discharge, no septal abnormalities noted. Tympanic membranes are normal and external auditory canals are clear. Oropharynx with no redness, swelling, or masses, exudates, or evidence of obstruction, uvula midline. Mucous membranes moist. Neck: Trachea midline, no cervical lymphadenopathy. Supple, full range of motion without nuchal rigidity, or vertebral point tenderness. No Meningismus. Chest/axilla: Normal chest wall appearance and motion. Nontender with no deformity. Respiratory: Lungs have equal breath sounds bilaterally, clear to auscultation and percussion. No rales, rhonchi or wheezes noted. No increased work of breathing, no retractions or nasal flaring. Abdomen/GI: Soft, non-tender, with normal bowel sounds. No distension or tympany. No guarding or rebound. No evidence of tenderness throughout. Skin: Warm, dry with normal turgor. Normal color with no rashes, no lesions, and no evidence of cellulitis. 17:02 Cardiovascular: Rate: normal, Rhythm: irregularly irregular, Pulses: no pulse deficits are appreciated, Heart sounds: normal, normal S1and S2. 17:04 ECG was reviewed by the Attending Physician. ms3 Vital Signs: 15:28 BP 143 / 62; Pulse 60; Resp 16 S; Pulse Ox 98% on R/A; Weight 50.8 kg; Height 5 ft. 4 iw in. ; Pain 3/10; 17:15 BP 156 / 80; Pulse 61; Resp 18; Pulse Ox 100% on R/A; kr3 18:34 BP 147 / 56 Supine; Pulse 64 RA; kr3 18:34 BP 157 / 67 Sitting; Pulse 66 RA; kr3 18:34 BP 153 / 69 Standing; Pulse 77 RA; kr3 15:28 Body Mass Index 19.22 (50.80 kg, 162.56 cm) iw 15:28 Pain Scale: Adult iw MDM: 15:28 Patient medically screened. ms3 16:55 Differential Diagnosis: cardiac arrhythmia, idiopathic syncope, myocardial infarction. ms3 Data reviewed: vital signs, nurses notes, lab test result(s), EKG, radiologic studies, and as a result, I will admit patient. Consideration of Admission/Observation Patient was admitted/placed on observation. Management of patient was discussed with the following: Hospitalist: Dr Rodriguez. Independent interpretation of the following test(s) in the Emergency Department EKG: See my EKG interpretation above court monitor: rate is 62 beats/min, Rhythm is atrial fibrillation, with no ectopy, Interpretation: normal rate, atrial fibrillation. Historians other than the Patient: Spouse/Significant Other: Patient's . Counseling: I had a detailed discussion with the patient and/or guardian regarding: the historical points, exam findings, and any diagnostic results supporting the discharge/admit diagnosis, lab results, radiology results, the need for further work-up and treatment in the hospital. Response to treatment: the patient's symptoms have resolved after treatment, the patient's blood pressure is in an acceptable range, mental status has returned to baseline, the patient no longer shows bradycardia, the patient is not short of breath, the patient is not tachycardic, and as a result, I will admit patient. 09/05 15:29 Order name: Basic Metabolic Panel; Complete Time: 16:50 ms3 09/05 15:29 Order name: CBC with Diff; Complete Time: 16:50 ms3 09/05 15:29 Order name: Hepatic Function; Complete Time: 16:50 ms3 09/05 15:29 Order name: Magnesium; Complete Time: 16:50 ms3 09/05 15:29 Order name: Protime (+inr); Complete Time: 16:50 ms3 09/05 15:29 Order name: Ptt, Activated; Complete Time: 16:50 ms3 09/05 15:29 Order name: Troponin High Sensitivity; Complete Time: 16:50 ms3 09/05 15:29 Order name: Urinalysis w/ reflexes; Complete Time: 16:50 ms3 09/05 18:07 Order name: Basic Metabolic Panel EDMS 09/05 18:07 Order name: Basic Metabolic Panel EDMS 09/05 18:07 Order name: CBC with Automated Diff EDMS 09/05 18:07 Order name: CBC with Automated Diff EDMS 09/05 18:07 Order name: Lipid Profile EDMS 09/05 18:07 Order name: Lipid Profile EDMS 09/05 18:07 Order name: Troponin High Sensitivity EDMS 09/05 18:07 Order name: Troponin High Sensitivity EDMS 09/05 18:07 Order name: Troponin High Sensitivity EDMS 09/05 18:07 Order name: Troponin High Sensitivity EDMS 09/06 03:33 Order name: Lipid Profile EDMS 09/05 15:29 Order name: CT Head Brain wo Cont; Complete Time: 16:50 ms3 09/05 15:29 Order name: Chest Single View XRAY ms3 09/05 18:07 Order name: Echo with Doppler EDMS 09/06 11:51 Order name: US EDMS 09/05 15:29 Order name: EKG; Complete Time: 15:30 ms3 09/05 18:07 Order name: CONS Physician Consult EDMS 09/05 18:07 Order name: Heart Healthy EDMS 09/05 15:29 Order name: Cardiac monitoring; Complete Time: 16:55 ms3 09/05 15:29 Order name: EKG - Nurse/Tech; Complete Time: 17:41 ms3 09/05 15:29 Order name: IV Saline Lock; Complete Time: 16:55 ms3 09/05 15:29 Order name: Labs collected and sent; Complete Time: 16:55 ms3 09/05 15:29 Order name: NPO; Complete Time: 16:55 ms3 09/05 15:29 Order name: O2 Per Protocol; Complete Time: 16:55 ms3 09/05 15:29 Order name: O2 Sat Monitoring; Complete Time: 16:55 ms3 09/05 15:29 Order name: Orthostatics; Complete Time: 18:35 ms3 EC:04 Rate is 73 beats/min. Rhythm is irregularly irregular. QRS [place] is Normal. FL interval ms3 is normal. QRS interval is normal. QT interval is normal. Clinical impression: Atrial Fibrillation. Interpreted by me. Reviewed by me. Administered Medications: No medications were administered Disposition Summary: 09/05/22 16:57 Hospitalization Ordered Hospitalization Status: Inpatient Admission ms3 Provider: Nellie Rodriguez ms3 Condition: Stable ms3 Problem: new ms3 Symptoms: are unchanged ms3 Bed/Room Type: Standard ms3 Location: [facility] ER HOLD(09/05/22 20:20) Room Assignment: ERHOLD-(09/05/22 20:20) cg Diagnosis - Syncope ms3 - Elevated Troponin ms3 - Unspecified atrial fibrillation ms3 Forms: - Medication Reconciliation Form ms3 - SBAR form ms3 Signatures: Dispatcher [employer] EDMarissa Snow RN RN Rubia Cruz RN RN cg Joey Garza DO DO ms3 Corrections: (The following items were deleted from the chart) 20:20 16:57 Telemetry/MedSurg (Inpatient) ms3 cg 20:20 16:57 ms3 cg
--- NOTE | 2022-09-05 16:57 | ER ---
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 Coronavirus screen: At this time, the client does not indicate any symptoms associated with coronavirus-19. Ebola Screen: Patient negative for fever greater than or equal to 101.5 degrees Fahrenheit, and additional compatible Ebola Virus Disease symptoms Patient denies exposure to infectious person. Patient denies travel to an Ebola-affected area in the 21 days before illness onset. No symptoms or risks identified at this time. Initial Sepsis Screen: Does the patient meet any 2 criteria? Does the patient have a suspected source of infection? No. Patient's initial sepsis screen is negative. Risk Assessment: Do you want to hurt yourself or someone else? Patient reports no desire to harm self or others. Onset of symptoms was September 05, 2022. 15:28 Method Of Arrival: Wheelchair iw 15:28 Acuity: SANTINO 2 iw Historical: - Allergies: 15:32 Hydrocodone-Acetaminophen; iw 15:32 Iodine; iw 15:32 Morphine; iw 15:32 Sulfa (Sulfonamide Antibiotics); iw - Home Meds: 15:34 carvedilol 6.25 mg Oral tab 1 tab 2 times per day [Active]; Verzenio 50 mg oral tablet iw 2 times per day [Active]; levothyroxine 112 mcg oral capsule daily [Active]; paroxetine HCl 10 mg oral tablet daily [Active]; atorvastatin 10 mg Oral tab 1 tab once daily [Active]; Xarelto 20 mg Oral tab 1 tab once daily [Active]; famotidine 40 mg Oral tablet nightly [Active]; montelukast 10 mg oral tablet daily [Active]; zolpidem 10 mg Oral tab 1 tab once daily [Active]; anastrozole 1 mg oral tablet daily [Active]; granisetron HCl oral 4 mg as needed [Active]; loperamide 2 mg Oral capsule as needed [Active]; - PMHx: 15:32 Atrial Fib; THYROID CANCER; breast cancer; iw - PSHx: 15:32 Thyroidectomy; Left mastectomy; iw - Immunization history:: Adult Immunizations up to date. - Social history:: Smoking status: Patient reports the use of cigarette tobacco products, denies chronic smoking, but will smoke occasionally. Assessment: 15:40 General: Appears in no apparent distress. comfortable, Behavior is calm, cooperative, kr3 appropriate for age. Pain: Denies pain. Neuro: Level of Consciousness is awake, alert, obeys commands, Oriented to person, place, time, situation. Cardiovascular: Reports lightheadedness, syncope, Rhythm is atrial fibrillation. Respiratory: Airway is patent Respiratory effort is even, unlabored, Respiratory pattern is regular, symmetrical. GI: No signs and/or symptoms were reported involving the gastrointestinal system. : No signs and/or symptoms were reported regarding the genitourinary system. EENT: No signs and/or symptoms were reported regarding the EENT system. Derm: No signs and/or symptoms reported regarding the dermatologic system. Musculoskeletal: Reports weakness in generalized weakness. 16:45 Reassessment: Patient appears in no apparent distress at this time. Patient and/or kr3 family updated on plan of care and expected duration. Pain level reassessed. 17:49 Reassessment: Patient appears in no apparent distress at this time. Patient and/or kr3 family updated on plan of care and expected duration. Pain level reassessed. Vital Signs: 15:28 BP 143 / 62; Pulse 60; Resp 16 S; Pulse Ox 98% on R/A; Weight 50.8 kg; Height 5 ft. 4 iw in. ; Pain 3/10; 17:15 BP 156 / 80; Pulse 61; Resp 18; Pulse Ox 100% on R/A; kr3 18:34 BP 147 / 56 Supine; Pulse 64 RA; kr3 18:34 BP 157 / 67 Sitting; Pulse 66 RA; kr3 18:34 BP 153 / 69 Standing; Pulse 77 RA; kr3 15:28 Body Mass Index 19.22 (50.80 kg, 162.56 cm) iw 15:28 Pain Scale: Adult ED Course: 15:06 Patient arrived in ED. am2 15:15 Joey Garza DO is Attending Physician. ms3 15:32 Triage completed. iw 15:34 Arm band placed on. iw 15:35 Juany Trinidad, RN is Primary Nurse. kr3 15:47 CT Head Brain wo Cont In Process Unspecified. EDMS 16:03 Chest Single View XRAY In Process Unspecified. EDMS 16:32 Inserted saline lock: 22 gauge in right antecubital area, using aseptic technique. kr3 Blood collected. 16:50 Notified ED physician of a critical lab result(s). TROP 64.3. hb 16:55 Nellie Rodriguez MD is Hospitalizing Provider. ms3 Administered Medications: No medications were administered Outcome: 16:57 Decision to Hospitalize by Provider. ms3 04 16:00 Patient left the ED. nj1 Signatures: Dispatcher [employer] EDMS Marissa Avalos RN RN Shahla Reyes RN RN Zazueta, Cassie am2 Joey Garza DO DO ms3 Juany Trinidad, RN RN kr3 Alexandra Worthington, RN RN nj1 Corrections: (The following items were deleted from the chart) 16:37 16:36 Patient left the ED. nj1 nj1
--- NOTE | 2022-09-05 17:44 | RAD REPORT ---
EXAM DESCRIPTION: RADChest Single View09/05/2022 4:01 pm CLINICAL HISTORY: syncope COMPARISON: Chest Pa And Lat (2 Views) dated 10/14/2020; Chest Pa And Lat (2 Views) dated 09/22/2016; A bdomen 1 View (KUB) dated 04/28/2016; Abdomen 1 View (KUB) dated 04/27/2016; CT RAD RX FIELD SPINE da lela 03/18/2021 TECHNIQUE: Portable AP view of the chest. FINDINGS: The lungs are clear.Calcifications along the right breast implants are present. Surgical c lips seen in the left axilla. Hyperlucency and hyperinflation again noted, may relate to COPD. No pne umothorax or effusion. The cardiomediastinal contours are unremarkable. IMPRESSION: No acute cardiopulmonary process.
[2022-09-05] MEDS ORDERED: ALPRAZOLAM 0.25 MG TABLET PO PRN (18:03)
[2022-09-05] MEDS ORDERED: ACETAMINOPHEN 500 MG TAB PO PRN (18:03)
[2022-09-05] MEDS ORDERED: ZOLPIDEM TARTRATE 10 MG TABLET PO PRN (22:14)
[2022-09-05 22:23] VITALS: BMI 19.2
[2022-09-05] MEDS ORDERED: ZOLPIDEM TARTRATE 10 MG TABLET ONE (22:52)
[2022-09-06 03:05] LABS: Hematocrit 30.6 % (36.0-45.0); Lymphocytes % 33.6 % (15.3-44.8); MCV 99.7 fL (80-100); MPV 7.1 fL (7.6-11.3); RBC Red Blood Cell Count 3.07 M/uL (3.86-4.86)
[2022-09-06 04:41] VITALS: TEMP 97.8
[2022-09-06] MEDS ORDERED: ASPIRIN EC 81 MG TAB PO SCH (09:00)
[2022-09-06] MEDS ORDERED: ENOXAPARIN 40 MG/0.4 ML SQ SCH (09:00)
[2022-09-06] MEDS ORDERED: ENOXAPARIN 40 MG/0.4 ML SQ ONE (09:37)
[2022-09-06] MEDS ORDERED: ASPIRIN EC 81 MG TAB PO ONE (09:37)
[2022-09-06] MEDS ORDERED: LOPERAMIDE HCL 2 MG CAPSULE PO PRN (10:27)
[2022-09-06] MEDS ORDERED: ACETAMINOPHEN 500 MG TAB PO PRN (10:27)
[2022-09-06] MEDS ORDERED: GRANISETRON HCL 1 MG PO PRN (10:27)
[2022-09-06] MEDS ORDERED: HOME MED 1 EA UNK (Cetirizine Hcl [Zyrtec] 10 MG Capsule) PO PRN (10:27)
--- NOTE | 2022-09-06 10:30 | P.HP ---
Certification for Inpatient Patient admitted to: Observation With expected LOS: <2 Midnights Patient will require the following post-hospital care: None Practitioner: I am a practitioner with admitting privileges, knowledge of patient current condition, hospital course, and medical plan of care. Services: Services provided to patient in accordance with Admission requirements found in Title 42 Section 412.3 of the Code of Federal Regulations Patient History Date of Service: 09/05/22 Reason for admission: Syncope with collapse History of Present Illness: Patient is an 82-year-old female who presents to the emergency room after having a syncopal episode and collapse in. Patient was with her who witnessed her passing out. Patient had passed out for approximately 5-10 minutes. Patient has history of breast cancer and was recently started on medication. Patient also has had prior cardiac issues. Patient has a history of atrial fibrillation with RVR diagnosed in the past. Currently patient is doing well and she appears to be in sinus rhythm. She will be admitted to the hospital and we will monitor her serial troponins. Her initial troponin was mildly elevated. Will continue with serial troponins and get Cardiology consultation. Patient will be admitted for observation. Allergies codeine Allergy (Verified 10/14/20 15:13) Nausea/Vomiting iodine [Iodine] Allergy (Verified 10/14/20 15:13) Rash morphine Allergy (Verified 10/14/20 15:13) Nausea/Vomiting Sulfa (Sulfonamide Antibiotics) [Sulfa(Sulfonamide Antibiotics)] Allergy (Verified 10/14/20 15:13) Rash sulfate ion Allergy (Verified 10/14/20 15:13) headache Hydrocodone-Acet Allergy (Uncoded 10/14/20 15:13) Nausea/Vomiting Home Medications: Acetaminophen [Tylenol Extra Strength] 500 mg PO DAILYPRN PRN 10/14/20 Atorvastatin Calcium [Lipitor] 10 mg PO BEDTIME 10/14/20 Cholecalciferol (Vitamin D3) [Vitamin D 5,000 Iu Cap] 5,000 unit PO DAILY 10/14/20 Famotidine [Pepcid] 40 mg PO BEDTIME 10/14/20 Levothyroxine [Synthroid] 112 mcg PO [id number] 10/14/20 Montelukast [Singulair] 10 mg PO DAILY 10/14/20 PARoxetine HCL [Paxil] 10 mg PO DAILY 10/14/20 Rivaroxaban [Xarelto] 20 mg PO DAILY AT SUPPER 10/14/20 Zolpidem Tartrate [Ambien] 10 mg PO BEDTIME 10/14/20 carvediloL [Carvedilol] 6.25 mg PO BID 10/14/20 Abemaciclib [Verzenio] 50 mg PO BID 09/05/22 Anastrozole [Arimidex] 1 mg PO DAILY 09/05/22 Cetirizine HCl [Zyrtec] 10 mg PO BEDTIME PRN 09/05/22 Granisetron HCl [Kytril] 4 mg PO PRN PRN 09/05/22 Loperamide [Imodium*] 2 mg PO PRN PRN 09/05/22 - Past Medical/Surgical History Has patient received pneumonia vaccine in the past: Yes Diabetic: No -: Atrial fibrillation, cardiology-Dr Barry on anti coagulation -: Hyperlipidemia -: Surgical hypothyroidism -: Hypertension -: History of thyroid cancer post surgery -: Diverticulosis with history of diverticulitis -: GERD -: Cataracts -: Insomnia -: Former tobacco abuse -: Insomnia -: Tobacco abuse -: Thyroidectomy -: Hysterectomy -: Appendectomy -: Cataract Surgery -: Cholecystectomy -: Bilateral breast implants -: Right femoral hernia repair Psychosocial/ Personal History: She is . She has 2 children. 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 - Family History Mother Medical History: Heart disease, Cancer Notes: stomach and brain tumor removals Brother Medical History: Diabetes Notes: DM2 Father Medical History: Heart disease, Hypertension, Stroke, Cancer grandmother Medical History: Cancer Notes: breast cancer - Social History Smoking Status: Former smoker Alcohol use: No CD- Drugs: No Caffeine use: No Place of Residence: Home Review of Systems 10-point ROS is otherwise unremarkable Physical Examination - Vital Signs Temperature: 97.8 F Blood Pressure: 142/71 Pulse: 70 Respirations: 17 Pulse Ox (%): 94 - Physical Exam General: Alert, In no apparent distress, Oriented x3 HEENT: Atraumatic, PERRLA, Mucous membr. moist/pink, EOMI, Sclerae nonicteric Neck: Supple, 2+ carotid pulse no bruit, No LAD, Without JVD or thyroid abnormality Respiratory: Clear to auscultation bilaterally, Normal air movement Cardiovascular: Regular rate/rhythm, Normal S1 S2, No murmurs Gastrointestinal: Normal bowel sounds, Soft and benign, Non-distended, No tenderness Musculoskeletal: No clubbing, No swelling, No contractures, No tenderness Integumentary: No rashes Neurological: Normal gait, Normal speech, Normal strength at 5/5 x4 extr, Normal tone, Normal affect Lymphatics: No axilla or inguinal lymphadenopathy - Studies Laboratory Data (last 24 hrs) 09/05/22 16:04: PT 17.2 H, INR 1.56, APTT 37.7 H 09/05/22 16:04: WBC 3.40 L, Hgb 11.9 L, Hct 34.3 L, Plt Count 192 09/05/22 16:04: Sodium 131 L, Potassium 4.5, BUN 11, Creatinine 0.79, Glucose 99, Magnesium 1.9, Total Bilirubin 0.8, AST 11 L, ALT 12 L, Alkaline Phosphatase 78 Assessment & Plan - Problems (Diagnosis) (1) History of breast cancer Current Visit: Yes Status: Acute (2) Atrial fibrillation Onset Date: 04/27/16 Current Visit: No Status: Chronic Qualifiers: Atrial fibrillation type: chronic (3) COPD (chronic obstructive pulmonary disease) Current Visit: No Status: Chronic Qualifiers: COPD type: unspecified COPD Qualified Code(s): J44.9 - Chronic obstructive pulmonary disease, unspecified (4) GERD (gastroesophageal reflux disease) Onset Date: 04/27/16 Current Visit: No Status: Chronic Qualifiers: Esophagitis presence: esophagitis presence not specified Qualified Code(s): K21.9 - Gastro-esophageal reflux disease without esophagitis (5) Hypertension Onset Date: 04/27/16 Current Visit: No Status: Chronic Qualifiers: Hypertension type: essential hypertension Qualified Code(s): I10 - Essential (primary) hypertension (6) Hypothyroidism Onset Date: 04/27/16 Current Visit: No Status: Chronic Qualifiers: Hypothyroidism type: postoperative Qualified Code(s): 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 Plan to do an echocardiogram and carotid Doppler. I did not hear any carotid bruits nor did I hear a cardiac murmur. Will monitor patient on telemetry as well to make sure she is not having any other uncontrolled arrhythmias. 2. Monitor electrolytes 3. rule out infectious etiology 4. Monitor hemodynamics and check orthostatics 5. Monitor hydration status and check renal function and IV fluids 6. Resume home medications 7. Patient may need further outpatient workup. She has had MRI of the brain which is negative. Patient no evidence of metastatic disease. Plan to just observation overnight and anticipate discharge in the morning Discharge Plan: Home Plan to discharge in: Greater than 2 days - Advance Directives Does patient have a Living Will: No Does patient have a Durable POA for Healthcare: No - Code Status/Comfort Care Code Status Assessed: Yes Code Status: Full Code Critical Care: No Time Spent Managing PTS Care (In Minutes): 45
[2022-09-06] MEDS ORDERED: carvediloL 6.25 MG TAB PO ONE (10:37)
[2022-09-06] MEDS ORDERED: carvediloL 6.25 MG TAB ONE (11:45)
[2022-09-06] MEDS ORDERED: ACETAMINOPHEN 500 MG TAB ONE (11:45)
--- NOTE | 2022-09-06 11:51 | RAD REPORT ---
EXAM DESCRIPTION: US - CP - 09/06/2022 11:31 am CLINICAL HISTORY: Carotid artery stenosis COMPARISON: No comparisons TECHNIQUE: Real-time sonographic evaluation of both carotid systems was performed. Doppler interroga tion was performed with waveform tracing bilaterally. FINDINGS: Normal high resistance waveforms are noted in both external carotid arteries. The common c arotid arteries and internal carotid arteries show normal low resistance waveforms. Hard and soft plaque is present at both carotid bulbs. Elevated peak systolic velocities present in t he proximal right ICA and mid left ICA. The vessels are tortuous which can cause overestimation of th e peak systolic velocities. Antegrade flow seen in both vertebral arteries. IMPRESSION: Elevated peak systolic velocities in the ICAs bilaterally. While this would correspond w ith a moderate stenosis (50-69%), this could also be an overestimation due to vessel tortuosity. Cons ider CTA for confirmation.
[2022-09-06] MEDS ORDERED: CETIRIZINE HCL 5 MG TABLET PO PRN (15:08)
[2022-09-06 16:46] VITALS: O2SAT 100
[2022-09-06 16:48] VITALS: BP 153/69
[2022-09-06] MEDS ORDERED: RIVAROXABAN 20 MG TABLET PO SCH (17:00)
[2022-09-06] MEDS ORDERED: carvediloL 6.25 MG TAB PO SCH (18:00)
[2022-09-06] MEDS ORDERED: ABEMACICLIB 50 MG PO SCH (21:00)
[2022-09-06] MEDS ORDERED: ATORVASTATIN 10 MG TAB PO SCH (21:00)
[2022-09-06] MEDS ORDERED: HOME MED 1 EA UNK (Famotidine [Pepcid] 40 MG Tablet) PO SCH (21:00)
[2022-09-06] MEDS ORDERED: ZOLPIDEM TARTRATE 10 MG TABLET PO SCH (21:00)
[2022-09-07] MEDS ORDERED: LEVOTHYROXINE SOD 0.1 MG TAB PO SCH (06:00)
[2022-09-07] MEDS ORDERED: VITAMIN D 5,000 UNIT CAP PO SCH (09:00)
[2022-09-07] MEDS ORDERED: ANASTROZOLE 1 MG TAB PO SCH (09:00)
[2022-09-07] MEDS ORDERED: PARoxetine HCL 10 MG TAB PO SCH (09:00)
[2022-09-07] MEDS ORDERED: MONTELUKAST 10 MG TAB PO SCH (09:00)
--- NOTE | 2022-09-07 12:42 | EKG ---
Test Date: 2022-09-05 Test Time: 17:01:50 Key Entry Operator: YOEL MEASUREMENT RESULTS: Intervals: Rate: 73 TX: QRSD: 94 QT: 414 QTc: 456 [place]: P: TX: QRS: 78 T: 91 INTERPRETIVE STATEMENTS: Atrial fibrillation Minimal voltage criteria for LVH, may be normal variant Anterior infarct, age undetermined Abnormal ECG Compared to ECG 10/14/2020 14:30:21 No significant changes Electronically Signed On 09-07-22 12:37:30 CDT by Sheldon Martinez
== END 2022-09-06 16:00 | disposition home or self-care (01) ==
LOC: ER 15:02 → ERHOLD 18:03
PROVIDERS: ADMIT Hospitalist; ATTEND Hospitalist
DX: R55 Syncope and collapse (principal); I48.11 Longstanding persistent atrial fibrillation; J44.9 Chronic obstructive pulmonary disease, unspecified; K21.9 Gastro-esophageal reflux disease without esophagitis; I10 Essential (primary) hypertension; E89.0 Postprocedural hypothyroidism; Z88.6 Allergy status to analgesic agent; Z79.01 Long term (current) use of anticoagulants; Z91.09 Other allergy status, other than to drugs and biological substances; Z88.2 Allergy status to sulfonamides; Z85.3 Personal history of malignant neoplasm of breast
CPT/HCPCS: 36415; 70450; 71045; 80048; 80061; 80076; 81001; 83735; 84484; 85025; 85610; 85730; 93005; 93880; 99283; G0378; J1650

== ENCOUNTER → 2023-03-22 | Day surgery (SDC) | payer BC ==
[2011-07-03 12:19] VITALS: BP 119/63
--- NOTE | 2023-03-22 13:07 | RAD REPORT ---
EXAM DESCRIPTION: Ultrasound-guided vacuum assisted left breast/chest wall core biopsy CLINICAL HISTORY: Breast mass C50.812, R93.89 COMPARISON: Liver Only dated 02/03/2023 FINDINGS: The risks and benefits were discussed with the patient. Informed consent was obtained and time-out was performed. The patient's left breast /chest wall region, overlying the small palpable abnormality, was prepped a nd draped in the usual sterile fashion. 1% lidocaine was used for local anesthetic purposes. Utilizing aseptic technique and ultrasound guidance, a 12 gauge vacuum assisted core biopsy device wa s used to obtain 3 core specimens through the mass of interest. No post biopsy clip was placed. All collected material was sent to pathology. Patient tolerated procedure well. IMPRESSION: Successful ultrasound guided vacuum assisted left breast/chest wall mass biopsy.
== END ==
LOC: FNA 08:38
PROVIDERS: ATTEND Radiology Radiation Oncology
PROC: 0H9U3ZX Drainage of Left Breast, Percutaneous Approach, Diagnostic (ICD-10-PCS; principal; 2023-03-22)
DX: C50.812 Malignant neoplasm of overlapping sites of left female breast (principal); R93.89 Abnormal findings on diagnostic imaging of other specified body structures
CPT/HCPCS: 19083; 88305

== ENCOUNTER 2023-09-07 06:30 | Day surgery (SDC) | payer BC ==
--- NOTE | 2023-09-02 11:24 | RAD REPORT ---
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 COMPARISON: Chest Single View dated 02/02/2023; Chest Single View dated 09/05/2022; Chest Pa And Lat ( 2 Views) dated 10/14/2020; Chest Pa And Lat (2 Views) dated 09/22/2016 TECHNIQUE: PA and lateral views of the chest were obtained. FINDINGS: The lungs are hyperexpanded compatible with COPD. The heart is upper limit of normal in si ze. No fracture or aggressive bony process. IMPRESSION: COPD without acute process identified. The USPSTF recommends annual screening for lung cancer with low-dose CT (LDCT) in adults aged 50 to 8 0 years who have a 20 pack-year smoking history and currently smoke or have quit within the past 15 y ears.
[2023-09-02 11:45] LABS: Absolute Basophils 0.1 K/uL (0-0.5); Absolute Eosinophils 0.2 K/uL (0-0.5); Absolute Lymphocytes (CBC) 1.1 K/uL (0.7-4.9); Absolute Monocytes 0.5 K/uL (0.1-1.3); Absolute Neutrophil 2.9 K/uL (1.8-8.0); Basophils % 2.1 % (0-1.3); Eosinophils % 4.3 % (0-4.4); Hematocrit 36.9 % (36.0-45.0); Hemoglobin 12.2 g/dL (12.0-15.0); MCH 32.7 pg (27.0-35.0); MCV 99.2 fL (80-100); MPV 7.2 fL (7.6-11.3); Monocytes % 10.6 % (3.3-12.3); Platelets 309 thou/uL (152-406); RBC Red Blood Cell Count 3.72 M/uL (3.86-4.86); Red Cell Distribution Width 13.8 % (12.1-15.2)
[2023-09-02 11:59] LABS: PTT, Activated Partial Thromb 43.1 SECONDS (24.3-36.9); Protime INR 1.57
[2023-09-02 12:01] LABS: Anion Gap 8.8 mEq/L (5.0-15.0); Potassium 4.8 mEq/L (3.5-5.1)
--- NOTE | 2023-09-02 16:42 | EKG ---
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
[2023-09-07] MEDS ORDERED: HEPA 1000U/500MLS 2,000 UNIT/1,000 ML BAG IV ONE (06:48)
[2023-09-07] MEDS ORDERED: NITROGLYCERIN/D5W 50 MG/250 ML BTL IV ONE (06:48)
[2023-09-07] MEDS ORDERED: FENTANYL CITR 100 MCG/2 ML ONE (06:49)
[2023-09-07] MEDS ORDERED: LIDOCAINE 1% 20 ML MDV ONE (06:49)
[2023-09-07] MEDS ORDERED: MIDAZOLAM HCL 2 MG/2 ML INJ ONE ×2 (06:49→08:54)
[2023-09-07] MEDS ORDERED: CLOPIDOGREL 75 MG TABLET ONE (06:50)
[2023-09-07] MEDS ORDERED: HEPARIN 10,000 UNIT/10 ML VIAL IV ONE (06:50)
[2023-09-07] MEDS ORDERED: ATROPINE SULF 1 MG/10 ML SYR IV ONE (06:50)
[2023-09-07] MEDS ORDERED: TICAGRELOR 90 MG TABLET PO ONE (06:50)
[2023-09-07] MEDS ORDERED: ASPIRIN 325 MG TAB ONE (06:51)
[2023-09-07] MEDS ORDERED: REGADENOSON 0.4 MG/5 ML SYR IV ONE (08:25)
[2023-09-07] MEDS: NA CHLORIDE 0.9% 500 ML ONE (09:12)
[2023-09-07 16:45] VITALS: BP 146/50; TEMP 98.2; O2SAT 99
--- NOTE | 2023-09-07 19:39 | OP ---
Date of Procedure: 09/07/2023 Surgeon: Michael Brown Procedures Performed: 1.Coronary angiogram. 2.Carotid angiogram. 3.FFR of the LAD. Indication For Procedure: Unstable angina, carotid artery disease. Complications: None. Estimated Blood Loss: Less than 50 cc. Sedation Time: 45 minutes. Description Of Procedure: After risks, benefits, and alternatives were explained to the patient, the patient agreed to proceed with procedure and signed informed consent. 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 Time-out was performed. Sedation was admini stered. Right common femoral artery accessed, 6-[place] access was obtained using ultrasound-guided m icropuncture technique. A JL4 catheter was advanced over a J-wire. Selective coronary angiogram was done, that was exchanged by JR4 catheter for right coronary angiogram. Later on, those catheters we re exchanged with an EBU 3.5 mm guide to the left main artery and heparin was administered. ACT was therapeutic. [place] FFR wire was advanced across the mid LAD lesion. Baseline FFR was 0.97, peak FFR is 0.93. Wire was pulled back. Final angiogram shows TERRI-3 flow. EBU was exchanged to a Garza cat heter that we used for selective angiogram of the right and left internal carotid arteries. At the e of procedures, all catheters were removed and sheath was secured in place for manual compression l ater. The patient was moved to recovery back in stable condition. Findings: 1.Left main is normal. 2.LAD is proximal mild LI, mid 40% to 50% disease. FFR baseline was 0.97, peak 0.93, distal tortuou s, mild LI. 3.Left circ, mild LI. 4.RCA, mild LI. Carotid Artery Angiogram Findings: 1.Right internal carotid artery patent, proximal 20% disease. 2.Left internal carotid artery patent, proximal 30% disease. Assessment And Plan: 1.Mild to moderate mid LAD disease, FFR negative. 2.Mild bilateral carotid artery disease. Plan is to continue medical management. SEE/MODL Voice ID: [id number] Report ID: [id number]
== END 2023-09-07 15:45 | disposition home or self-care (01) ==
LOC: CCL 06:30
PROVIDERS: ATTEND Internal Medicine
PROC: B3181ZZ Fluoroscopy of Bilateral Internal Carotid Arteries using Low Osmolar Contrast (ICD-10-PCS; principal; 2023-09-07)
PROC: B2111ZZ Fluoroscopy of Multiple Coronary Arteries using Low Osmolar Contrast (ICD-10-PCS; 2023-09-07)
PROC: 4A033BC Measurement of Arterial Pressure, Coronary, Percutaneous Approach (ICD-10-PCS; 2023-09-07)
DX: I25.110 Atherosclerotic heart disease of native coronary artery with unstable angina pectoris (principal); I65.23 Occlusion and stenosis of bilateral carotid arteries; I34.0 Nonrheumatic mitral (valve) insufficiency; I11.0 Hypertensive heart disease with heart failure; I50.32 Chronic diastolic (congestive) heart failure; E78.5 Hyperlipidemia, unspecified; F17.210 Nicotine dependence, cigarettes, uncomplicated; Z79.899 Other long term (current) drug therapy; Z88.2 Allergy status to sulfonamides; Z88.5 Allergy status to narcotic agent; Z88.8 Allergy status to other drugs, medicaments and biological substances
CPT/HCPCS: 36222; 36415; 71046; 76937; 80048; 85025; 85347; 85610; 85730; 93005; 93454; 99152; 99153; C1769; C1893; J0461; J2001; J2250; J2785; J3010; J7040; Q9966